=== PATIENT | female | born 1935 | race Caucasian/White ===

== ENCOUNTER → 2016-05-22 | Outpatient (CLI) | payer OTHER ==
[2016-05-22 10:29] LABS: BASO % 0.5 %; BASO ABS # 0.03 K/uL (0-0.2); COMPLETE YES; EOS % 3.1 %; HEMATOCRIT 44.3 % (37-47); IG% 0.2 %; LYMPH % 35.4 %; LYMPH ABS # 2.25 K/uL (1.2-3.4); MEAN CELL VOLUME 87.2 fL (80-100); MEAN CORPUSCULAR HEMOGLOBIN 29.1 pg (25-34); MEAN CORPUSCULAR HGB CONC 33.4 g/dl (32-36); MONO % 6.6 %; NEUT % 54.2 %; PLATELET COUNT 240 K/uL (130-400); RED BLOOD COUNT 5.08 M/uL (4.2-5.4); WHITE BLOOD COUNT 6.36 K/uL (4.8-10.8)
[2016-05-22 10:38] LABS: BLOOD UREA NITROGEN 29 mg/dl (7-18); BUN/CREATININE RATIO 32.5 (10-20); CALCIUM 9.5 mg/dl (8.5-10.1); CARBON DIOXIDE 27 mmol/L (21-32); CHLORIDE 103 mmol/L (98-107); CREATININE 0.89 mg/dl (0.60-1.20); GLUCOSE 141 mg/dl (70-99); POTASSIUM 4.1 mmol/L (3.5-5.1); SODIUM 139 mmol/L (136-145)
[2016-05-22 10:40] LABS: ESTIMATED AVERAGE GLUCOSE 203 mg/dl; HA1C FLAG Normal (Normal)
[2016-05-22 10:48] LABS: THYROID STIMULATING HORMONE 0.307 uIu/ml (0.300-4.500)
== END ==
LOC: C.LABUPNIT 09:59
PROVIDERS: ATTEND Family Medicine
DX: E13.9 Other specified diabetes mellitus without complications (principal); L10.9 Pemphigus, unspecified; I25.10 Atherosclerotic heart disease of native coronary artery without angina pectoris; E03.9 Hypothyroidism, unspecified

== ENCOUNTER → 2016-05-23 | Outpatient (CLI) | payer OTHER ==
[2016-05-23 10:48] LABS: URINE APPEARANCE CLOUDY (CLEAR); URINE BILIRUBIN NEG (NEG); URINE COLOR YELLOW; URINE EPITHELIAL CELL AUTO >30 /lpf (0-5); URINE NITRITE NEG (NEG); URINE SPECIFIC GRAVITY 1.016 (1.000-1.030); UROBILINOGEN NEG (NEG)
[2016-05-23 11:04] LABS: MANUAL MICROSCOPIC REQUIRED? NO; REVIEW REQ? YES
[2016-05-23 11:18] LABS: URINE MUCUS PRESENT (NONE PRSENT)
== END ==
LOC: C.LABUPNIT 09:57
PROVIDERS: ATTEND Family Medicine
DX: R41.82 Altered mental status, unspecified (principal)

== ENCOUNTER → 2016-07-05 | Outpatient (CLI) | payer OTHER ==
[2016-07-05 09:54] LABS: BASO % 0.5 %; BASO ABS # 0.04 K/uL (0-0.2); COMPLETE YES; EOS % 3.2 %; HEMATOCRIT 45.1 % (37-47); IG% 0.3 %; LYMPH % 23.7 %; LYMPH ABS # 1.85 K/uL (1.2-3.4); MEAN CELL VOLUME 87.7 fL (80-100); MEAN CORPUSCULAR HEMOGLOBIN 29.2 pg (25-34); MEAN CORPUSCULAR HGB CONC 33.3 g/dl (32-36); NEUT % 65.3 %; PLATELET COUNT 317 K/uL (130-400); RED BLOOD COUNT 5.14 M/uL (4.2-5.4); WHITE BLOOD COUNT 7.81 K/uL (4.8-10.8)
[2016-07-05 10:43] LABS: BLOOD UREA NITROGEN 26 mg/dl (7-18); BUN/CREATININE RATIO 26.3 (10-20); CALCIUM 10.1 mg/dl (8.5-10.1); CARBON DIOXIDE 31 mmol/L (21-32); CHLORIDE 100 mmol/L (98-107); CREATININE 0.98 mg/dl (0.60-1.20); GLUCOSE 188 mg/dl (70-99); POTASSIUM 3.7 mmol/L (3.5-5.1); SODIUM 139 mmol/L (136-145)
[2016-07-05 10:47] LABS: C-REACTIVE PROTEIN 1.29 mg/dl (0-0.29); RHEUMATOID FACTOR < 10.0 U/mL (0-15)
[2016-07-05 12:47] LABS: LYME DISEASE AB IGG NEG (NEG); LYME DISEASE AB IGM NEG (NEG)
--- NOTE | 2016-07-09 12:51 | CODING QUERY MEDICAL NECESSITY ---
CQSUPPORTING DIAGNOSIS NEEDED A supporting diagnosis is required for the test/procedure performed on this patient in order for us to be reimbursed by the patient's insurance. Please provide a supporting diagnosis for the following test/procedure listed below next to the test name along with your signature. *If there is no additional diagnosis for this patient that would support the following test/procedure please document that below next to the test/procedure. Test(s)/Procedure(s) that require a supporting diagnosis: DOS 07/05/16 VITAMIN D TEST Provider Signature: Date: Thank you Bibiana Villafuerte Health Information Management Once completed, please kindly fax back to [phone] For questions please call [phone]
== END ==
LOC: C.LABUPNIT 09:20
PROVIDERS: ATTEND Family Medicine
DX: L10.9 Pemphigus, unspecified (principal); I95.1 Orthostatic hypotension; N39.0 Urinary tract infection, site not specified; M15.0 Primary generalized (osteo)arthritis

== ENCOUNTER → 2016-08-29 | Outpatient (CLI) | payer OTHER ==
[2016-08-29 08:29] LABS: BASO % 0.5 %; BASO ABS # 0.03 K/uL (0-0.2); COMPLETE YES; EOS % 3.6 %; HEMATOCRIT 43.9 % (37-47); IG% 0.2 %; LYMPH % 34.9 %; MEAN CELL VOLUME 88.5 fL (80-100); MEAN CORPUSCULAR HEMOGLOBIN 28.8 pg (25-34); MEAN CORPUSCULAR HGB CONC 32.6 g/dl (32-36); MEAN PLATELET VOLUME 10.9 fL (7.4-10.4); MONO % 7.1 %; NEUT % 53.7 %; PLATELET COUNT 230 K/uL (130-400); RED BLOOD COUNT 4.96 M/uL (4.2-5.4); WHITE BLOOD COUNT 6.31 K/uL (4.8-10.8)
[2016-08-29 08:42] LABS: ALT/SGPT 19 U/L (12-78); BLOOD UREA NITROGEN 25 mg/dl (7-18); BUN/CREATININE RATIO 24.6 (10-20); CARBON DIOXIDE 34 mmol/L (21-32); CHLORIDE 101 mmol/L (98-107); GLUCOSE 226 mg/dl (70-99); POTASSIUM 4.2 mmol/L (3.5-5.1); SODIUM 140 mmol/L (136-145)
[2016-08-29 08:45] LABS: ALB/GLOB RATIO 0.9 (0.9-2); ALKALINE PHOSPHATASE 98 U/L (45-117); AST/SGOT 11 U/L (15-37)
[2016-08-29 08:48] LABS: CALCIUM 9.7 mg/dl (8.5-10.1)
[2016-08-29 10:57] LABS: ESTIMATED AVERAGE GLUCOSE 232 mg/dl; HA1C FLAG Normal (Normal)
== END | disposition home or self-care (01) ==
LOC: C.LABUPUNI 07:52
PROVIDERS: ATTEND Family Medicine
DX: E13.40 Other specified diabetes mellitus with diabetic neuropathy, unspecified (principal); J44.9 Chronic obstructive pulmonary disease, unspecified; I25.10 Atherosclerotic heart disease of native coronary artery without angina pectoris

== ENCOUNTER → 2016-10-23 | Outpatient (CLI) | payer OTHER ==
[2016-10-23 08:34] LABS: HEMATOCRIT 47.2 % (37-47); MEAN CELL VOLUME 89.4 fL (80-100); MEAN CORPUSCULAR HEMOGLOBIN 27.7 pg (25-34); MEAN CORPUSCULAR HGB CONC 30.9 g/dl (32-36); MEAN PLATELET VOLUME 11.2 fL (7.4-10.4); PLATELET COUNT 266 K/uL (130-400); RED BLOOD COUNT 5.28 M/uL (4.2-5.4); WHITE BLOOD COUNT 5.65 K/uL (4.8-10.8)
[2016-10-23 08:44] LABS: BLOOD UREA NITROGEN 23 mg/dl (7-18); BUN/CREATININE RATIO 22.8 (10-20); CALCIUM 9.5 mg/dl (8.5-10.1); CARBON DIOXIDE 33 mmol/L (21-32); CHLORIDE 104 mmol/L (98-107); GLUCOSE 126 mg/dl (70-99); POTASSIUM 4.5 mmol/L (3.5-5.1); SODIUM 141 mmol/L (136-145)
[2016-10-23 08:55] LABS: THYROID STIMULATING HORMONE 0.193 uIu/ml (0.300-4.500)
== END | disposition home or self-care (01) ==
LOC: C.LABWYN 08:03
PROVIDERS: ATTEND Internal Medicine
DX: I25.10 Atherosclerotic heart disease of native coronary artery without angina pectoris (principal); E11.9 Type 2 diabetes mellitus without complications; E03.9 Hypothyroidism, unspecified

== ENCOUNTER → 2016-11-01 | Outpatient (CLI) | payer OTHER ==
[2016-11-01 17:34] LABS: URINE APPEARANCE CLEAR (CLEAR); URINE BILIRUBIN NEG (NEG); URINE COLOR YELLOW; URINE NITRITE NEG (NEG); URINE PH 5.5 (4.5-7.5); URINE SPECIFIC GRAVITY 1.023 (1.000-1.030); UROBILINOGEN NEG (NEG)
[2016-11-01 17:41] LABS: MANUAL MICROSCOPIC REQUIRED? NO; REVIEW REQ? NO
== END | disposition home or self-care (01) ==
LOC: C.LABWYN 16:27
PROVIDERS: ATTEND Internal Medicine
DX: E11.9 Type 2 diabetes mellitus without complications (principal); E03.9 Hypothyroidism, unspecified; I25.10 Atherosclerotic heart disease of native coronary artery without angina pectoris; N39.0 Urinary tract infection, site not specified

== ENCOUNTER → 2017-02-28 | Outpatient (CLI) | payer OTHER | END | disposition home or self-care (01) | LOC: C.LABWYN 09:06 | PROVIDERS: ATTEND Internal Medicine | DX: E03.9 Hypothyroidism, unspecified (principal) ==

== ENCOUNTER 2017-05-14 09:15 | Inpatient (IN) | payer OTHER, BC ==
[~2017-05-14] VITALS: Ht 152.4 cm; Wt 82.5 kg
[2017-05-14] MEDS ORDERED: SODIUM CHLORIDE 0.9% 1000ML 1,000 ML IV SCH ×2 (09:47→16:15)
[2017-05-14 10:10] LABS: BASO % 0.5 %; BASO ABS # 0.04 K/uL (0-0.2); EOS % 3.7 %; EOS ABS # 0.28 K/uL (0-0.5); HEMATOCRIT 41.8 % (37-47); HEMOGLOBIN 14.1 g/dL (12.0-16.0); IG# 0.02 K/uL (0.00-0.02); LYMPH % 24.3 %; LYMPH ABS # 1.85 K/uL (1.2-3.4); MEAN CELL VOLUME 88.4 fL (80-100); MEAN CORPUSCULAR HEMOGLOBIN 29.8 pg (25-34); MEAN CORPUSCULAR HGB CONC 33.7 g/dl (32-36); MEAN PLATELET VOLUME 10.6 fL (7.4-10.4); MONO % 6.4 %; MONO ABS # 0.49 K/uL (0.11-0.59); NEUT % 64.8 %; NEUT ABS # 4.94 K/uL (1.4-6.5); PLATELET COUNT 233 K/uL (130-400); RED CELL DISTRIBUTION WIDTH CV 13.5 % (11.5-14.5); WHITE BLOOD COUNT 7.62 K/uL (4.8-10.8)
[2017-05-14 10:11] LABS: INR 0.9 (0.9-1.1); PTT PATIENT 26.6 SECONDS (21.0-31.0)
[2017-05-14 10:19] LABS: CALCIUM 9.8 mg/dl (8.5-10.1); CREATININE 1.05 mg/dl (0.60-1.20)
--- NOTE | 2017-05-14 10:30 | DIAGNOSTIC IMAGING REPORT ---
CHEST ONE VIEW PORTABLE CLINICAL HISTORY: Stroke COMPARISON STUDY: No previous studies for comparison. FINDINGS: There are postsurgical changes of midline sternotomy. The heart is borderline enlarged. There is no failure. There is no focal pulmonary consolidation. There are no pleural effusions. Opacities within the left mid and lower lung zone are felt to be atelectatic. There are old bilateral rib deformities. There is a left subclavian dual-chamber central venous pacemaker.[ IMPRESSION: No active disease in the chest. Electronically signed by: Oni Navarrete M.D. 05/14/2017 10:29 AM Dictated Date/Time: 05/14/2017 10:28 AM
--- NOTE | 2017-05-14 10:54 | DIAGNOSTIC IMAGING REPORT ---
HEAD CT NONCONTRAST CT DOSE: 638.56 mGycm HISTORY: Abnormal movement and left arm and left leg. Stroke TECHNIQUE: Multiaxial CT images of the head were performed without the use of intravenous contrast. Automated exposure control was utilized for this study. A dose lowering technique was utilized adhering to the principles of ALARA. Comparison: None. Findings: The paranasal sinuses and mastoid air cells are clear. The calvarium and skull base are intact. There is no mass, hematoma, midline shift, acute territorial infarct. White matter hypodensity is nonspecific but suggestive of microvascular ischemic change. The ventricles and sulci demonstrate mild age-related involutional changes. A 4 mm hypodensity within the left basal ganglia and a 5 mm hypodensity within the posterior limb of the right internal capsule best seen on image 13. These are consistent with age indeterminate lacunar infarcts. Impression: 1. No acute territorial infarct. 2. Subcentimeter hypodense foci within the left basal ganglia and posterior limb of the right internal capsule. 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 Electronically signed by: Juan Carlos Roblero M.D. 05/14/2017 10:53 AM Dictated Date/Time: 05/14/2017 10:47 AM
[2017-05-14] MEDS ORDERED: LORAZEPAM 2 MG/ML 1 ML VIAL IV STA (12:00)
[2017-05-14] MEDS ORDERED: INSDGI SC (12:04)
[2017-05-14] MEDS ORDERED: LEVO88TA PO (12:04)
[2017-05-14] MEDS ORDERED: MULTCAP33 PO (12:04)
[2017-05-14] MEDS ORDERED: INSDGI SQ (12:04)
[2017-05-14] MEDS ORDERED: BIOT1TAB5 PO (12:04)
[2017-05-14] MEDS ORDERED: ASPCH81X PO (12:04)
[2017-05-14] MEDS ORDERED: INSU100I SC (12:04)
[2017-05-14] MEDS ORDERED: LACTCAP3 PO (12:04)
[2017-05-14] MEDS ORDERED: CHOL1CAP57 PO (12:04)
[2017-05-14] MEDS ORDERED: PRMT10 PO (12:04)
[2017-05-14] MEDS ORDERED: INSU100I2 SQ (12:04)
[2017-05-14] MEDS ORDERED: DULO60CA44 PO (12:04)
[2017-05-14] MEDS ORDERED: MAGNESIUM HYDROXIDE SUSP 30 ML UDC PO PRN (14:15)
[2017-05-14] MEDS ORDERED: ONDANSETRON INJ 2 MG/ML 2 ML VIAL IV PRN (14:15)
[2017-05-14] MEDS ORDERED: GLUCAGON FOR INJ 1 MG VIAL SQ PRN (14:30)
[2017-05-14] MEDS ORDERED: GLUCOSE 40% GEL 15 GM TUBE PO PRN (14:30)
[2017-05-14] MEDS ORDERED: DEXTROSE 50% 50 ML SYR IV PRN (14:30)
[2017-05-14] MEDS ORDERED: GLUCOSE 10 TABS/TUBE PO PRN (14:30)
--- NOTE | 2017-05-14 14:31 | Neurology Consultation ---
Neurology Consultation Date of Consultation: May 14, 2017. Attending Physician: Primary Care Physician: Anton Perez Reason for Consultation: seizure like activity History of Present Illness Source: patient, family Gilda is a 81 year old female who started having left sided movement which she is unable to control. She has a PMH DM, CAD with bipass x 4 2002, pacemaker , orthostatic hypotension,dementia who states she started having issues with movement yesterday. she states she has always had movement at night with her feet but the arm was never effected. Her daughter states they gave her ativan in the ED which put her to sleep and the only movement at that time was her left foot. She denies any new medications but does say she has not felt well lately and does get alot of UTI's. She states her gait is off and she feel unsteady. denies CP, SOB, abdominal pain, numbness tingling, vision changes, N, V, bowel or bladder symptoms. Allergies Coded Allergies: Amoxicillin (Verified Allergy, Unknown, unknown, 05/14/17) Clavulanic Acid (Verified Allergy, Unknown, unknown, 05/14/17) Uncoded Allergies: ANTIBIOTIC (Adverse Reaction, Unknown, CAUSED C-DIFF, 05/14/17) Current Inpatient Medications Current Inpatient Medications Medications (Trade) Dose Ordered Sig/Krish Route Start Time Stop Time Status Last Admin Dose Admin Sodium Chloride 1,000 ml @ 50 mls/hr Q20H IV 05/14/17 09:47 06/13/17 09:46 05/14/17 10:51 50 MLS/HR Acetaminophen (Tylenol Tab) 650 mg Q4H PRN PO 05/14/17 14:15 06/13/17 14:14 UNV Magnesium Hydroxide (Milk Of Magnesia Susp) 30 ml Q12H PRN PO 05/14/17 14:15 06/13/17 14:14 UNV Ondansetron HCl (Zofran Inj) 4 mg Q6H PRN IV 05/14/17 14:15 06/13/17 14:14 UNV Nitroglycerin (Nitrostat Tab) 0.4 mg UD PRN SL 05/14/17 14:15 06/13/17 14:14 UNV Heparin Sodium (Porcine) (Heparin Sq 5000 Unit/0.5ml) 5,000 unit Q12 SQ 05/14/17 21:00 06/13/17 20:59 UNV Insulin Glargine (Lantus Solostar Pen) 10 units Q12 SC 05/14/17 21:00 06/13/17 20:59 UNV Insulin Aspart (novoLOG ASPART) SLIDING SCALE If C... ACHS SC 05/14/17 16:00 06/13/17 15:59 UNV Glucose (Glucose 40% Gel) 15-30 GRAMS 15 GRAMS... UD PRN PO 05/14/17 14:30 06/13/17 14:29 UNV Glucose (Glucose Chew Tab) 4-8 Tablets 4 Tabl... UD PRN PO 05/14/17 14:30 06/13/17 14:29 UNV Dextrose (Dextrose 50% 50ML Syringe) 25-50ML OF 50% DW IV FOR... UD PRN IV 05/14/17 14:30 06/13/17 14:29 UNV Glucagon (Glucagon Inj) 1 mg UD PRN SQ 05/14/17 14:30 06/13/17 14:29 UNV Miscellaneous Information (Consult Glycemic Management Pharmacy) 1 ea ONE STAT N/A 05/14/17 14:21 05/14/17 14:22 UNV Aspirin (Aspirin Chew) 81 mg DAILY PO 05/15/17 09:00 06/14/17 08:59 UNV Duloxetine HCl (Cymbalta Cap) 60 mg DAILY PO 05/15/17 09:00 06/14/17 08:59 UNV Levothyroxine Sodium (Synthroid Tab) 88 mcg DAILY PO 05/15/17 09:00 06/14/17 08:59 UNV Midodrine (Proamatine Tab) 10 mg TID PO 05/14/17 21:00 06/13/17 20:59 UNV Non-Formulary Medication (Cholecalciferol (Vitamin D3)) 1,000 units DAILY PO 05/15/17 09:00 06/14/17 08:59 UNV Non-Formulary Medication (Multiple Vitamins W/ Minerals (Preservision Areds)) 1 cap BID PO 05/14/17 21:00 06/13/17 20:59 UNV Physical Exam Vital Signs (Past 24 Hrs): Date Time Temp Pulse Resp B/P (MAP) Pulse Ox O2 Delivery O2 Flow Rate FiO2 05/14/17 14:26 114 18 131/72 96 Room Air 05/14/17 12:36 63 05/14/17 12:10 36.9 82 20 125/71 97 Room Air 05/14/17 10:07 63 18 171/81 96 Room Air 05/14/17 09:41 112 26 167/102 97 Room Air 05/14/17 09:30 95 Room Air 05/14/17 09:30 111 05/14/17 09:18 36.9 137 18 176/100 96 Room Air Physical Exam: Constitutional: appearance nourished, healthy and obese Ears, Nose, Mouth and Throat: mucous membranes moist, no injection and skin normal, eyes normal Cardiovascular: normal S-1 and S-2 and regular rate and rhythm Respiratory: clear to auscultation (CTA) and no rales, rhonchi or wheeze Musculoskeletal: no peripheral edema and decreased distal pulses Skin: LE neurocutaneous disease noted but skin intact LE, UE erythema left arm Eyes: extraocular muscles intact (EOMI) and pupils equal, round and reactive to light (PERRL) NEUROLOGIC EXAMINATION: Mental status: Alert and interactive Oriented [facility], May 14, 2017, daughter name and why she is here Oriented to person Speech slight dysarthria Cranial Nerves smile eye brow raise symmetric Reflexes: Deep tendon reflexes were symmetrical and graded 2/5. Plantar responses were flexor. Sensory: decreased sensation LE Coordination: finger to nose on right no bi pass, dysmetric on left Gait/Stance: Posture normal. Gait able to stand with no assistance, walks with 2 person minimal assistance Motor: Negative for pronator drift of out stretched arms with eyes closed. 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 biceps triceps deltoids 5/5 bilaterally, hip flex plantar flex ext 5/ 5 bilaterally Laboratory Results Past 24 Hours: 05/14/17 09:38 Red Blood Count 4.73, Mean Corpuscular Volume 88.4, Mean Corpuscular Hemoglobin 29.8, Mean Corpuscular Hemoglobin Concent 33.7, Mean Platelet Volume 10.6, Neutrophils (%) (Auto) 64.8, Lymphocytes (%) (Auto) 24.3, Monocytes (%) (Auto) 6.4, Eosinophils (%) (Auto) 3.7, Basophils (%) (Auto) 0.5, Neutrophils # (Auto) 4.94, Lymphocytes # (Auto) 1.85, Monocytes # (Auto) 0.49, Eosinophils # (Auto) 0.28, Basophils # (Auto) 0.04 05/14/17 09:38 Test 05/14/17 09:38 05/14/17 10:00 White Blood Count 7.62 K/uL (4.8-10.8) Red Blood Count 4.73 M/uL (4.2-5.4) Hemoglobin 14.1 g/dL (12.0-16.0) Hematocrit 41.8 % (37-47) Mean Corpuscular Volume 88.4 fL (80-100) Mean Corpuscular Hemoglobin 29.8 pg (25-34) Mean Corpuscular Hemoglobin Concent 33.7 g/dl (32-36) Platelet Count 233 K/uL (130-400) Mean Platelet Volume 10.6 fL (7.4-10.4) Neutrophils (%) (Auto) 64.8 % Lymphocytes (%) (Auto) 24.3 % Monocytes (%) (Auto) 6.4 % Eosinophils (%) (Auto) 3.7 % Basophils (%) (Auto) 0.5 % Neutrophils # (Auto) 4.94 K/uL (1.4-6.5) Lymphocytes # (Auto) 1.85 K/uL (1.2-3.4) Monocytes # (Auto) 0.49 K/uL (0.11-0.59) Eosinophils # (Auto) 0.28 K/uL (0-0.5) Basophils # (Auto) 0.04 K/uL (0-0.2) RDW Standard Deviation 44.0 fL (36.4-46.3) RDW Coefficient of Variation 13.5 % (11.5-14.5) Immature Granulocyte % (Auto) 0.3 % Immature Granulocyte # (Auto) 0.02 K/uL (0.00-0.02) Prothrombin Time 9.7 SECONDS (9.0-12.0) Prothromb Time International Ratio 0.9 (0.9-1.1) Activated Partial Thromboplast Time 26.6 SECONDS (21.0-31.0) Partial Thromboplastin Ratio 1.0 Anion Gap 6.0 mmol/L (3-11) Est Creatinine Clear Calc Drug Dose 39.3 ml/min Estimated GFR () 57.7 Estimated GFR (Non- 49.8 BUN/Creatinine Ratio 28.7 (10-20) Calcium Level 9.8 mg/dl (8.5-10.1) Magnesium Level 2.3 mg/dl (1.8-2.4) Troponin I 0.025 ng/ml (0-0.045) Thyroid Stimulating Hormone (TSH) 0.839 uIu/ml (0.300-4.500) Free Thyroxine 1.08 ng/dl (0.80-1.60) Imaging CT head- Findings: The paranasal sinuses and mastoid air cells are clear. The calvarium and skull base are intact. There is no mass, hematoma, midline shift, acute territorial infarct. White matter hypodensity is nonspecific but suggestive of microvascular ischemic change. The ventricles and sulci demonstrate mild age-related involutional changes. A 4 mm hypodensity within the left basal ganglia and a 5 mm hypodensity within the posterior limb of the right internal capsule best seen on image 13. These are consistent with age indeterminate lacunar infarcts. EEG- This is a normal awake only routine EEG. There was no electrographic seizures or epileptiform discharges. Impression 81 year old female with new onset left sided chorea like movement Plan 1. CT head negative for acute findings would be helpful to evaluate for stroke with MRI but patient had pacemaker 2. labs and check urine -ordered 3. EEG - read as normal 4. pacemaker interrogated no issues 5. admission for further work up 6. chorea type movements can be caused by hyperglycemia, hyperthyroid, stroke, lyme. will need further evaluation further recommendations to follow I have seen and discussed above patient with Dr Tracie Esposito, neurology Pt seen and examined. Pt has choreoathetotic/ballistic movements LUE, LLE with some abnl movement of face. No obvious L hemiparesis. The suddenness of onset suggests and event such as stroke. CT shows bl basal ganglia infarcts. P. Start klonopin in low dose, gabapentin with goal of attempting control with gabapentin. Dopaminegic blockade is used, but prefer to avoid given age, hx of autonomic neuropathy with orthostatis. Rec stroke boles, have added Plavix, repeat CT head in 2d, see if infarct more apparent. GERI Esposito,
[2017-05-14] MEDS ORDERED: PHARMACY GLYCEMIC MGMT CONSULT PRN (15:00)
--- NOTE | 2017-05-14 15:20 | Pharmacy Progress Note ---
Glycemic Control Intl Consult Date of Service May 14, 2017. Scope Glycemic Pharmacist consulted by Dr Reginaldo PA-C on 05/14/17 for glycemic control and to write orders per [facility] inpatient glycemic control protocol. Objective Weight (Kilograms): 80.000 Accuchecks BSG (last 24hrs): Test 05/14/17 09:38 Random Glucose 121 mg/dl (70-99) Laboratory Data (last 24hrs) Test 05/14/17 09:38 Anion Gap 6.0 mmol/L BUN/Creatinine Ratio 28.7 Blood Urea Nitrogen 30 mg/dl Creatinine 1.05 mg/dl Potassium Level 4.0 mmol/L Sodium Level 137 mmol/L White Blood Count 7.62 K/uL Red Blood Count 4.73 M/uL Hemoglobin 14.1 g/dL Hematocrit 41.8 % Mean Corpuscular Volume 88.4 fL Mean Corpuscular Hemoglobin 29.8 pg Mean Corpuscular Hemoglobin Concent 33.7 g/dl Platelet Count 233 K/uL Mean Platelet Volume 10.6 fL Neutrophils (%) (Auto) 64.8 % Lymphocytes (%) (Auto) 24.3 % Monocytes (%) (Auto) 6.4 % Eosinophils (%) (Auto) 3.7 % Basophils (%) (Auto) 0.5 % Neutrophils # (Auto) 4.94 K/uL Lymphocytes # (Auto) 1.85 K/uL Monocytes # (Auto) 0.49 K/uL Eosinophils # (Auto) 0.28 K/uL Basophils # (Auto) 0.04 K/uL Recent Pertinent Medications Outpatient Anti-diabetic Regimen: * Lantus 27 units SQ qAM, 11 units SQ qPM * Humalog 5 units TID plus sliding scale * A1c = pending with am labs (9.7% on 08/29/16) Assessment & Plan ASSESSMENT: * Ms Garnett is an 80yo diabetic female admitted for evaluation of seizure-like activity. * A1c is pending with am labs to evaluate glycemic control history. * Will initiate basal/bolus regimen based on home regimen and weight/stress 2. PLAN FOR INPATIENT GLYCEMIC CONTROL: * Basal insulin with LANTUS 15 units SQ BID * Correctional Insulin with NOVOLOG per scale ACHS or Q6hrs while NPO * Goal Range: Low 140 mg/dL - High 180 mg/dL * Correction Factor: 25 mg/dL/unit * Nutritional / Prandial insulin per carb ratio of 1 unit per 8 grams CHO consumed * Please note that the plan above was derived based on current level of insulin resistance and hospital stress. These recommendations are appropriate for inpatient admission only. Plan of care upon discharge will need to be reassessed to avoid potential outpatient hypo/hyperglycemia. Thank you.
[2017-05-14 15:29] VITALS: O2SAT 96; BMI 34.4
[2017-05-14] MEDS ORDERED: METOPROLOL TARTRATE 25 MG TAB PO ONE (16:45)
--- NOTE | 2017-05-14 16:54 | EEG Procedure Note ---
EEG Procedure Note Date of Service May 14, 2017. Start / End Times Start Time: 3:38 PM End Time: 3:56 PM Referring Physician Keke History This is a 81-year-old female who presents with abnormal movements. EEG for further evaluation of possible seizure etiology. Ativan given at about noon for abnormal movements. Home Medication List Scheduled Aspirin (Aspirin Chewable), 81 MG PO DAILY Biotin (Biotin), 1,000 MCG PO DAILY Cholecalciferol (Vitamin D3), 1,000 UNITS PO DAILY Duloxetine Hcl (Cymbalta), 60 MG PO DAILY Insulin Glargine (Lantus), 27 UNITS SQ QAM Insulin Glargine (Lantus), 11 UNITS SC QPM Insulin Lispro (Human) (Humalog), 5 UNITS SC TID Insulin Lispro (Human) (Humalog Kwikpen), UNITS SQ QID Lactobacillus (Acidophilus), 1 CAP PO DAILY Levothyroxine Sodium (Synthroid), 88 MCG PO DAILY Midodrine (Midodrine HCl), 10 MG PO TID Multiple Vitamins W/ Minerals (Preservision Areds), 1 CAP PO BID Inpatient Medication List Current Inpatient Medications Medications (Trade) Dose Ordered Sig/Krish Route Start Time Stop Time Status Last Admin Dose Admin Acetaminophen (Tylenol Tab) 650 mg Q4H PRN PO 05/14/17 14:15 06/13/17 14:14 Magnesium Hydroxide (Milk Of Magnesia Susp) 30 ml Q12H PRN PO 05/14/17 14:15 06/13/17 14:14 Ondansetron HCl (Zofran Inj) 4 mg Q6H PRN IV 05/14/17 14:15 06/13/17 14:14 Nitroglycerin (Nitrostat Tab) 0.4 mg UD PRN SL 05/14/17 14:15 06/13/17 14:14 Heparin Sodium (Porcine) (Heparin Sq 5000 Unit/0.5ml) 5,000 unit Q12 SQ 05/14/17 21:00 06/13/17 20:59 Insulin Glargine (Lantus Solostar Pen) 15 units BID SC 05/14/17 21:00 06/13/17 20:59 Insulin Aspart (novoLOG ASPART) SLIDING SCALE If C... ACHS SC 05/14/17 16:30 06/13/17 16:29 Glucose (Glucose 40% Gel) 15-30 GRAMS 15 GRAMS... UD PRN PO 05/14/17 14:30 06/13/17 14:29 Glucose (Glucose Chew Tab) 4-8 Tablets 4 Tabl... UD PRN PO 05/14/17 14:30 06/13/17 14:29 Dextrose (Dextrose 50% 50ML Syringe) 25-50ML OF 50% DW IV FOR... UD PRN IV 05/14/17 14:30 06/13/17 14:29 Glucagon (Glucagon Inj) 1 mg UD PRN SQ 05/14/17 14:30 06/13/17 14:29 Miscellaneous Information (Consult Glycemic Management Pharmacy) 1 ea UD PRN N/A 05/14/17 15:00 06/13/17 14:59 Aspirin (Aspirin Chew) 81 mg DAILY PO 05/15/17 09:00 06/14/17 08:59 Duloxetine HCl (Cymbalta Cap) 60 mg DAILY PO 05/15/17 09:00 06/14/17 08:59 Levothyroxine Sodium (Synthroid Tab) 88 mcg DAILYBB PO 05/15/17 06:30 06/14/17 06:29 Midodrine (Proamatine Tab) 10 mg TID@0600,1200,1800 PO 05/14/17 18:00 06/13/17 17:59 Cholecalciferol (Vitamin D Tab) 1,000 inter.unit DAILY PO 05/15/17 09:00 06/14/17 08:59 Multivitamins/ Minerals (Multivitamin W/ Minerals Tab) 1 tab BID PO 05/14/17 21:00 06/13/17 20:59 Metoprolol Tartrate (Lopressor Tab) 25 mg NOW ONCE PO 05/14/17 16:45 05/14/17 16:46 Sodium Chloride 1,000 ml @ 80 mls/hr [id number] IV 05/14/17 16:15 05/15/17 04:44 Metoprolol Tartrate (Lopressor Tab) 25 mg BID PO 05/15/17 07:00 06/14/17 06:59 Description This is a 21 electrode EEG with a single channel dedicated to limited EKG. The electrodes were placed in accordance with the International 10-20 system. Frequent intermittent muscle and movement artifact noted At the start of the recording the patient was in an awake state. Background was well organized and composed of symmetric mixed alpha and beta frequencies. There was a symmetric well-formed moderate amplitude 8-9 Hz posterior dominant rhythm that was reactive to eye opening and closure. Hyperventilation was not done. Intermittent photic stimulation was not done. There was no state changes or sleep transients. On video the patient was noted to have frequent head, neck, and upper body writhing and nonrhythmic movements (appeared like dyskinesias). Interpretation This is a normal awake only routine EEG. There was no electrographic seizures or epileptiform discharges. Clinical Correlation A normal EEG does not rule out epilepsy if there is a strong clinical suspicion. There was no EEG correlation to movement seen on video.
--- NOTE | 2017-05-14 17:06 | EMERGENCY ROOM VISIT NOTE ---
History Report prepared by [place]: Krystle Licea Under the Supervision of: Dr. Abhay Davies M.D. First contact with patient: 09:33 Chief Complaint: OTHER COMPLAINT Stated Complaint: JERKY MOTIONS - THINKS MAY BE BECAUSE OF MED History of Present Illness The patient is a 81 year old female who presents to the Emergency Room with complaints of intermittent jerking movements since yesterday. The patient states that she was making her bed yesterday and she became short of breath and had to sit down. Around that time she developed jerking movements of the left side of her body. She states that this has persisted today and seems to be more pronounced today. The patient is unable to make these jerking movements stop. She is normally able to ambulate with a walker. She has been able to walk today but states that she has felt "very wobbly." Per daughter, the patient is not having slurred speech but she is "not speaking as succinctly as normal." Daughter notes that the patient's blood sugar was low yesterday at 87. The patient denies headache, numbness, weakness, chest pain, abdominal pain, vomiting, and diarrhea. She denies any family history of Parkinson's disease. She denies any recent changes to her medications. She has a pacemaker. The only psychiatric meds she is on is Cymbalta. Source of History: patient, family Onset: yesterday Position: other (left side of body) Quality: other (jerking) Timing: intermittent, worsening Associated Symptoms: No headache, No chest pain, No vomiting, No abdominal pain, No diarrhea, No weakness, No numbness Review of Systems See HPI for pertinent positives & negatives. A total of 10 systems reviewed and were otherwise negative. Past Medical & Surgical Medical Problems: (1) Movement disorder (2) Type 2 diabetes mellitus without complications Family History Non-pertinent due to advanced age. Social History Smoking Status: Never Smoker Housing Status: shelter Current/Historical Medications Scheduled Aspirin (Aspirin Chewable), 81 MG PO DAILY Biotin (Biotin), 1,000 MCG PO DAILY Cholecalciferol (Vitamin D3), 1,000 UNITS PO DAILY Duloxetine Hcl (Cymbalta), 60 MG PO DAILY Insulin Glargine (Lantus), 27 UNITS SQ QAM Insulin Glargine (Lantus), 11 UNITS SC QPM Insulin Lispro (Human) (Humalog), 5 UNITS SC TID Insulin Lispro (Human) (Humalog Kwikpen), UNITS SQ QID Lactobacillus (Acidophilus), 1 CAP PO DAILY Levothyroxine Sodium (Synthroid), 88 MCG PO DAILY Midodrine (Midodrine HCl), 10 MG PO TID Multiple Vitamins W/ Minerals (Preservision Areds), 1 CAP PO BID Allergies Coded Allergies: Amoxicillin (Verified Allergy, Unknown, unknown, 05/14/17) Clavulanic Acid (Verified Allergy, Unknown, unknown, 05/14/17) Uncoded Allergies: ANTIBIOTIC (Adverse Reaction, Unknown, CAUSED C-DIFF, 05/14/17) Physical Exam Vital Signs Date Time Temp Pulse Resp B/P (MAP) Pulse Ox O2 Delivery O2 Flow Rate FiO2 05/14/17 12:36 63 05/14/17 12:10 36.9 82 20 125/71 97 Room Air 05/14/17 10:07 63 18 171/81 96 Room Air 05/14/17 09:41 112 26 167/102 97 Room Air 05/14/17 09:30 95 Room Air 05/14/17 09:30 111 05/14/17 09:18 36.9 137 18 176/100 96 Room Air Physical Exam Constitutional: Vital signs reviewed. Eyes: Pupils are equal round reactive to light. Conjunctiva are noninjected. ENT: Pharynx is clear without erythema or exudate. Mucous membranes are moist. Neck supple without meningeal signs. Respiratory: Clear to auscultation bilaterally. Breath sounds are equal bilaterally. Cardiovascular: Regular rate and rhythm. No rubs or gallops. GI: Soft, nondistended and nontender. Bowel sounds are present. Musculoskeletal: No peripheral edema. No lower extremity tenderness. Integumentary: No cyanosis. Neurological: The patient is awake and alert. Cranial nerves II-XII are intact. Motor is 5 out of 5 all extremities. Sensation is intact to light touch all extremities. Normal speech. She has involuntary movements to the left side of her body. She has some tongue guarding and involuntary movement of her lips as well as some gross involuntary movements of the left leg and arm. She is able to control his movement with concentration and purposeful movement for the most part. Psychiatric: Normal affect. Medical Decision & Procedures ER Provider Diagnostic Interpretation: Radiology results as stated below per my review and the radiologist's interpretation: HEAD CT NONCONTRAST CT DOSE: 638.56 mGycm HISTORY: Abnormal movement and left arm and left leg. Stroke TECHNIQUE: Multiaxial CT images of the head were performed without the use of intravenous contrast. Automated exposure control was utilized for this study. A dose lowering technique was utilized adhering to the principles of ALARA. Comparison: None. Findings: The paranasal sinuses and mastoid air cells are clear. The calvarium and skull base are intact. There is no mass, hematoma, midline shift, acute territorial infarct. White matter hypodensity is nonspecific but suggestive of microvascular ischemic change. The ventricles and sulci demonstrate mild age-related involutional changes. A 4 mm hypodensity within the left basal ganglia and a 5 mm hypodensity within the posterior limb of the right internal capsule best seen on image 13. These are consistent with age indeterminate lacunar infarcts. Impression: 1. No acute territorial infarct. 2. Subcentimeter hypodense foci within the left basal ganglia and posterior limb of the right internal capsule. 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 Electronically signed by: Juan Carlos Roblero M.D. 05/14/2017 10:53 AM Dictated Date/Time: 05/14/2017 10:47 AM CHEST ONE VIEW PORTABLE CLINICAL HISTORY: Stroke COMPARISON STUDY: No previous studies for comparison. FINDINGS: There are postsurgical changes of midline sternotomy. The heart is borderline enlarged. There is no failure. There is no focal pulmonary consolidation. There are no pleural effusions. Opacities within the left mid and lower lung zone are felt to be atelectatic. There are old bilateral rib deformities. There is a left subclavian dual-chamber central venous pacemaker.[ IMPRESSION: No active disease in the chest. Electronically signed by: Oni Navarrete M.D. 05/14/2017 10:29 AM Dictated Date/Time: 05/14/2017 10:28 AM Laboratory Results 05/14/17 09:38 Red Blood Count 4.73, Mean Corpuscular Volume 88.4, Mean Corpuscular Hemoglobin 29.8, Mean Corpuscular Hemoglobin Concent 33.7, Mean Platelet Volume 10.6, Neutrophils (%) (Auto) 64.8, Lymphocytes (%) (Auto) 24.3, Monocytes (%) (Auto) 6.4, Eosinophils (%) (Auto) 3.7, Basophils (%) (Auto) 0.5, Neutrophils # (Auto) 4.94, Lymphocytes # (Auto) 1.85, Monocytes # (Auto) 0.49, Eosinophils # (Auto) 0.28, Basophils # (Auto) 0.04 05/14/17 09:38 Test 05/14/17 09:38 05/14/17 10:00 White Blood Count 7.62 K/uL (4.8-10.8) Red Blood Count 4.73 M/uL (4.2-5.4) Hemoglobin 14.1 g/dL (12.0-16.0) Hematocrit 41.8 % (37-47) Mean Corpuscular Volume 88.4 fL (80-100) Mean Corpuscular Hemoglobin 29.8 pg (25-34) Mean Corpuscular Hemoglobin Concent 33.7 g/dl (32-36) Platelet Count 233 K/uL (130-400) Mean Platelet Volume 10.6 fL (7.4-10.4) Neutrophils (%) (Auto) 64.8 % Lymphocytes (%) (Auto) 24.3 % Monocytes (%) (Auto) 6.4 % Eosinophils (%) (Auto) 3.7 % Basophils (%) (Auto) 0.5 % Neutrophils # (Auto) 4.94 K/uL (1.4-6.5) Lymphocytes # (Auto) 1.85 K/uL (1.2-3.4) Monocytes # (Auto) 0.49 K/uL (0.11-0.59) Eosinophils # (Auto) 0.28 K/uL (0-0.5) Basophils # (Auto) 0.04 K/uL (0-0.2) RDW Standard Deviation 44.0 fL (36.4-46.3) RDW Coefficient of Variation 13.5 % (11.5-14.5) Immature Granulocyte % (Auto) 0.3 % Immature Granulocyte # (Auto) 0.02 K/uL (0.00-0.02) Prothrombin Time 9.7 SECONDS (9.0-12.0) Prothromb Time International Ratio 0.9 (0.9-1.1) Activated Partial Thromboplast Time 26.6 SECONDS (21.0-31.0) Partial Thromboplastin Ratio 1.0 Anion Gap 6.0 mmol/L (3-11) Est Creatinine Clear Calc Drug Dose 39.3 ml/min Estimated GFR () 57.7 Estimated GFR (Non- 49.8 BUN/Creatinine Ratio 28.7 (10-20) Calcium Level 9.8 mg/dl (8.5-10.1) Magnesium Level 2.3 mg/dl (1.8-2.4) Troponin I 0.025 ng/ml (0-0.045) Thyroid Stimulating Hormone (TSH) 0.839 uIu/ml (0.300-4.500) Free Thyroxine 1.08 ng/dl (0.80-1.60) Urine Color YELLOW Urine Appearance CLEAR (CLEAR) Urine pH 6.5 (4.5-7.5) Urine Specific [place] 1.005 (1.000-1.030) Urine Protein NEG (NEG) Urine Glucose (UA) NEG (NEG) Urine Ketones NEG (NEG) Urine Occult Blood NEG (NEG) Urine Nitrite NEG (NEG) Urine Bilirubin NEG (NEG) Urine Urobilinogen NEG (NEG) Urine Leukocyte Esterase TRACE (NEG) Urine WBC (Auto) /hpf (0-5) Urine RBC (Auto) /hpf (0-4) Urine Hyaline Casts (Auto) /lpf (0-5) Urine Epithelial Cells (Auto) /lpf (0-5) Urine Bacteria (Auto) (NEG) Urine RBC 0-4 /hpf (0-4) Urine WBC 1-5 /hpf (0-5) Urine Epithelial Cells 0-5 /lpf (0-5) Urine Bacteria NEG (NEG) Laboratory results as reviewed by me. Medications Administered Medications (Trade) Dose Ordered Sig/Krihs Route Start Time Stop Time Status Last Admin Dose Admin Sodium Chloride 1,000 ml @ 50 mls/hr Q20H IV 05/14/17 09:47 05/14/17 15:41 DC 05/14/17 10:51 50 MLS/HR Lorazepam (Ativan Inj) 0.5 mg NOW STAT IV 05/14/17 12:00 05/14/17 12:01 DC 05/14/17 12:08 0.5 MG ECG Per My Interpretation Indication: tachycardia Rate (beats per minute): 93 Rhythm: other (paced) Findings: T-wave inversion (Lateral), other (no concordant ST elevations) ED Course 0933: The patient was evaluated in room A11B. A complete history and physical exam was performed. 0947: NSS 1000 ml @ 50 mls/hr IV 1117: Upon reevaluation the patient is still having movements. I am going to page neurology. 1134: I spoke with Dr. Esposito of neurology. We discussed the patient's case. She recommended STAT EEG. 1139: I updated the patient and she is in agreement with the treatment plan. 1158: I spoke with Dr. Esposito again. We cannot get an EEG until later, so she recommended a benzodiazepine. 1200: Ativan 0.5 mg IV 1229: I updated the patient. She is drowsy but still moving her arm, leg, and face on the left side. 1251: The patient is sleeping now and having no involuntary movements. 1301: I spoke with Dr. Esposito again at this time. She states that it sounds like a movement disorder and recommended admission to the hospital and an EEG later tonight. 1304: I reassessed the patient at this time. She is resting comfortably and trying to eat. I discussed the results and treatment plan with the patient. I answered all pertaining questions that she had. She expressed understanding and verbalized agreement. 1312: I spoke with Vandana Christy PA-C. We discussed the patient's case. The patient will be evaluated by the [facility] for further management. Medical Decision This is an 81-year-old female presents with involuntary movements. Differential diagnosis includes simple partial seizure, intracranial mass, intracranial hemorrhage, metabolic derangement, tardive dyskinesia, somatoform disorder. I did perform a limited focused review of portions of the patient's old chart on the electronic medical record. The patient has had no recent pertinent visits to this hospital. I did evaluate the patient as noted above. IV access was established. The patient was placed on a continuous lunchroom monitor. I did order and personally review the patient's 12-lead EKG and chest x-ray as described above. I did order and review the patient's blood work as noted in the electronic medical record. Labs are unremarkable. I did order a CT of the head. I did review the images myself as well as the radiology report as described above. There is no evidence of intracranial hemorrhage or acute abnormality. I did discuss the test results with the patient. I did discuss case with Dr. Coleman of neurology. She recommended an EEG. Unfortunately we are unable to get an EEG. I called her back and she recommended giving her some Ativan in case this was seizure activity. I did give her Ativan 0.5 mg IV. The patient fell asleep and seemed to have no involuntary movements while asleep. As soon as she woke up she started having involuntary movements. She was trying to eat a hamburger and her left arm was making it difficult for her. I called Dr. Coleman back who recommended having the patient admitted to the hospital and she will arrange for an EEG later. I did discuss plan with the patient. I did discuss the case with the hospitalist and rn field case manager. The patient also had tachycardia. I did have her pacemaker interrogated. There was no acute abnormality. Of note, because of her pacemaker we were unable to get an MRI of the brain. Medication Reconcilliation Current Medication List: was personally reviewed by me Blood Pressure Screening Patient's blood pressure: Elevated blood pressure Consults Time Called: 1131 Consulting Physician: Dr. Esposito Returned Call: [address] Esposito of neurology. We discussed the patient's case. She recommended STAT EEG. Additional Consults: Time Called: 1157 Consulted Physician: Dr. Esposito Returned Call: 1158 Additional Comments: I spoke with Dr. Esposito again. We cannot get an EEG until later, so she recommended a benzodiazepine. Time Called: 1300 Consulted Physician: Dr. Esposito Returned Call: [phone] Additional Comments: I spoke with Dr. Esposito again at this time. She states that it sounds like a movement disorder and recommended admission to the hospital and an EEG later tonight. Impression Primary Impression: Involuntary movements Additional Impression: Tachycardia Scribe Attestation The scribe's documentation has been prepared under my direct and personally reviewed by me in its entirety. I confirm that the note above accurately reflects all work, treatment, procedures, and medical decision making performed by me. Departure Information Dispostion Being Evaluated By Hospitalist Referrals [facility] (PCP) Patient Instructions My [facility] Problem Qualifiers
--- NOTE | 2017-05-14 18:11 | History and Physical ---
History & Physical Date & Time of Service: May 14, 2017 at 14:28 Chief Complaint: Jerky Motions - Thinks May Be Because Of Med Primary Care Physician: Anton Perez History of Present Illness Source: patient, family, clinic records, hospital records Pt is 81 y/o F with PMH CAD s/p CABG, pacemaker for sick sinus syndrome, DM with neuropathy, orthostatic hypotension, hyperlipidemia, hypothyroidism, communication deficit, depression, presented to ER with c/o L arm and leg involuntary movement since yesterday. 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 Daughter reports that when she visited pt yesterday she noticed that that L arm and leg movements were not this severe. In ER pt given ativan and daughter reports that pt fell asleep and that there was slight movement of toes but overall movements of L arm and leg stopped. Feels is more off balance than usual. Typically uses walker to ambulate. Daughter feels like pt is as articulate with her speech today. Reports hx incidentally found stroke on previous head imaging in past. Pt was unaware of any stroke symptoms. Denies hx seizure disorder. Reports hx syncopal episode in 1969's that she had neuro workup for at that time which pt reports as negative and denies recurrent syncope. She states is "restless sleeper" and moves around at night. She is unsure of her movements at night but states will wake up with socks off and bed sheets messed up. Pt reports been told in past has dementia, however then later told that was a mis-diagnosis. Reports FH seizure disorder. Denies fever/chills , diaphoresis, N/V/D/C, KOHLI, dizziness, syncope, vision changes, neck pain, CP, SOB, orthopnea, palpitations, cough, sore throat, choking, otalgia, rhinorrhea, abdominal pain, paresthesias, extremity edema, rashes, urinary symptoms. Past Medical/Surgical History Medical Problems: (1) CAD (coronary artery disease) Permanent Comment: s/p CABG x 4 in 2001 Status: Chronic (2) Diabetes mellitus with neuropathy Status: Chronic (3) GERD (gastroesophageal reflux disease) Status: Chronic (4) Hyperlipidemia Status: Chronic (5) Hypothyroidism Status: Chronic (6) Orthostatic hypotension Status: Chronic (7) Sick sinus syndrome Permanent Comment: s/p pacer Status: Chronic (8) Type 2 diabetes mellitus without complications Status: Chronic Surgical Problems: (1) Hx of CABG Permanent Comment: CABG x 4 - 2001 Status: Resolved (2) Hx of cardiac pacemaker Status: Resolved Family History Blood clots Hypertension Seizures Social History Smoking Status: Never Smoker Smokeless Tobacco Use: No Alcohol Use: none Drug Use: none Housing status: other ([facility]) Allergies Coded Allergies: Amoxicillin (Verified Allergy, Unknown, unknown, 05/14/17) Clavulanic Acid (Verified Allergy, Unknown, unknown, 05/14/17) Uncoded Allergies: ANTIBIOTIC (Adverse Reaction, Unknown, CAUSED C-DIFF, 05/14/17) Home Medications Scheduled Aspirin (Aspirin Chewable), 81 MG PO DAILY Biotin (Biotin), 1,000 MCG PO DAILY Cholecalciferol (Vitamin D3), 1,000 UNITS PO DAILY Duloxetine Hcl (Cymbalta), 60 MG PO DAILY Insulin Glargine (Lantus), 27 UNITS SQ QAM Insulin Glargine (Lantus), 11 UNITS SC QPM Insulin Lispro (Human) (Humalog), 5 UNITS SC TID Insulin Lispro (Human) (Humalog Kwikpen), UNITS SQ QID Lactobacillus (Acidophilus), 1 CAP PO DAILY Levothyroxine Sodium (Synthroid), 88 MCG PO DAILY Midodrine (Midodrine HCl), 10 MG PO TID Multiple Vitamins W/ Minerals (Preservision Areds), 1 CAP PO BID Review of Systems Constitutional: No fever, No chills, No sweats, No weight loss, No weakness, No fatigue Eyes: No eye pain, No redness, No discharge, No diplopia ENT: No unusual epistaxis, No nasal symptoms, No sore throat, No tinnitus Respiratory: No cough, No sputum, No wheezing, No shortness of breath, No hemoptysis Cardiovascular: No chest pain, No orthopnea, No PND, No edema, No palpitations Abdomen: No pain, No nausea, No vomiting, No diarrhea, No constipation, No GI bleeding Musculoskeletal: + problem reported (+involentary movements - see HPI), No joint pain, No muscle pain, No swelling Genitourinary - Female: No dysuria, No urinary frequency, No urinary urgency, No urinary incontinence, No urinary retention, No hematuria Neurologic: No paralysis, No numbness/tingling Psychiatric: No depression symptoms, No anxiety Integumentary: No rash, No itch Physical Exam Vital Signs Date Time Temp Pulse Resp B/P (MAP) Pulse Ox O2 Delivery O2 Flow Rate FiO2 05/14/17 14:26 114 18 131/72 96 Room Air 05/14/17 12:36 63 05/14/17 12:10 36.9 82 20 125/71 97 Room Air 05/14/17 10:07 63 18 171/81 96 Room Air 05/14/17 09:41 112 26 167/102 97 Room Air 05/14/17 09:30 95 Room Air 05/14/17 09:30 111 05/14/17 09:18 36.9 137 18 176/100 96 Room Air General Appearance: WD/WN, + pertinent finding (+movements noted of L arm and L leg) Head: normocephalic, atraumatic Eyes: normal inspection, PERRL, EOMI, sclerae normal ENT: hearing grossly normal, pharynx normal, + pertinent finding (mucous membranes moist) Neck: supple, trachea midline Respiratory/Chest: lungs clear, normal breath sounds, no respiratory distress, no accessory muscle use Cardiovascular: regular rate, rhythm, normal peripheral pulses Abdomen/GI: normal bowel sounds, non tender, soft Back: no CVA tenderness Extremities/Musculoskelatal: no calf tenderness, normal capillary refill, no pedal edema, non-tender Neurologic/Psych: alert, normal mood/affect, oriented x 3, + pertinent finding (+movement to L arm and to L leg. Movement of L arm decreases and practically stops when pt gripping with L hand. strong and equal head teacher strength bilaterally. Equal and good strength to bilateral arms and legs. unsteady gait, no facial drooping or grimacing. tongue midline) Skin: normal color, warm/dry Diagnostics Laboratory Results Results Past 24 Hours Test 05/14/17 09:38 05/14/17 10:00 Range/Units White Blood Count 7.62 4.8-10.8 K/uL Red Blood Count 4.73 4.2-5.4 M/uL Hemoglobin 14.1 12.0-16.0 g/dL Hematocrit 41.8 37-47 % Mean Corpuscular Volume 88.4 80-100 fL Mean Corpuscular Hemoglobin 29.8 25-34 pg Mean Corpuscular Hemoglobin Concent 33.7 32-36 g/dl Platelet Count 233 130-400 K/uL Mean Platelet Volume 10.6 7.4-10.4 fL Neutrophils (%) (Auto) 64.8 % Lymphocytes (%) (Auto) 24.3 % Monocytes (%) (Auto) 6.4 % Eosinophils (%) (Auto) 3.7 % Basophils (%) (Auto) 0.5 % Neutrophils # (Auto) 4.94 1.4-6.5 K/uL Lymphocytes # (Auto) 1.85 1.2-3.4 K/uL Monocytes # (Auto) 0.49 0.11-0.59 K/uL Eosinophils # (Auto) 0.28 0-0.5 K/uL Basophils # (Auto) 0.04 0-0.2 K/uL RDW Standard Deviation 44.0 36.4-46.3 fL RDW Coefficient of Variation 13.5 11.5-14.5 % Immature Granulocyte % (Auto) 0.3 % Immature Granulocyte # (Auto) 0.02 0.00-0.02 K/uL Prothrombin Time 9.7 9.0-12.0 SECONDS Prothromb Time International Ratio 0.9 0.9-1.1 Activated Partial Thromboplast Time 26.6 21.0-31.0 SECONDS Partial Thromboplastin Ratio 1.0 Sodium Level 137 136-145 mmol/L Potassium Level 4.0 3.5-5.1 mmol/L Chloride Level 103 98-107 mmol/L Carbon Dioxide Level 28 21-32 mmol/L Anion Gap 6.0 3-11 mmol/L Blood Urea Nitrogen 30 7-18 mg/dl Creatinine 1.05 0.60-1.20 mg/dl Est Creatinine Clear Calc Drug Dose 39.3 ml/min Estimated GFR () 57.7 Estimated GFR (Non- 49.8 BUN/Creatinine Ratio 28.7 10-20 Random Glucose 121 70-99 mg/dl Calcium Level 9.8 8.5-10.1 mg/dl Magnesium Level 2.3 1.8-2.4 mg/dl Troponin I 0.025 0-0.045 ng/ml Thyroid Stimulating Hormone (TSH) 0.839 0.300-4.500 uIu/ml Free Thyroxine 1.08 0.80-1.60 ng/dl Diagnostic Radiology CXR: IMPRESSION: No active disease in the chest CT HEAD: Impression: 1. No acute territorial infarct. 2. Subcentimeter hypodense foci within the left basal ganglia and posterior limb of the right internal capsule. 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 EKG EKG: AV dual paced rhythm Impression Assessment and Plan INVOLUNTARY MOVEMENTS Pt with onset of involuntary movements to L arm and L leg started yesterday. Pt afebrile, TSH: 0.8. No leukocytosis. negative UA. negative CXR. CT head: No acute territorial infarct. Subcentimeter hypodense foci within the left basal ganglia and posterior limb of the right internal capsule. 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 Does not appear to be seizure like activity. DDX: chorea, athetosis, psychiatric component. -EEG ordered -neuro consult -neuro checks -if neuro workup negative may need to consider psych consult SICK SINUS SYNDROME S/P PACER EKG in ER paced rhythm. Pt initially tachy 137 in ER, then down to 60's. No CP or SOB or palpitations. Pacer interrogation ordered in ER. Pt was on metoprolol 25mg BID in past. She is unsure when/why that was discontinued. On floor pt had rate 130, EKG ordered but pt no longer tachy -will resume metoprolol 25mg BID and continue to monitor -continue ASA DIABETES MELLITUS Pt's daughter reports pt's BS "all over the place" -HA1c in am -novolog sliding scale, lantus, glycemic consult ORTHOSTATIC HYPOTENSION No recent symptoms -continue midodrine HYPOTHYROIDISM TSH: 0.8 -continue levothyroxine HX DEPRESSION -continue Cymbalta DVT Prophylaxis -heparin SQ Disposition admit tele DNR/DNI as per discussion with pt Follows with Dr Moreira at [facility] for routine care Pt was seen with Dr See. See addendum ATTENDING ADDENDUM : pt seen and examined care co -ordinated with Vandana Christy PA-C 81 yo f with complex past medical hx as outlined above presents with sudden involuntary movement of left arm -started this AM CT head shows : Subcentimeter hypodense foci within the left basal ganglia and posterior limb of the right internal capsule. MRI of brain could not be done due to presence of pacemaker P/E: gen elderly female , no apparent distress HEENT : sclera non icteric , PERRLA/EOMI HT: regular tachycardic Lungs: no wheeze or rales noted abdomen : soft non tender neuro: Awake and alert , able to have conversation properly Involuntary rapid upward movement of left arm followed by Chorea type movement able to head teacher hand , strength 4/5 .pt seems to be oblivious of her left arm movement denies of any discomfort or lack of sensation A/P : LEFT INVOLUNTARY ARM MOVEMENT : possible due to Stroke ? CT head shows possible lacunar infarct of basal ganglia and post limb of rt int capsule EEG shows no evidence of Sz appreciate input form Neurology ordered for Carotid Doppler /ECHO pt will be started on Aspirin and Plavix fasting lipid panel in AM may need initiation of Stain if LDL > 70 TACHYARRHYTHMIA pt developed intermittent sinus tachycardia 130-140 with out any symptom has pacemaker for hx of SSS Lopressor resumed Cardiology eval requested Please refer to documentation of Vandana Wheeler for further discussion of other issues Anastasiya See MD : Level of Care Telemetry Resuscitation Status DO NOT RESUSCITATE VTE Prophylaxis VTE Risk Assessment Done? Y/N: Yes Risk Level: Moderate Given or contraindicated: Unfractionated heparin SQ Additional Copies To Ronni Moreira D.O.
[2017-05-14] MEDS: INSULIN ASPART 100 UNITS/ML 3 ML PEN SC SCH ×2 (18:22→20:20)
[2017-05-14] MEDS: MIDODRINE 10 MG TAB PO SCH (18:24)
[2017-05-14 18:27] VITALS: BP 116/47; PULSE 78
[2017-05-14] MEDS ORDERED: METOPROLOL TARTRATE 1 MG/ML VIAL IV PRN (18:45)
[2017-05-14 19:22] VITALS: BP 126/58; PULSE 66; TEMP 36.9; O2SAT 93
[2017-05-14] MEDS: CLOPIDOGREL BISULFATE 75 MG TAB PO SCH (19:58)
[2017-05-14] MEDS: GABAPENTIN 100 MG CAP PO SCH (19:58)
[2017-05-14] MEDS: CEROVITE ADV FORMULA TAB PO SCH (19:59)
[2017-05-14] MEDS: CLONAZEPAM 0.5 MG TAB PO SCH (19:59)
[2017-05-14] MEDS: HEPARIN SOD 5000 UNIT/0.5 ML CARP SQ SCH (20:25)
[2017-05-14] MEDS ORDERED: INSULIN GLARGINE SOLOSTAR 100 UNITS/ML 3 ML PEN SC SCH (21:00)
[2017-05-15] VITALS (7 sets, daily range): BP systolic 112–169; BP diastolic 58–92; PULSE 66–111; TEMP 36.3–36.8; O2SAT 90–98; Ht 152.4 cm; Wt 82.5 kg
[2017-05-15] MEDS: LEVOTHYROXINE 88 MCG TAB PO SCH (05:18)
[2017-05-15] MEDS: MIDODRINE 10 MG TAB PO SCH ×3 (05:18→17:20)
[2017-05-15 06:04] LABS: HEMATOCRIT 43.6 % (37-47); HEMOGLOBIN 14.6 g/dL (12.0-16.0); MEAN CELL VOLUME 89.5 fL (80-100); MEAN CORPUSCULAR HGB CONC 33.5 g/dl (32-36); MEAN PLATELET VOLUME 10.7 fL (7.4-10.4); PLATELET COUNT 233 K/uL (130-400); RED CELL DISTRIBUTION WIDTH CV 13.7 % (11.5-14.5); WHITE BLOOD COUNT 6.89 K/uL (4.8-10.8)
[2017-05-15 06:35] LABS: CALCIUM 9.5 mg/dl (8.5-10.1); CREATININE 1.08 mg/dl (0.60-1.20); POTASSIUM 4.4 mmol/L (3.5-5.1)
[2017-05-15 06:50] LABS: HEMOGLOBIN A1C 7.9 % (4.5-5.6)
[2017-05-15] MEDS: CHOLECALCIFEROL 1000 INTER.UNIT TAB PO SCH (07:32)
[2017-05-15] MEDS: ASPIRIN 81 MG CHEW PO SCH (07:32)
[2017-05-15] MEDS: CLOPIDOGREL BISULFATE 75 MG TAB PO SCH (07:33)
[2017-05-15] MEDS: GABAPENTIN 100 MG CAP PO SCH ×3 (07:33→20:40)
[2017-05-15] MEDS: CEROVITE ADV FORMULA TAB PO SCH ×2 (07:33→20:41)
[2017-05-15] MEDS: DULOXETINE HCL 60 MG CAP PO SCH (07:33)
[2017-05-15] MEDS: CLONAZEPAM 0.5 MG TAB PO SCH ×3 (07:37→20:38)
[2017-05-15] MEDS: HEPARIN SOD 5000 UNIT/0.5 ML CARP SQ SCH ×2 (07:41→20:42)
[2017-05-15] MEDS: INSULIN GLARGINE SOLOSTAR 100 UNITS/ML 3 ML PEN SC SCH ×2 (07:42→20:39)
--- NOTE | 2017-05-15 09:34 | DIAGNOSTIC IMAGING REPORT ---
ULTRASOUND OF THE CAROTID ARTERIES CLINICAL HISTORY: right basal ganglia infarct COMPARISON STUDY: None. TECHNIQUE: Real-time, grayscale, and color Doppler sonography of the carotid arteries was performed. Imaging reviewed in the transverse and longitudinal planes. NASCET criteria was utilized for stenosis calcification. FINDINGS: There is mild atherosclerotic plaque present . The peak systolic velocity within the right internal carotid artery is 107 cm/sec. The systolic velocity ratio of right internal to common carotid artery is 2.1. The peak systolic velocity within the left internal carotid artery is 88 cm/sec. The systolic velocity ratio left internal to common carotid artery is 1.2. Antegrade flow is seen in the vertebral arteries. The external carotid arteries are patent. Blood pressure in the right arm measured 155 mm/Hg. Blood pressure in the left arm measured 171 mm/Hg. IMPRESSION: No evidence of hemodynamically significant carotid stenosis. Electronically signed by: Oni Navarrete M.D. 05/15/2017 9:32 AM Dictated Date/Time: 05/15/2017 9:31 AM
[2017-05-15] MEDS ORDERED: PERFLUTREN LIPID MICROSPHERE (DEFINITY) IV ONE (09:55)
--- NOTE | 2017-05-15 10:11 | ECHOCARDIOGRAM REPORT ---
*NOTICE TO RECEIVING CONSTITUTION PARTY AGENCY This information is strictly Confidential and protected under [place] law. [place] law prohibits you from making any further disclosure of this information unless further disclosure is expressly permitted by the written consent of the person to whom it pertains or is authorized by law. A general authorization for the release of medical or other information is not sufficient for this purpose. Hospital accepts no responsibility if the information is made available to any other person, INCLUDING THE PATIENT. Interpretation Summary * Name: DORIAN TAYLOR Study Date: 05/15/2017 06:51 AM BP: 114/92 mmHg * Patient Location: [facility]\S\[id number]\S\2 HR: 95 * : 1935 (M/d/yyyy) Gender: Female Height: 60 in * Age: 81 yrs Ethnicity: [place] Weight: 176 lb * Ordering Physician: Anastasiya See * Referring Physician: ALEXIA LOWRY * * BSA: 1.8 m2 * Patient has movement disorder, arms constantly moving * -- Conclusions -- * Technically difficult study due to patient body movements. * Small, underfilled LV chamber size with mild concentric LVH. * Hyperdynamic LV systolic function, EF >70%. * No segmental left ventricular wall motion abnormalities are noted. * Grade I diastolic dysfunction. * No significant valvular pathology. Procedure Details * A saline contrast injection was performed to assess for cardiac shunting. * The injection was performed through an intravenous line in the right arm. * The attending nurse who injected the saline contrast was BRIGITTE BANSAL RN. * A total of 20 cc of agitated saline was given. * A contrast injection of Definity was performed to improve assessment of LV function. * Contrast was injected into an intravenous site in the right arm. * One vial of Definity ultrasound contrast was diluted in normal saline to a total volume of 10 ml. A total of '1' ml of solution was administered during imaging. * Lot # [id number] of Definity utilized for procedure. * Expiration date APR 12. * The attending nurse who injected the contrast agent was BRIGITTE BANSAL RN. Left Ventricle * The left ventricular cavity is small. * There is moderate concentric left ventricular hypertrophy. * The left ventricle is hyperdynamic. * No segmental left ventricular wall motion abnormalities are noted. * Ejection Fraction = >70 %. * The left ventricular wall motion is normal. Right Ventricle * The right ventricle is not well visualized. Atria * The left atrium is mildly dilated. * Right atrial size is normal. Mitral Valve * The mitral valve is normal in structure and function. Tricuspid Valve * The tricuspid valve is normal in structure and function. Aortic Valve * The aortic valve is not well visualized. * No hemodynamically significant valvular aortic stenosis. * There is no significant aortic regurgitation. Pulmonic Valve * The pulmonary valve is not well seen, but the Doppler examination is normal without significant regurgitation or stenosis. Great Vessels * The aortic root is normal size. Pericardium/Pleural * There is no pericardial effusion. Left Ventricular Diastolic Function * Grade I diastolic dysfunction, (abnormal relaxation pattern). MMode 2D Measurements and Calculations IVSd 1.4 cm IVSs 1.9 cm LVIDd 3.0 cm LVIDs 1.9 cm LVPWd 1.7 cm LVPWs 1.8 cm IVS/LVPW 0.81 FS 35.4 % EDV(Teich) 35.0 ml ESV(Teich) 11.8 ml EF(Teich) 66.4 % EDV(cubed) 27.0 ml ESV(cubed) 7.3 ml EF(cubed) 73.0 % % IVS thick 39.0 % % LVPW thick 5.8 % LV mass(C)d 164.3 grams LV mass(C)dI 92.9 grams/m\S\2 LV mass(C)s 144.2 grams LV mass(C)sI 81.5 grams/m\S\2 SV(Teich) 23.3 ml SI(Teich) 13.2 ml/m\S\2 SV(cubed) 19.7 ml SI(cubed) 11.2 ml/m\S\2 Ao root diam 2.8 cm Ao root area 6.0 cm\S\2 LA dimension 4.2 cm LA/Ao 1.5 LVAd ap4 17.5 cm\S\2 LVLd ap4 7.1 cm EDV(MOD-sp4) 34.3 ml EDV(sp4-el) 36.8 ml LVAs ap4 9.1 cm\S\2 LVLs ap4 5.9 cm ESV(MOD-sp4) 11.9 ml ESV(sp4-el) 12.1 ml EF(MOD-sp4) 65.3 % EF(sp4-el) 67.1 % LVAd ap2 16.9 cm\S\2 LVLd ap2 7.5 cm EDV(MOD-sp2) 30.7 ml EDV(sp2-el) 32.2 ml LVAs ap2 8.9 cm\S\2 LVLs ap2 6.1 cm ESV(MOD-sp2) 10.8 ml ESV(sp2-el) 10.9 ml EF(MOD-sp2) 64.9 % EF(sp2-el) 66.1 % LVLd %diff 5.7 % EDV(MOD-bp) 32.9 ml LVLs %diff 3.7 % ESV(MOD-bp) 11.6 ml EF(MOD-bp) 64.5 % SV(MOD-sp4) 22.4 ml SI(MOD-sp4) 12.7 ml/m\S\2 SV(MOD-sp2) 20.0 ml SI(MOD-sp2) 11.3 ml/m\S\2 SV(MOD-bp) 21.2 ml SI(MOD-bp) 12.0 ml/m\S\2 SV(sp4-el) 24.7 ml SI(sp4-el) 14.0 ml/m\S\2 SV(sp2-el) 21.3 ml SI(sp2-el) 12.1 ml/m\S\2 Doppler Measurements and Calculations MV E max jaren 125.5 cm/sec MV dec time 0.09 sec Ao V2 max 135.9 cm/sec Ao max PG 7.4 mmHg Ao max PG (full) 5.5 mmHg LV V1 max PG 1.8 mmHg LV V1 max 68.0 cm/sec
[2017-05-15] MEDS: METOPROLOL TARTRATE 25 MG TAB PO SCH ×2 (10:20→20:41)
[2017-05-15] MEDS: INSULIN ASPART 100 UNITS/ML 3 ML PEN SC SCH ×4 (10:23→20:42)
--- NOTE | 2017-05-15 10:39 | CARDIOLOGY CONSULTATION ---
DATE OF CONSULTATION: 05/15/2017 CONSULTATION REQUESTED BY: Veronica Khanna PA-C. REASON FOR CONSULTATION: Tachycardia. HISTORY OF PRESENT ILLNESS: Mrs. Garnett is a very pleasant 81-year-old woman who normally follows with myself as an outpatient for history of sick sinus syndrome and coronary artery disease. She presented to [facility] on 05/14/2017 with a report from the long term the patient and her daughter of uncontrollable left-sided movements. The patient states that her left arm and left leg just keep moving. She is unable to control it and it has been very distressing to her obviously. In the Emergency Department, she was found to be tachycardic on the monitor with her heart rates going up into the 130s. She was admitted to telemetry and again she had episodes of rates going from 60 beats per minute up to the 130s. Cardiac langley though the patient is without complaint. She denies any chest pain, shortness of breath, palpitations, lightheadedness, dizziness, or syncope. She states that she is just tired and run down because she has not been able to get any rest with this constant motion. PAST SURGICAL HISTORY: 1. Guidant dual chamber permanent pacemaker placement. 2. Coronary artery bypass grafting surgery x4 in 2001 with a BUTTERFIELD to the LAD, sequential vein graft to the PDA and distal RCA and vein graft to the obtuse marginal. MEDICAL ILLNESSES: 1. Coronary artery disease status post CABG. 2. Sick sinus syndrome, status post dual chamber permanent pacemaker placement. 3. Diabetes. 4. Dementia. 5. Orthostatic hypotension. 6. Diabetes. 7. Hypothyroidism. FAMILY HISTORY: Noncontributory. SOCIAL HISTORY: Denies any alcohol, tobacco or recreational drug use. She is . She currently resides at [facility]. REVIEW OF SYSTEMS: As per HPI, all other review of systems reviewed and negative at this time. ALLERGIES: AUGMENTIN. MEDICATIONS AN OUTPATIENT: 1. Aspirin 81 mg daily. 2. Midodrine 10 mg 3 times a day. 3. Cymbalta daily. 4. Biotin daily. 5. Insulin as directed. 6. Synthroid daily. PHYSICAL EXAMINATION: VITAL SIGNS: Temperature 36.5, pulse 111, respiratory rate 12, blood pressure 169/79. GENERAL: Awake, alert, oriented x3 unsettled with uncontrollable motion of her left arm and leg. HEENT: Normocephalic, atraumatic. Pupils equal, round, and reactive to light and accommodation. Extraocular muscles intact. Anicteric sclerae. Moist mucous membranes. NECK: No JVD, no bruit. CARDIOVASCULAR: Regular. Positive S4. Normal S1 and S2. No S3. No murmurs or rubs. PULMONARY: Clear to auscultation bilaterally. No rales, rhonchi, or wheezing. ABDOMEN: Bowel sounds x4, soft. No rebound, guarding, tenderness. No organomegaly. EXTREMITIES: No clubbing, cyanosis or edema. +2 pedal pulses bilaterally. SKIN: Warm and dry. TEST RESULTS: Review of telemetry monitoring shows AV sequential pacing with rates up into the 140s. Again, this is AV pacing into the 140s, very short salvos of atrial fibrillation with ventricular pacing. Device interrogation shows an appropriately functioning dual chamber permanent pacemaker, 2 years to LAURA. Both minute ventilation sensor and rate response sensors are in place. IMPRESSION: Rate responsive tachycardia secondary to uncontrollable left arm movements. RECOMMENDATIONS: It was my pleasure to see Mrs. Garnett in consultation today. Given the clinical context and the device interrogation, it appears that her device is being confused by her movements and actually firing under its rate responsive program. I have discussed this with [employer] weed science research technician and the minute ventilation sensor will be turned off given that this is what stripping the device otherwise this is not a significant cardiac issue and no further testing is necessary at this time. The patient was on metoprolol 25 mg b.i.d. in the past and has been discontinued since my last visit in June, unclear why but we will restart at this time. Otherwise, it is okay to discontinue telemetry from a cardiac standpoint and my office will arrange outpatient pacemaker followup.
--- NOTE | 2017-05-15 12:25 | DIAGNOSTIC IMAGING REPORT ---
CT HEAD WITHOUT CONTRAST (CT) CLINICAL HISTORY: follow up CT head for stroke COMPARISON STUDY: 05/14/2017 TECHNIQUE: Axial CT of the brain is performed from the vertex to the skull base. IV contrast was not administered for this examination. A dose lowering technique was utilized adhering to the principles of ALARA. CT DOSE: 887.21 mGycm FINDINGS: No intra or extra-axial mass lesions are visualized. There is no CT evidence of acute cortical infarction. There is no evidence of midline shift. There is no acute hemorrhage. No calvarial fractures are visualized. There are patchy white matter hypodensities likely on a small vessel basis. There is a suspected lacunar infarct near the junction of the pelvis and right internal capsule. This was present on the prior study. The previously identified left basal ganglia lacunar infarct is more difficult to visualize There is no evidence of pathologic ventricular dilatation. There is no evidence of acute sinusitis IMPRESSION: No acute intracranial findings Electronically signed by: Oni Navarrete M.D. 05/15/2017 12:23 PM Dictated Date/Time: 05/15/2017 12:21 PM
--- NOTE | 2017-05-15 15:28 | Neurology Progress Notes ---
Neurology Progress Note Date of Service May 15, 2017. Rosaline Vo is a 81 year old female who started having left sided movement which she is unable to control. She has a PMH DM, CAD with bipass x 4 2001, pacemaker , orthostatic hypotension,dementia who states she started having issues with movement yesterday. she states she has always had movement at night with her feet but the arm was never effected. Her daughter states they gave her ativan in the ED which put her to sleep and the only movement at that time was her left foot. She denies any new medications but does say she has not felt well lately and does get alot of UTI's. She states her gait is off and she feel unsteady. denies CP, SOB, abdominal pain, numbness tingling, vision changes, N, V, bowel or bladder symptoms. Today she is sleeping when entering the room. She states the movement is starting to bother her more. denies CP, SOB, abdominal pain, one sided weakness , numbness tingling, slurred speech. Objective Date Time Temp Pulse Resp B/P (MAP) Pulse Ox O2 Delivery O2 Flow Rate FiO2 05/15/17 13:14 36.8 77 16 151/63 (92) 97 Room Air 76 124/60 (81) 05/15/17 12:45 Room Air 05/15/17 08:05 Room Air 05/15/17 07:55 36.5 111 20 169/79 (109) 90 Room Air 05/15/17 05:16 36.6 92 16 114/92 (99) 92 Room Air 05/15/17 04:00 Room Air 05/15/17 00:00 36.8 84 18 112/58 (76) 91 Room Air 05/15/17 00:00 Room Air 05/14/17 20:00 Room Air 05/14/17 19:59 130 05/14/17 19:22 36.9 66 18 126/58 (80) 93 Room Air 05/14/17 18:27 78 116/47 (70) 05/14/17 15:29 96 Room Air Last 24 Hours Test 05/14/17 16:18 05/14/17 20:17 05/15/17 05:37 05/15/17 07:32 Bedside Glucose 174 mg/dl 173 mg/dl 169 mg/dl White Blood Count 6.89 K/uL Red Blood Count 4.87 M/uL Hemoglobin 14.6 g/dL Hematocrit 43.6 % Mean Corpuscular Volume 89.5 fL Mean Corpuscular Hemoglobin 30.0 pg Mean Corpuscular Hemoglobin Concent 33.5 g/dl RDW Standard Deviation 45.0 fL RDW Coefficient of Variation 13.7 % Platelet Count 233 K/uL Mean Platelet Volume 10.7 fL Sodium Level 140 mmol/L Potassium Level 4.4 mmol/L Chloride Level 107 mmol/L Carbon Dioxide Level 26 mmol/L Anion Gap 7.0 mmol/L Blood Urea Nitrogen 31 mg/dl Creatinine 1.08 mg/dl Est Creatinine Clear Calc Drug Dose 38.1 ml/min Estimated GFR () 55.8 Estimated GFR (Non- 48.1 BUN/Creatinine Ratio 28.9 Random Glucose 169 mg/dl Estimated Average Glucose 180 mg/dl Hemoglobin A1c 7.9 % Calcium Level 9.5 mg/dl Test 05/15/17 11:36 Bedside Glucose 96 mg/dl Imaging: CT head- No intra or extra-axial mass lesions are visualized. There is no CT evidence of acute cortical infarction. There is no evidence of midline shift. There is no acute hemorrhage. No calvarial fractures are visualized. There are patchy white matter hypodensities likely on a small vessel basis. There is a suspected lacunar infarct near the junction of the pelvis and right internal capsule. This was present on the prior study. The previously identified left basal ganglia lacunar infarct is more difficult to visualize There is no evidence of pathologic ventricular dilatation. There is no evidence of acute sinusitis carotid doppler- : No evidence of hemodynamically significant carotid stenosis. TTE- Patient has movement disorder, arms constantly moving * -- Conclusions -- * Technically difficult study due to patient body movements. * Small, underfilled LV chamber size with mild concentric LVH. * Hyperdynamic LV systolic function, EF >70%. * No segmental left ventricular wall motion abnormalities are noted. * Grade I diastolic dysfunction. * No significant valvular pathology. no ASD Exam: Physical Exam: Constitutional: appearance nourished, healthy and obese Ears, Nose, Mouth and Throat: mucous membranes moist, no injection and skin normal, eyes normal Cardiovascular: normal S-1 and S-2 and regular rate and rhythm Respiratory: course breath sounds Musculoskeletal: no peripheral edema and good distal pulses Skin: no stigmata of neurocutaneous disease noted and normal and intact Eyes: extraocular muscles intact (EOMI) and pupils equal, round and reactive to light (PERRL) NEUROLOGIC EXAMINATION: Mental status: Alert and interactive Oriented [facility], 2018 Oriented to person Speech fluent with no evidence of aphasia Cranial Nerves smile eye brow raise symmetric Reflexes: Deep tendon reflexes were symmetrical and graded 2/5. Plantar responses were flexor. 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 5/5 Current Inpatient Medications Medications (Trade) Dose Ordered Sig/Krish Route Start Time Stop Time Status Last Admin Dose Admin Acetaminophen (Tylenol Tab) 650 mg Q4H PRN PO 05/14/17 14:15 06/13/17 14:14 Magnesium Hydroxide (Milk Of Magnesia Susp) 30 ml Q12H PRN PO 05/14/17 14:15 06/13/17 14:14 Ondansetron HCl (Zofran Inj) 4 mg Q6H PRN IV 05/14/17 14:15 06/13/17 14:14 Nitroglycerin (Nitrostat Tab) 0.4 mg UD PRN SL 05/14/17 14:15 06/13/17 14:14 Heparin Sodium (Porcine) (Heparin Sq 5000 Unit/0.5ml) 5,000 unit Q12 SQ 05/14/17 21:00 06/13/17 20:59 05/15/17 07:41 5,000 UNIT Insulin Glargine (Lantus Solostar Pen) 15 units BID SC 05/14/17 21:00 06/13/17 20:59 Future hold 05/15/17 07:42 15 UNITS Insulin Aspart (novoLOG ASPART) SLIDING SCALE If C... ACHS SC 05/14/17 16:30 06/13/17 16:29 05/15/17 12:42 2 UNITS Glucose (Glucose 40% Gel) 15-30 GRAMS 15 GRAMS... UD PRN PO 05/14/17 14:30 06/13/17 14:29 Glucose (Glucose Chew Tab) 4-8 Tablets 4 Tabl... UD PRN PO 05/14/17 14:30 06/13/17 14:29 Dextrose (Dextrose 50% 50ML Syringe) 25-50ML OF 50% DW IV FOR... UD PRN IV 05/14/17 14:30 06/13/17 14:29 Glucagon (Glucagon Inj) 1 mg UD PRN SQ 05/14/17 14:30 06/13/17 14:29 Miscellaneous Information (Consult Glycemic Management Pharmacy) 1 ea UD PRN N/A 05/14/17 15:00 06/13/17 14:59 Aspirin (Aspirin Chew) 81 mg DAILY PO 05/15/17 09:00 06/14/17 08:59 05/15/17 07:32 81 MG Duloxetine HCl (Cymbalta Cap) 60 mg DAILY PO 05/15/17 09:00 06/14/17 08:59 05/15/17 07:33 60 MG Levothyroxine Sodium (Synthroid Tab) 88 mcg DAILYBB PO 05/15/17 06:30 06/14/17 06:29 05/15/17 05:18 88 MCG Midodrine (Proamatine Tab) 10 mg TID@0600,1200,1800 PO 05/14/17 18:00 06/13/17 17:59 05/15/17 12:39 10 MG Cholecalciferol (Vitamin D Tab) 1,000 inter.unit DAILY PO 05/15/17 09:00 06/14/17 08:59 05/15/17 07:32 1,000 INTER.UNIT Multivitamins/ Minerals (Multivitamin W/ Minerals Tab) 1 tab BID PO 05/14/17 21:00 06/13/17 20:59 05/15/17 07:33 1 TAB Metoprolol Tartrate (Lopressor Tab) 25 mg BID PO 05/15/17 07:00 06/14/17 06:59 05/15/17 10:20 25 MG Metoprolol Tartrate (Lopressor Iv) 5 mg Q6 PRN IV 05/14/17 18:45 06/13/17 18:44 05/14/17 19:59 5 MG Clonazepam (Klonopin Tab) 0.25 mg TID PO 05/14/17 18:45 06/13/17 18:44 05/15/17 14:12 0.25 MG Gabapentin (Neurontin Cap) 100 mg TID PO 05/14/17 21:00 06/13/17 20:59 05/15/17 14:12 100 MG Clopidogrel Bisulfate (plAVix TAB) 75 mg QAM PO 05/14/17 18:45 06/13/17 18:44 05/15/17 07:33 75 MG Impression 81 year old female with new onset left sided chorea like movement Plan 1. CT head negative for acute findings would be helpful to evaluate for stroke with MRI but patient had pacemaker 2. labs and check urine -WNL 3. EEG - read as normal 4. pacemaker interrogated no issues 5. admission for further work up 6. chorea type movements can be caused by hyperglycemia, hyperthyroid, stroke, lyme. will need further evaluation this is likely stroke. 7. started klonopin .25mg TID and gabapentin 100 mg TID [address] CT head in 2 days -may be better defined area of stroke 9. carotid doppler no significant stenosis 10. TTE- ASD not assessed 11. cardiology was consulted and her pacemaker is by her movements and actually firing under its rate responsive program. They are turning it off for now and restarting her metoprolol for rate control. 12. will continue to follow I have seen and discussed above patient with Dr Tracie Esposito, neurology Pt appears the same, no obvious weakness ipsilateral to chorea/ballistic movement. Will cautiously increase clonazepam, monitoring for sedation, unsteadiness. I have avoided atypical phenothiazines bc pt age, and orthostatic hypotension and in part chosen gabapentin bc of restless legs. She has had concerns about using seroquel type drugs in the past when offered to her for "sundowning". May need to consider tetrabenazine. PT should see pt. I suspect she will need inpt PT. Will follow with you. GERI Esposito MD
--- NOTE | 2017-05-15 18:52 | Progress Note ---
Progress Note Date of Service May 15, 2017. Progress Note Subjective: patient seen and examined at bedside. No distress but with uncontrolled left arm movements Exam General Appearance: no distress, verbal, uncontrolled left arm movements Head: normocephalic, atraumatic Eyes: normal inspection, EOMI, sclerae normal ENT: hearing grossly normal Neck: supple, trachea midline Respiratory/Chest: lungs clear, normal breath sounds, no respiratory distress, no accessory muscle use Cardiovascular: regular rate, rhythm, normal peripheral pulses Abdomen/GI: normal bowel sounds, non tender, soft Back: no CVA tenderness Extremities/Musculoskelatal: no calf tenderness, normal capillary refill, no pedal edema, non-tender Neurologic/Psych: alert, normal mood/affect, oriented x 3, uncontrolled left arm movements Skin: normal color, warm/dry Initially thought that movements can be related to stroke but CT head negative for acute findings As per neurology: chorea type movements can be caused by hyperglycemia, hyperthyroid, stroke, lyme Neurology started klonopin .25mg TID and gabapentin 100 mg TID Neurology recommends further CT head imaging in near future There was no electrographic seizures or epileptiform discharges on EEG carotid doppler no significant stenosis SICK SINUS SYNDROME S/P PACER Tachyarrhythmia vs pacemaker artifacts/error Cardiology note 05/15/17: pacemaker s/p device interrogation, device is being confused by her movements and actually firing under its rate responsive program. metoprolol which patient was not taking at home recent was restarted Diabetes: insulin Hypothyroidism: continue levothyroxine History of Orthostatic hypotension: continue midodrine History of Depression: continue Cymbalta DVT Prophylaxis -heparin SQ Disposition: It is unclear at this time what is the underlying causes of the involuntary left arm movements, but patient will benefit from further hospitalization stay for monitoring and physical therapy
[2017-05-16] VITALS (7 sets, daily range): BP systolic 113–155; BP diastolic 54–79; PULSE 61–113; TEMP 36.5–37; O2SAT 90–98
[2017-05-16] MEDS: MIDODRINE 10 MG TAB PO SCH ×3 (06:01→18:22)
[2017-05-16] MEDS: LEVOTHYROXINE 88 MCG TAB PO SCH (06:01)
[2017-05-16 06:11] LABS: BASO % 0.6 %; BASO ABS # 0.05 K/uL (0-0.2); EOS % 5.6 %; EOS ABS # 0.44 K/uL (0-0.5); HEMATOCRIT 41.3 % (37-47); HEMOGLOBIN 14.2 g/dL (12.0-16.0); IG# 0.02 K/uL (0.00-0.02); LYMPH % 24.4 %; LYMPH ABS # 1.91 K/uL (1.2-3.4); MEAN CORPUSCULAR HEMOGLOBIN 30.9 pg (25-34); MEAN CORPUSCULAR HGB CONC 34.4 g/dl (32-36); MEAN PLATELET VOLUME 10.8 fL (7.4-10.4); MONO % 8.4 %; MONO ABS # 0.66 K/uL (0.11-0.59); NEUT % 60.7 %; NEUT ABS # 4.75 K/uL (1.4-6.5); PLATELET COUNT 213 K/uL (130-400); RED CELL DISTRIBUTION WIDTH CV 13.5 % (11.5-14.5); RED CELL DISTRIBUTION WIDTH SD 44.6 fL (36.4-46.3); WHITE BLOOD COUNT 7.83 K/uL (4.8-10.8)
[2017-05-16 06:48] LABS: ALBUMIN 3.3 gm/dl (3.4-5.0); CALCIUM 9.9 mg/dl (8.5-10.1); POTASSIUM 4.1 mmol/L (3.5-5.1)
[2017-05-16] MEDS: CLOPIDOGREL BISULFATE 75 MG TAB PO SCH (07:29)
[2017-05-16] MEDS: ASPIRIN 81 MG CHEW PO SCH (07:29)
[2017-05-16] MEDS: CHOLECALCIFEROL 1000 INTER.UNIT TAB PO SCH (07:29)
[2017-05-16] MEDS: DULOXETINE HCL 60 MG CAP PO SCH (07:29)
[2017-05-16] MEDS: GABAPENTIN 100 MG CAP PO SCH ×2 (07:29→13:57)
[2017-05-16] MEDS: METOPROLOL TARTRATE 25 MG TAB PO SCH ×2 (07:30→21:20)
[2017-05-16] MEDS: CEROVITE ADV FORMULA TAB PO SCH ×2 (07:30→21:20)
[2017-05-16] MEDS: CLONAZEPAM 0.5 MG TAB PO SCH ×2 (07:35→13:56)
[2017-05-16] MEDS: HEPARIN SOD 5000 UNIT/0.5 ML CARP SQ SCH ×2 (07:36→21:00)
[2017-05-16] MEDS: INSULIN GLARGINE SOLOSTAR 100 UNITS/ML 3 ML PEN SC SCH (07:36)
[2017-05-16] MEDS: INSULIN ASPART 100 UNITS/ML 3 ML PEN SC SCH ×4 (08:01→21:00)
--- NOTE | 2017-05-16 09:41 | Cardiology Follow-Up ---
Subjective Subjective Date of Service: May 16, 2017. Pt evaluation today including: conversation w/ patient, physical exam, chart review, lab review, review of studies, review of inpatient medication list Additional Details: Pt seen and examined, states that she's very tired today. Still with uncontrollable left sided movements. Denies cp, sob, palpitations, lightheadedness or dizziness. Tele reviewed: AV sequential pacing Problem List Medical Problems: (1) Involuntary movements Status: Acute (2) Tachycardia Status: Acute Review of Systems Respiratory: No see HPI, No cough, No sputum, No wheezing, No shortness of breath, No dyspnea on exertion, No dyspnea at rest, No hemoptysis, No problem reported Cardiac: No see HPI, No chest pain, No orthopnea, No PND, No edema, No claudication, No palpitations, No problem reported Objective Vital Signs Last Vital Signs Documentation Date Time Temp Pulse Resp B/P (MAP) Pulse Ox O2 Delivery O2 Flow Rate FiO2 05/16/17 08:00 Room Air 05/16/17 07:41 36.9 73 20 141/61 (87) 96 Physical Exam: General Appearance: WD/WN, + obese, + pertinent finding (chorea movements of left side) Eyes: bilateral eyes normal inspection, bilateral eyes PERRL, bilateral eyes EOMI ENT: normal ENT inspection, hearing grossly normal, pharynx normal Neck: supple, no adenopathy, thyroid normal, no JVD, no carotid bruits, trachea midline Respiratory/Chest: chest non-tender, lungs clear, normal breath sounds, no respiratory distress, no accessory muscle use Cardiovascular: regular rate, rhythm Abdomen: normal bowel sounds, non tender, soft, no organomegaly, no pulsatile mass Extremities: no pedal edema, no calf tenderness Neurologic/Psychiatric: alert, normal mood/affect, oriented x 3 Skin: normal color, warm/dry, no rash Lymphatic: no adenopathy Assessment and Plan 1. rate responsive pacemaker mediated tachycardia chorea type movements confusing pacemaker into rate responsive mode appropriate pacemaker adjustments made no further events cont metoprolol ok to d/c tele from cardiac standpoint.
--- NOTE | 2017-05-16 11:20 | DIAGNOSTIC IMAGING REPORT ---
CT HEAD WITHOUT CONTRAST (CT) CLINICAL HISTORY: Head pain status post head trauma COMPARISON STUDY: May 15, 2017 TECHNIQUE: Axial CT of the brain is performed from the vertex to the skull base. IV contrast was not administered for this examination. A dose lowering technique was utilized adhering to the principles of ALARA. CT DOSE: 614.27 mGy.cm FINDINGS: No intra or extra-axial mass lesions are visualized. There is no CT evidence of acute cortical infarction. There is no evidence of midline shift. There is no acute hemorrhage. No calvarial fractures are visualized. There are patchy white matter hypodensities likely on a small vessel basis. Again evident is a suspected old lacunar infarct in the junction of the thalamus and right internal capsule There is no evidence of pathologic ventricular dilatation. There is no evidence of acute sinusitis IMPRESSION: No acute intracranial findings Electronically signed by: Oni Navarrete M.D. 05/16/2017 11:18 AM Dictated Date/Time: 05/16/2017 11:17 AM
--- NOTE | 2017-05-16 12:35 | Pharmacy Progress Note ---
Pharmacy Glycemic Short Note 2 Date of Service May 16, 2017. Outpatient Anti-diabetic Regimen: * Lantus 27 units SQ qAM, 11 units SQ qPM * Humalog 5 units TID plus sliding scale * A1c = 7.9% 05/15/17 (9.7% on 08/29/16) ASSESSMENT: * Ms Garnett is an 80yo diabetic female admitted for evaluation of seizure-like activity. * Initiated basal/bolus regimen based on home regimen and weight/stress 2. * BSGs have been well-controlled thus far. Fasting BSG was 73 this morning, so will reduce Lantus dose slightly beginning with evening dose. PLAN FOR INPATIENT GLYCEMIC CONTROL: * Basal insulin with LANTUS 12 units SQ BID * Correctional Insulin with NOVOLOG per scale ACHS or Q6hrs while NPO * Goal Range: Low 140 mg/dL - High 180 mg/dL * Correction Factor: 30 mg/dL/unit * Nutritional / Prandial insulin per carb ratio of 1 unit per 10 grams CHO consumed PLAN FOR DISCHARGE: * Current A1c (7.9%) reflects acceptable glycemic control as an outpatient (in an 81yo patient). * Expect that patient may resume home regimen on discharge. * Please note that the plan above was derived based on current level of insulin resistance and hospital stress. These recommendations are appropriate for inpatient admission only. Plan of care upon discharge will need to be reassessed to avoid potential outpatient hypo/hyperglycemia. Thank you.
--- NOTE | 2017-05-16 15:27 | Neurology Progress Notes ---
Neurology Progress Note Date of Service May 16, 2017. Rosaline Vo is a 81 year old female who started having left sided movement which she is unable to control. She has a PMH DM, CAD with bipass x 4 2001, pacemaker , orthostatic hypotension,dementia who states she started having issues with movement yesterday. she states she has always had movement at night with her feet but the arm was never effected. Her daughter states they gave her ativan in the ED which put her to sleep and the only movement at that time was her left foot. She denies any new medications but does say she has not felt well lately and does get alot of UTI's. She states her gait is off and she feel unsteady. denies CP, SOB, abdominal pain, numbness tingling, vision changes, N, V, bowel or bladder symptoms. She is lying in bed currently and she states the movement is so bad she can't stand it. She wants to get to bedside chair because she states she does better when she is sitting up. discussed with nursing she was in a bedside chair this am and fell. denies CP, SOB, abdominal pain, one sided weakness, numbness tingling, slurred speech. Objective Date Time Temp Pulse Resp B/P (MAP) Pulse Ox O2 Delivery O2 Flow Rate FiO2 05/16/17 14:54 37.0 77 20 118/62 (80) 98 05/16/17 11:52 36.5 61 20 155/64 (94) 94 05/16/17 08:00 Room Air 05/16/17 07:41 36.9 73 20 141/61 (87) 96 05/16/17 04:27 36.8 70 18 113/55 (74) 98 Room Air 05/16/17 04:00 Room Air 05/16/17 00:06 36.6 76 20 118/54 (75) 97 Room Air 05/16/17 00:00 Room Air 05/15/17 20:00 98 Room Air 05/15/17 19:20 36.6 71 20 154/63 (93) 98 Room Air 05/15/17 16:00 36.3 66 20 150/63 (92) 91 Room Air 05/15/17 16:00 91 Room Air Last 24 Hours Test 05/15/17 16:10 05/15/17 20:22 05/16/17 05:43 2/22/18 07:40 Bedside Glucose 89 mg/dl 118 mg/dl 93 mg/dl White Blood Count 7.83 K/uL Red Blood Count 4.59 M/uL Hemoglobin 14.2 g/dL Hematocrit 41.3 % Mean Corpuscular Volume 90.0 fL Mean Corpuscular Hemoglobin 30.9 pg Mean Corpuscular Hemoglobin Concent 34.4 g/dl Platelet Count 213 K/uL Mean Platelet Volume 10.8 fL Neutrophils (%) (Auto) 60.7 % Lymphocytes (%) (Auto) 24.4 % Monocytes (%) (Auto) 8.4 % Eosinophils (%) (Auto) 5.6 % Basophils (%) (Auto) 0.6 % Neutrophils # (Auto) 4.75 K/uL Lymphocytes # (Auto) 1.91 K/uL Monocytes # (Auto) 0.66 K/uL Eosinophils # (Auto) 0.44 K/uL Basophils # (Auto) 0.05 K/uL RDW Standard Deviation 44.6 fL RDW Coefficient of Variation 13.5 % Immature Granulocyte % (Auto) 0.3 % Immature Granulocyte # (Auto) 0.02 K/uL Sodium Level 140 mmol/L Potassium Level 4.1 mmol/L Chloride Level 105 mmol/L Carbon Dioxide Level 26 mmol/L Anion Gap 9.0 mmol/L Blood Urea Nitrogen 35 mg/dl Creatinine 1.00 mg/dl Est Creatinine Clear Calc Drug Dose 41.2 ml/min Estimated GFR () 61.2 Estimated GFR (Non- 52.8 BUN/Creatinine Ratio 34.7 Random Glucose 73 mg/dl Calcium Level 9.9 mg/dl Total Bilirubin 0.8 mg/dl Aspartate Amino Transf (AST/SGOT) 43 U/L Alanine Aminotransferase (ALT/SGPT) 25 U/L Alkaline Phosphatase 105 U/L Total Protein 7.0 gm/dl Albumin 3.3 gm/dl Globulin 3.7 gm/dl Albumin/Globulin Ratio 0.9 Lyme Disease IgG Antibody NEG Lyme Disease IgM Antibody NEG Test 05/16/17 11:58 Bedside Glucose 122 mg/dl Imaging: CT head- No intra or extra-axial mass lesions are visualized. There is no CT evidence of acute cortical infarction. There is no evidence of midline shift. There is no acute hemorrhage. No calvarial fractures are visualized. There are patchy white matter hypodensities likely on a small vessel basis. Again evident is a suspected old lacunar infarct in the junction of the thalamus and right internal capsule There is no evidence of pathologic ventricular dilatation. There is no evidence of acute sinusitis Exam: Gen: alert lungs CTA CV RRR movement of left side rhythmic repeating chorea movements stops with grasping for a few minutes. Current Inpatient Medications Medications (Trade) Dose Ordered Sig/Krish Route Start Time Stop Time Status Last Admin Dose Admin Acetaminophen (Tylenol Tab) 650 mg Q4H PRN PO 05/14/17 14:15 06/13/17 14:14 Magnesium Hydroxide (Milk Of Magnesia Susp) 30 ml Q12H PRN PO 05/14/17 14:15 06/13/17 14:14 Ondansetron HCl (Zofran Inj) 4 mg Q6H PRN IV 05/14/17 14:15 06/13/17 14:14 Nitroglycerin (Nitrostat Tab) 0.4 mg UD PRN SL 05/14/17 14:15 06/13/17 14:14 Heparin Sodium (Porcine) (Heparin Sq 5000 Unit/0.5ml) 5,000 unit Q12 SQ 05/14/17 21:00 06/13/17 20:59 05/16/17 07:36 5,000 UNIT Insulin Aspart (novoLOG ASPART) SLIDING SCALE If C... ACHS SC 05/14/17 16:30 06/13/17 16:29 05/16/17 12:15 2 UNITS Glucose (Glucose 40% Gel) 15-30 GRAMS 15 GRAMS... UD PRN PO 05/14/17 14:30 06/13/17 14:29 Glucose (Glucose Chew Tab) 4-8 Tablets 4 Tabl... UD PRN PO 05/14/17 14:30 06/13/17 14:29 Dextrose (Dextrose 50% 50ML Syringe) 25-50ML OF 50% DW IV FOR... UD PRN IV 05/14/17 14:30 06/13/17 14:29 Glucagon (Glucagon Inj) 1 mg UD PRN SQ 05/14/17 14:30 06/13/17 14:29 Miscellaneous Information (Consult Glycemic Management Pharmacy) 1 ea UD PRN N/A 05/14/17 15:00 06/13/17 14:59 Aspirin (Aspirin Chew) 81 mg DAILY PO 05/15/17 09:00 06/14/17 08:59 05/16/17 07:29 81 MG Duloxetine HCl (Cymbalta Cap) 60 mg DAILY PO 05/15/17 09:00 06/14/17 08:59 05/16/17 07:29 60 MG Levothyroxine Sodium (Synthroid Tab) 88 mcg DAILYBB PO 05/15/17 06:30 06/14/17 06:29 05/16/17 06:01 88 MCG Midodrine (Proamatine Tab) 10 mg TID@0600,1200,1800 PO 05/14/17 18:00 06/13/17 17:59 05/16/17 07:29 10 MG Cholecalciferol (Vitamin D Tab) 1,000 inter.unit DAILY PO 05/15/17 09:00 06/14/17 08:59 05/16/17 07:29 1,000 INTER.UNIT Multivitamins/ Minerals (Multivitamin W/ Minerals Tab) 1 tab BID PO 05/14/17 21:00 06/13/17 20:59 05/16/17 07:30 1 TAB Metoprolol Tartrate (Lopressor Tab) 25 mg BID PO 05/15/17 07:00 06/14/17 06:59 05/16/17 07:30 25 MG Metoprolol Tartrate (Lopressor Iv) 5 mg Q6 PRN IV 05/14/17 18:45 06/13/17 18:44 05/14/17 19:59 5 MG Clonazepam (Klonopin Tab) 0.25 mg TID PO 05/14/17 18:45 06/13/17 18:44 05/16/17 13:56 0.25 MG Clopidogrel Bisulfate (plAVix TAB) 75 mg QAM PO 05/14/17 18:45 06/13/17 18:44 05/16/17 07:29 75 MG Gabapentin (Neurontin Cap) 200 mg TID PO 05/15/17 21:00 06/13/17 20:59 05/16/17 13:57 200 MG Insulin Glargine (Lantus Solostar Pen) 12 units BID SC 05/16/17 21:00 06/15/17 20:59 Impression 81 year old female with new onset left sided chorea like movement Plan 1. CT head negative for acute findings would be helpful to evaluate for stroke with MRI but patient had pacemaker 2. labs and check urine -WNL 3. EEG - read as normal 4. pacemaker interrogated no issues 5. admission for further work up 6. chorea type movements can be caused by hyperglycemia, hyperthyroid, stroke, lyme. will need further evaluation this is likely stroke. 7. stop klonopin .25mg after tomorrows 1 dose in am and stop gabapentin 100 mg TID done 8. repeat CT head in 2 days -may be better defined area of stroke-done 9. carotid doppler no significant stenosis 10. TTE- ASD not assessed 11. cardiology was consulted and her pacemaker was readjusted for movements. They are turning it off for now and restarting her metoprolol for rate control. 12. start haldol .25mg TID tomorrow am I have seen and discussed above patient with Dr Tracie Esposito, neurology Pt sleeping, did not awaken as she is free from ballistic/choreiform mvt in sleep. Clonazepam and gabapentin have not been helpful. Will stop gabapentin and taper clonazepam over 1 day and cautiously try haldol Etiology of movement likely post-stroke, consider repeat CT head in a few days.
[2017-05-16] MEDS: HALOPERIDOL 0.5 MG TAB PO SCH ×2 (18:22→21:19)
--- NOTE | 2017-05-16 18:59 | Progress Note ---
Progress Note Date of Service May 16, 2017. Progress Note Subjective: patient seen and examined at bedside. No distress but still with uncontrolled left arm movements. Today this AM she banged her elbow while in bathroom. Then subsequently she had episode where she may have fallen and as per nurse was found wedged to side of toilet. Patient reports baning her shoulder but was unsure whether or not she banged her head. CT head without evidence of intracranial bleed Exam General Appearance: no distress, verbal, uncontrolled left arm movements Head: normocephalic, atraumatic Eyes: normal inspection, EOMI, sclerae normal ENT: hearing grossly normal Neck: supple, trachea midline Respiratory/Chest: lungs clear, normal breath sounds, no respiratory distress, no accessory muscle use Cardiovascular: regular rate, rhythm, normal peripheral pulses Abdomen/GI: normal bowel sounds, non tender, soft Back: no CVA tenderness Extremities/Musculoskelatal: no calf tenderness, normal capillary refill, no pedal edema, non-tender Neurologic/Psych: alert, normal mood/affect, oriented x 3, left chorea like movements of the arm Skin: normal color, warm/dry Plan: As per neurology: chorea type movements can be caused by hyperglycemia, hyperthyroid, stroke, lyme However patient on labs has no evidence for hyperthyroidism. Also glucose within normal limits. Lyme negative RPR pending There was no electrographic seizures or epileptiform discharges on EEG Initially thought that movements can be related to stroke but CT head negative for acute findings Patient already has 3 CT head scans with 1 performed today to rule out head trauma after falling in bathroom and it does not appear to have obvious identifiable areas for stroke Patient cannot get MRI due to pacemaker Neurology have been adjusting and starting klonapin or gabapentin or haldol to see if these medications can relieve symptoms of the left arm chorea like movements SICK SINUS SYNDROME S/P PACER Tachyarrhythmia vs pacemaker artifacts/error Cardiology note 05/15/17: pacemaker s/p device interrogation, device is being confused by her movements and actually firing under its rate responsive program. metoprolol which patient was not taking at home recent was restarted Patient has telemetry discontinued carotid doppler no significant stenosis Diabetes: insulin Hypothyroidism history: continue levothyroxine History of Orthostatic hypotension: continue midodrine History of Depression: continue Cymbalta DVT Prophylaxis -heparin SQ Disposition: It is unclear at this time what is the underlying causes of the involuntary left arm movements, but patient will benefit from further hospitalization stay for monitoring and physical therapy
[2017-05-16] MEDS ORDERED: INSULIN GLARGINE SOLOSTAR 100 UNITS/ML 3 ML PEN SC SCH (21:00)
[2017-05-17] VITALS (9 sets, daily range): BP systolic 106–162; BP diastolic 51–81; PULSE 66–106; TEMP 36.5–37.6; O2SAT 91–95
[2017-05-17] MEDS ORDERED: INSULIN ASPART 100 UNITS/ML 3 ML PEN SC SCH (02:00)
[2017-05-17] MEDS: MIDODRINE 10 MG TAB PO SCH ×3 (05:32→18:06)
[2017-05-17] MEDS: LEVOTHYROXINE 88 MCG TAB PO SCH (05:33)
[2017-05-17 07:40] LABS: ALBUMIN 3.7 gm/dl (3.4-5.0); CALCIUM 10.3 mg/dl (8.5-10.1); CREATININE 1.21 mg/dl (0.60-1.20); POTASSIUM 4.3 mmol/L (3.5-5.1)
[2017-05-17 07:43] LABS: TOTAL PROTEIN 7.9 gm/dl (6.4-8.2)
[2017-05-17] MEDS: ASPIRIN 81 MG CHEW PO SCH (08:54)
[2017-05-17] MEDS: METOPROLOL TARTRATE 25 MG TAB PO SCH ×2 (08:54→20:40)
[2017-05-17] MEDS: DULOXETINE HCL 60 MG CAP PO SCH (08:55)
[2017-05-17] MEDS: CLOPIDOGREL BISULFATE 75 MG TAB PO SCH (08:55)
[2017-05-17] MEDS: HALOPERIDOL 0.5 MG TAB PO SCH ×3 (08:56→20:38)
[2017-05-17] MEDS ORDERED: INSULIN GLARGINE SOLOSTAR 100 UNITS/ML 3 ML PEN SC SCH (09:00)
[2017-05-17] MEDS ORDERED: CLONAZEPAM 0.5 MG TAB PO ONE (09:00)
[2017-05-17] MEDS: INSULIN ASPART 100 UNITS/ML 3 ML PEN SC SCH ×4 (09:04→20:35)
[2017-05-17] MEDS: INSULIN GLARGINE SOLOSTAR 100 UNITS/ML 3 ML PEN SC SCH ×2 (09:05→20:35)
[2017-05-17] MEDS: HEPARIN SOD 5000 UNIT/0.5 ML CARP SQ SCH ×2 (09:06→20:36)
[2017-05-17] MEDS: CHOLECALCIFEROL 1000 INTER.UNIT TAB PO SCH (09:40)
[2017-05-17] MEDS: CEROVITE ADV FORMULA TAB PO SCH ×2 (09:40→20:38)
--- NOTE | 2017-05-17 12:27 | Pharmacy Progress Note ---
Pharmacy Glycemic Short Note 2 Date of Service May 17, 2017. Outpatient Anti-diabetic Regimen: * Lantus 27 units SQ qAM, 11 units SQ qPM * Humalog 5 units TID plus sliding scale * A1c = 7.9% 05/15/17 (9.7% on 08/29/16) ASSESSMENT: * Ms Garnett is an 80yo F with a PMH of CAD s/p CABG and pacer for SSS, diabetic neuropathy, depression, and reasonably well controlled type 2 diabetes ( currently HbA1C is 7.9% with a goal range of 7.6-8.0 % per the Elements of Diabetes Care Scoring Scale) who presents with seizure-like activity.She continues to be hospitalized for chorea-type movements. * Yesterday, the patient received 33 units of insulin (27 units of basal but patient did have excellent oral intake). Blood sugars yesterday ranged from 72- 122 mg/dL. This morning the patient had an episode of hypoglycemia at 61 mg/dL - OJ was given. The patient's blood sugar increased to 131 mg/dL at lunch. * For Lantus, Lantus 8 units given this morning... will utilize scale for this evening either 8 units of 12 units. If blood sugar is less than 140 mg/dL, patient will receive 8 units (representing a 40% decrease in basal which is reasonable for continuing low blood sugars). If blood sugar is 140 mg/dL or greater, patient will receive 12 units (representing a 25 % decrease in basal)- want to provide a scale to prevent rebound hyperglycemia. * Continue Novolog as post-prandial blood sugars controlled. PLAN FOR INPATIENT GLYCEMIC CONTROL: * Basal insulin with LANTUS 8-12 units SQ BID (Lantus 8 units if blood sugar less than 140 mg/dL) * Correctional Insulin with NOVOLOG per scale ACHS or Q6hrs while NPO * Goal Range: Low 110 mg/dL - High 140 mg/dL * Correction Factor: 30 mg/dL/unit * Nutritional / Prandial insulin per carb ratio of 1 unit per 10 grams CHO consumed PLAN FOR DISCHARGE: * Current A1c (7.9%) reflects acceptable glycemic control as an outpatient (in an 81yo patient). * Expect that patient may resume home regimen on discharge. * Please note that the plan above was derived based on current level of insulin resistance and hospital stress. These recommendations are appropriate for inpatient admission only. Plan of care upon discharge will need to be reassessed to avoid potential outpatient hypo/hyperglycemia. Thank you.
--- NOTE | 2017-05-17 14:20 | Neurology Progress Notes ---
Neurology Progress Note Date of Service May 17, 2017. Rosaline Vo is a 81 year old female who started having left sided movement which she is unable to control. She has a PMH DM, CAD with bipass x 4 2001, pacemaker , orthostatic hypotension,dementia who states she started having issues with movement yesterday. she states she has always had movement at night with her feet but the arm was never effected. Her daughter states they gave her ativan in the ED which put her to sleep and the only movement at that time was her left foot. She denies any new medications but does say she has not felt well lately and does get alot of UTI's. She states her gait is off and she feel unsteady. denies CP, SOB, abdominal pain, numbness tingling, vision changes, N, V, bowel or bladder symptoms. She is lying in bed currently. She is rest and states she did sleep some last night. denies CP, SOB, abdominal pain, one sided weakness, numbness tingling, slurred speech. Objective Date Time Temp Pulse Resp B/P (MAP) Pulse Ox O2 Delivery O2 Flow Rate FiO2 05/17/17 12:08 81 152/75 (100) 05/17/17 08:53 66 114/51 (72) 05/17/17 08:00 Room Air 05/17/17 07:27 36.5 69 20 134/55 (81) 95 05/17/17 00:00 Room Air 05/17/17 00:00 37.6 76 16 162/81 (108) 91 Room Air 05/16/17 20:56 37.0 113 18 131/79 (96) 90 Room Air 05/16/17 16:00 98 Room Air 05/16/17 14:54 37.0 77 20 118/62 (80) 98 Last 24 Hours Test 05/16/17 16:31 05/16/17 20:40 05/17/17 01:53 05/17/17 02:24 Bedside Glucose 72 mg/dl 92 mg/dl 62 mg/dl 89 mg/dl Test 05/17/17 06:33 05/17/17 07:40 05/17/17 11:47 Sodium Level 138 mmol/L Potassium Level 4.3 mmol/L Chloride Level 101 mmol/L Carbon Dioxide Level 29 mmol/L Anion Gap 9.0 mmol/L Blood Urea Nitrogen 34 mg/dl Creatinine 1.21 mg/dl Est Creatinine Clear Calc Drug Dose 34.0 ml/min Estimated GFR () 48.6 Estimated GFR (Non- 41.9 BUN/Creatinine Ratio 27.8 Random Glucose 90 mg/dl Calcium Level 10.3 mg/dl Magnesium Level 2.4 mg/dl Total Bilirubin 0.7 mg/dl Aspartate Amino Transf (AST/SGOT) 83 U/L Alanine Aminotransferase (ALT/SGPT) 36 U/L Alkaline Phosphatase 112 U/L Total Protein 7.9 gm/dl Albumin 3.7 gm/dl Globulin 4.2 gm/dl Albumin/Globulin Ratio 0.9 Bedside Glucose 97 mg/dl 131 mg/dl Imaging: no new imaging Exam: Gen: alert NAD lungs Course breath sound CV RRR left sided chorea type movement, somewhat slowed from yesterday Current Inpatient Medications Medications (Trade) Dose Ordered Sig/Krish Route Start Time Stop Time Status Last Admin Dose Admin Acetaminophen (Tylenol Tab) 650 mg Q4H PRN PO 05/14/17 14:15 06/13/17 14:14 Magnesium Hydroxide (Milk Of Magnesia Susp) 30 ml Q12H PRN PO 05/14/17 14:15 06/13/17 14:14 Ondansetron HCl (Zofran Inj) 4 mg Q6H PRN IV 05/14/17 14:15 06/13/17 14:14 Nitroglycerin (Nitrostat Tab) 0.4 mg UD PRN SL 05/14/17 14:15 06/13/17 14:14 Heparin Sodium (Porcine) (Heparin Sq 5000 Unit/0.5ml) 5,000 unit Q12 SQ 05/14/17 21:00 06/13/17 20:59 05/17/17 09:06 5,000 UNIT Insulin Aspart (novoLOG ASPART) SLIDING SCALE If C... ACHS SC 05/14/17 16:30 06/13/17 16:29 05/17/17 13:23 5 UNITS Glucose (Glucose 40% Gel) 15-30 GRAMS 15 GRAMS... UD PRN PO 05/14/17 14:30 06/13/17 14:29 Glucose (Glucose Chew Tab) 4-8 Tablets 4 Tabl... UD PRN PO 2/20/18 14:30 06/13/17 14:29 Dextrose (Dextrose 50% 50ML Syringe) 25-50ML OF 50% DW IV FOR... UD PRN IV 05/14/17 14:30 06/13/17 14:29 Glucagon (Glucagon Inj) 1 mg UD PRN SQ 05/14/17 14:30 06/13/17 14:29 Miscellaneous Information (Consult Glycemic Management Pharmacy) 1 ea UD PRN N/A 05/14/17 15:00 06/13/17 14:59 Aspirin (Aspirin Chew) 81 mg DAILY PO 05/15/17 09:00 06/14/17 08:59 05/17/17 08:54 81 MG Duloxetine HCl (Cymbalta Cap) 60 mg DAILY PO 05/15/17 09:00 06/14/17 08:59 05/17/17 08:55 60 MG Levothyroxine Sodium (Synthroid Tab) 88 mcg DAILYBB PO 05/15/17 06:30 06/14/17 06:29 05/17/17 05:33 88 MCG Midodrine (Proamatine Tab) 10 mg TID@0600,1200,1800 PO 05/14/17 18:00 06/13/17 17:59 05/17/17 05:32 10 MG Cholecalciferol (Vitamin D Tab) 1,000 inter.unit DAILY PO 05/15/17 09:00 06/14/17 08:59 05/17/17 09:40 1,000 INTER.UNIT Multivitamins/ Minerals (Multivitamin W/ Minerals Tab) 1 tab BID PO 05/14/17 21:00 06/13/17 20:59 05/17/17 09:40 1 TAB Metoprolol Tartrate (Lopressor Tab) 25 mg BID PO 05/15/17 07:00 06/14/17 06:59 05/17/17 08:54 25 MG Metoprolol Tartrate (Lopressor Iv) 5 mg Q6 PRN IV 05/14/17 18:45 06/13/17 18:44 05/14/17 19:59 5 MG Clopidogrel Bisulfate (plAVix TAB) 75 mg QAM PO 05/14/17 18:45 06/13/17 18:44 05/17/17 08:55 75 MG Haloperidol (Haldol Tab) 0.25 mg TID PO 05/16/17 16:45 06/15/17 16:44 05/17/17 13:21 0.25 MG Insulin Glargine (Lantus Solostar Pen) SEE PROTOCOL TEXT BID SC 05/17/17 09:00 06/16/17 08:59 05/17/17 09:05 8 UNITS Impression 81 year old female with new onset left sided chorea like movement Plan 1. CT head negative for acute findings would be helpful to evaluate for stroke with MRI but patient had pacemaker 2. labs and check urine -WNL 3. EEG - read as normal 4. pacemaker interrogated no issues 5. admission for further work up 6. chorea type movements can be caused by hyperglycemia, hyperthyroid, stroke, lyme. will need further evaluation this is likely stroke. 7. stop klonopin .25mg after tomorrows 1 dose in am and stop gabapentin 100 mg TID done 8. repeat CT head as needed 9. carotid doppler no significant stenosis 10. TTE- ASD not assessed 11. cardiology was consulted and her pacemaker was readjusted for movements and restarted metoprolol 12. start haldol .25mg TID tomorrow am, this is a low dose will need to observe if is slowing the chorea form movements- increased to .50 TID and will see if there is wearing off if so will increase to QID dosing. 13. PT/OT for discharge needs and will likely need some rehab prior to returning to her personal care situation 14. continue aspirin 81 mg and plavix 75 mg added, continue for 3 months and then plavix for a lifetime will need follow up in 2-3 weeks after discharge from rehab with Dr Tracie Esposito or Tracie Parks PAC, neurology I have seen and discussed above patient with Dr Jose Miguel De Los Santos, neurology Patient seen and case discussed with Tracie Quezada left hemiballisms are bit better but still impressive we will raise the haldol to 0.5 tid and I will follow up tomorrow Xenazine not on formulary so we will rely on dopamine receptor blockzade rater the dopamine depletion therapy here and consider a trial of topamax which has some anecdotal benefit Difficult balance here in an elderly patient in attempt to prevent excessive sedation and limit the developpment of parkinsonism which is an inevitable result of dopamine blockade Would suggest clos follow of ck and renal function as these movements can be associated with rhabdomyolysis and renal failure so would attempt to maintain adequate hydration Hopefully we can get this under control soon Jose Miguel De Los Santos MD
[2017-05-17 16:34] LABS: BLOOD UREA NITROGEN 33 mg/dl (7-18); CALCIUM 9.7 mg/dl (8.5-10.1); CARBON DIOXIDE 30 mmol/L (21-32); CREATININE 1.05 mg/dl (0.60-1.20); GLUCOSE 54 mg/dl (70-99); SODIUM 137 mmol/L (136-145)
[2017-05-17 16:38] LABS: CKMB 16.6 ng/ml (0.5-3.6)
--- NOTE | 2017-05-17 19:11 | Progress Note ---
Progress Note Date of Service May 17, 2017. Progress Note Subjective: patient seen and examined at bedside. No distress but still with uncontrolled left arm and leg movements. Exam General Appearance: no distress, verbal, uncontrolled left arm movements Head: normocephalic, atraumatic Eyes: normal inspection, EOMI, sclerae normal ENT: hearing grossly normal Neck: supple, trachea midline Respiratory/Chest: lungs clear, normal breath sounds, no respiratory distress, no accessory muscle use Cardiovascular: regular rate, rhythm, normal peripheral pulses Abdomen/GI: normal bowel sounds, non tender, soft Back: no CVA tenderness Extremities/Musculoskelatal: left arm with redness/bruises secondary to trauma Neurologic/Psych: alert, normal mood/affect, oriented x 3, left chorea like movements of the arm and left legs Skin: normal color, warm/dry Plan: As per neurology: chorea type movements (or hemiballisms) can be caused by hyperglycemia, hyperthyroid, stroke, lyme However patient on labs has no evidence for hyperthyroidism. Also has happened when glucose within normal limits. Lyme negative RPR pending There was no electrographic seizures or epileptiform discharges on EEG Initially thought that movements can be related to stroke but CT head negative for acute findings Patient already has 3 CT head scans with 1 performed today to rule out head trauma after falling in bathroom and it does not appear to have obvious identifiable areas for stroke Patient cannot get MRI due to pacemaker Neurology service have attempted klonapin and gabapentin but not successful in slowing down these movements and now using scheduled Haldol doses SICK SINUS SYNDROME S/P PACER Tachyarrhythmia vs pacemaker artifacts/error Cardiology note 05/15/17: pacemaker s/p device interrogation, device is being confused by her movements and actually firing under its rate responsive program. metoprolol which patient was not taking at home recent was restarted Patient has telemetry discontinued carotid doppler no significant stenosis Diabetes: Lantus doses reduced as patient has been having hypoglycemic episodes likely due to reduced oral intake Hypothyroidism history: continue levothyroxine History of Orthostatic hypotension: hold midodrine for now History of Depression: continue Cymbalta DVT Prophylaxis -heparin SQ Disposition: will continue to have patient monitored in hospital as medical team is attempting to relieve symptoms with haldol as per neurology service. appreciate further neurology service follow up and recommendations
[2017-05-17] MEDS: ACETAMINOPHEN 325 MG TAB PO PRN (22:53)
[2017-05-18] VITALS (9 sets, daily range): BP systolic 109–177; BP diastolic 61–83; PULSE 67–89; TEMP 36.5–37.2; O2SAT 93–96
[2017-05-18 01:07] LABS: RAPID PLASMA REAGIN NONREACTIVE (NONREACT)
[2017-05-18] MEDS: MIDODRINE 10 MG TAB PO SCH ×3 (06:11→17:23)
[2017-05-18] MEDS: LEVOTHYROXINE 88 MCG TAB PO SCH (06:11)
[2017-05-18] MEDS: HALOPERIDOL 0.5 MG TAB PO SCH ×4 (07:34→20:59)
[2017-05-18] MEDS: CEROVITE ADV FORMULA TAB PO SCH ×2 (07:36→20:55)
[2017-05-18] MEDS: METOPROLOL TARTRATE 25 MG TAB PO SCH ×2 (07:36→21:01)
[2017-05-18] MEDS: CHOLECALCIFEROL 1000 INTER.UNIT TAB PO SCH (07:37)
[2017-05-18] MEDS: CLOPIDOGREL BISULFATE 75 MG TAB PO SCH (07:37)
[2017-05-18] MEDS: DULOXETINE HCL 60 MG CAP PO SCH (07:38)
[2017-05-18] MEDS: ASPIRIN 81 MG CHEW PO SCH (07:39)
[2017-05-18] MEDS: INSULIN ASPART 100 UNITS/ML 3 ML PEN SC SCH ×4 (08:32→20:59)
[2017-05-18] MEDS: INSULIN GLARGINE SOLOSTAR 100 UNITS/ML 3 ML PEN SC SCH ×2 (08:33→20:58)
[2017-05-18] MEDS: HEPARIN SOD 5000 UNIT/0.5 ML CARP SQ SCH ×2 (08:33→20:57)
--- NOTE | 2017-05-18 13:04 | PROGRESS NOTE ---
DATE: 05/18/2017 SUBJECTIVE: Gilda remains fairly afflicted by her left hemiballismus today when sleeping of course the movements disappear, but as soon as she awakens just a little bit the arm against flailing along with the leg along with the head with almost torticollis movements to the left at times and some facial grimacing. The right side is unaffected. It is hard to tell if haldol is having any effect as she is refusing to take the dose. I am not sure why she has an idea that this is the cause of her movements and I tried to convince her to take it today and she tentatively agreed to do so, but I am not sure this will be sustained. We are not going to find the cause of this on imaging studies as in general this is a vascular causation due to a 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 and even MRI scans may fail to detect this. Serial CAT scan is certainly not recommended in this setting as the hopes of finding a small lesion on CT in the deep perithalamic area is about 0. Unfortunately, she cannot have an MRI and the issue is academic all other reasonable causations of this type of presentation had been eliminated and vascular disease remains statistically the most frequent causation in this rare syndrome. Renal functions a little marginal, we did not get the right CPK analysis yesterday, so I am going to rewrite these orders and in light of the fact we cannot get her to consistently take the Haldol. I am going to try putting on some Topamax 25 mg twice a day for a day and then move up to 50 twice a day in hopes that this might help as there is some anecdotal evidence that it has been effective in selected cases. Another option of course is Xenazine or tetrabenazine which unfortunately is not available in the hospital and probably not going to be approved by her insurance company. This has the advantage of being a dopamine depleter and may be as effective as a dopamine-blocking agent without as many as potential parkinsonian side effects, but again the issue is academic as the drugs are not available and we can only get it on an outpatient basis and likely only on an emergent request from her insurance company as iat would be an off label use I will start the Topamax, I am going to repeat a CPK and renal function today. If she begins to go into more renal failure and has evidence for rhabdomyolysis, she is going to need vigorous hydration. I will let this up to the interns of course and I will check with her tomorrow. GIO
[2017-05-18 15:59] LABS: CALCIUM 9.7 mg/dl (8.5-10.1); CREATININE 1.17 mg/dl (0.60-1.20); POTASSIUM 4.4 mmol/L (3.5-5.1)
--- NOTE | 2017-05-18 16:02 | Progress Note ---
Internal Med Progress Note Date of Service: May 18, 2017. Provider Documentation: Subjective: patient seen and examined at bedside. Earlier in AM, patient had declined the dose of haldol which was ordered as a scheduled medication by neurology service to slow down the left arm and leg movements. These movements appeared to be very active when awake but when patient is sleeping, her body is still. Exam General Appearance: no acute pain Head: normocephalic, atraumatic Eyes: normal inspection, EOMI, sclerae normal ENT: hearing grossly normal Neck: supple, trachea midline Respiratory/Chest: lungs clear, normal breath sounds, no respiratory distress, no accessory muscle use Cardiovascular: regular rate, rhythm, normal peripheral pulses Abdomen/GI: normal bowel sounds, non tender, soft Back: no CVA tenderness Extremities/Musculoskelatal: left arm with redness/bruises secondary to trauma Neurologic/Psych: alert, normal mood/affect, oriented x 3, left hemiballismus movements of the left arm and left legs (the arm against flailing along with the leg along with the head with almost torticollis movements to the left at times and some facial grimacing) ASSESSMENT & PLAN: Plan: Left hemiballismus -Patient has had [address] scans on this hospital admission that has not identified particular are of the brain which accounts for the left sided hand and leg flailing movements with some left facial grimacing -as per neurology service 05/18/17 these symptoms may be from vascular causation due to a 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 which may not be detectable with head imaging even with MRI scans -Patient cannot have MRI due to cardiac pacemaker -other workup to date: There was no electrographic seizures or epileptiform discharges on EEG, Lyme negative, RPR negative, thyroid function normal, carotid doppler no significant stenosis -Neurology service have attempted Klonopin and gabapentin but not successful in slowing down these movements but unsuccessful -Neurology service then stopped Klonopin and gabapentin treatment and switched to scheduled haldol but patient have been declining this medication -Neurology service now also adding Topamax 25 mg BID to scheduled regimen with the haldol, will attempt these treatment and monitor -alternatively, Neurology service mentioned in their notes alternative option of Xenazine or tetrabenazine which is not available in the hospital Renal function Monitor for rhabdomyolysis while on Topamax , SICK SINUS SYNDROME S/P PACER Tachyarrhythmia vs pacemaker artifacts/error Cardiology note 05/15/17: pacemaker s/p device interrogation, device is being confused by her movements and actually firing under its rate responsive program. metoprolol which patient was not taking at home recent was restarted Patient has telemetry discontinued Diabetes: is on insulin, monitor for hypoglycemia Hypothyroidism history: continue levothyroxine History of Orthostatic hypotension: hold midodrine for now History of Depression: continue Cymbalta DVT Prophylaxis: heparin SQ PT/OT, physical rehabilitation placement Vital Signs: Date Time Temp Pulse Resp B/P (MAP) Pulse Ox O2 Delivery O2 Flow Rate FiO2 05/18/17 16:00 94 Room Air 05/18/17 15:02 36.5 75 20 133/75 (94) 96 Room Air 05/18/17 11:12 120/73 (89) 05/18/17 08:00 94 Room Air 05/18/17 07:24 80 109/66 (80) 05/18/17 00:00 94 Room Air 05/17/17 23:52 36.9 77 20 141/72 (95) 93 Room Air 05/17/17 20:41 74 106/62 (77) 05/17/17 19:30 94 Room Air Lab Results: Results Past 24 Hours Test 05/17/17 16:29 05/17/17 16:54 05/17/17 20:13 05/17/17 23:57 Range/Units Bedside Glucose 60 73 191 78 70-90 mg/dl Test 05/18/17 01:14 05/18/17 07:11 05/18/17 11:29 05/18/17 15:20 Range/Units Bedside Glucose 111 126 238 70-90 mg/dl Sodium Level 134 136-145 mmol/L Potassium Level 4.4 3.5-5.1 mmol/L Chloride Level 98 98-107 mmol/L Carbon Dioxide Level 28 21-32 mmol/L Anion Gap 8.0 3-11 mmol/L Blood Urea Nitrogen 40 7-18 mg/dl Creatinine 1.17 0.60-1.20 mg/dl Est Creatinine Clear Calc Drug Dose 35.2 ml/min Estimated GFR () 50.6 Estimated GFR (Non- 43.7 BUN/Creatinine Ratio 33.9 10-20 Random Glucose 124 70-99 mg/dl Calcium Level 9.7 8.5-10.1 mg/dl Total Creatine Kinase 2099 26-192 U/L
[2017-05-18] MEDS: TOPIRAMATE 25 MG TAB PO SCH (20:55)
[2017-05-19] VITALS (8 sets, daily range): BP systolic 128–171; BP diastolic 57–83; PULSE 52–91; TEMP 35.1–37.2; O2SAT 90–92
[2017-05-19] MEDS: MIDODRINE 10 MG TAB PO SCH ×2 (06:00→12:42)
[2017-05-19] MEDS: SODIUM CHLORIDE 0.9% 1000ML 1,000 ML IV SCH ×2 (07:33→17:23)
[2017-05-19] MEDS: HEPARIN SOD 5000 UNIT/0.5 ML CARP SQ SCH ×2 (07:49→21:21)
[2017-05-19] MEDS: INSULIN GLARGINE SOLOSTAR 100 UNITS/ML 3 ML PEN SC SCH ×2 (07:50→21:22)
[2017-05-19] MEDS: INSULIN ASPART 100 UNITS/ML 3 ML PEN SC SCH ×4 (07:51→21:00)
[2017-05-19] MEDS: TOPIRAMATE 25 MG TAB PO SCH (07:57)
[2017-05-19] MEDS: HALOPERIDOL 0.5 MG TAB PO SCH (07:57)
[2017-05-19] MEDS: DULOXETINE HCL 60 MG CAP PO SCH (07:57)
[2017-05-19] MEDS: CHOLECALCIFEROL 1000 INTER.UNIT TAB PO SCH (07:57)
[2017-05-19] MEDS: CLOPIDOGREL BISULFATE 75 MG TAB PO SCH (07:58)
[2017-05-19] MEDS: CEROVITE ADV FORMULA TAB PO SCH ×2 (07:58→20:48)
[2017-05-19] MEDS: LEVOTHYROXINE 88 MCG TAB PO SCH (07:58)
[2017-05-19] MEDS: METOPROLOL TARTRATE 25 MG TAB PO SCH ×2 (07:58→20:48)
[2017-05-19] MEDS: ASPIRIN 81 MG CHEW PO SCH (08:16)
[2017-05-19 10:24] LABS: BASO % 0.3 %; BASO ABS # 0.04 K/uL (0-0.2); EOS % 0.6 %; EOS ABS # 0.07 K/uL (0-0.5); HEMATOCRIT 39.1 % (37-47); HEMOGLOBIN 13.4 g/dL (12.0-16.0); IG# 0.03 K/uL (0.00-0.02); LYMPH % 11.2 %; LYMPH ABS # 1.32 K/uL (1.2-3.4); MEAN CELL VOLUME 88.3 fL (80-100); MEAN CORPUSCULAR HEMOGLOBIN 30.2 pg (25-34); MEAN CORPUSCULAR HGB CONC 34.3 g/dl (32-36); MONO % 8.2 %; MONO ABS # 0.97 K/uL (0.11-0.59); NEUT % 79.4 %; NEUT ABS # 9.36 K/uL (1.4-6.5); PLATELET COUNT 217 K/uL (130-400); RED CELL DISTRIBUTION WIDTH CV 13.8 % (11.5-14.5); RED CELL DISTRIBUTION WIDTH SD 44.8 fL (36.4-46.3); WHITE BLOOD COUNT 11.79 K/uL (4.8-10.8)
[2017-05-19 10:56] LABS: ALBUMIN 3.2 gm/dl (3.4-5.0); BLOOD UREA NITROGEN 39 mg/dl (7-18); CALCIUM 9.6 mg/dl (8.5-10.1); CARBON DIOXIDE 28 mmol/L (21-32); CREATININE 1.01 mg/dl (0.60-1.20); GLUCOSE 118 mg/dl (70-99); POTASSIUM 4.3 mmol/L (3.5-5.1); SODIUM 136 mmol/L (136-145)
[2017-05-19 11:00] LABS: ALKALINE PHOSPHATASE 102 U/L (45-117); ALT/SGPT 66 U/L (12-78); AST/SGOT 124 U/L (15-37); CKMB 27.9 ng/ml (0.5-3.6); TOTAL PROTEIN 7.1 gm/dl (6.4-8.2)
--- NOTE | 2017-05-19 11:44 | PROGRESS NOTE ---
DATE: 05/19/2017 SUBJECTIVE: Gilda looks a little better today, but according to the nursing staff, she was up most of the night with her flailing movements. I think the leg movements are less violent, but she still has the stereotypic choreiform hemiballistic movements with the left arm and head. Her renal function is declining. She now has an IV on board. Her CPK is around 3000 and we are going to do serial analyses. The rest of the exam is unremarkable. She remains alert, oriented and is willing to take her medicines. Right now, she has been on Haldol 0.5 three times a day around the clock for at least 1 day and Topamax 25 twice a day. I am going to raise the Haldol to 1 mg 3 times a day and the Topamax to 50 twice a day. Other options exist including a trial of IV Keppra, which occasionally has worked in doses up to 250 to 500 twice a day or even IV Depakote, but these are anticonvulsants. They work with slightly different mechanism and the majority of cases of hemiballistic movements are dopamine receptor driven. We will check back with her tomorrow. Hopefully, with the raise doses, she will get a little more rest and the movements will begin to calm down. MTDD
[2017-05-19] MEDS: HALOPERIDOL 1 MG TAB PO SCH ×2 (12:42→17:23)
--- NOTE | 2017-05-19 14:38 | Pharmacy Progress Note ---
Pharmacy Glycemic Short Note 2 Date of Service May 19, 2017. Outpatient Anti-diabetic Regimen: * Lantus 27 units SQ qAM, 11 units SQ qPM * Humalog 5 units TID plus sliding scale * A1c = 7.9% 05/15/17 (9.7% on 08/29/16) ASSESSMENT: * Yesterday, Ms Garnett's blood sugars were [phone] mg/dL and her fasting today was 132 mg/dL. The patient received a total of 28 units of insulin with 16 units of basal. * Today's fasting indicates that the patient may require slightly higher than only 16 units of basal. Care though must be taken as the patient did have a low blood sugar when 27 units of basal insulin was utilized. Therefore, continue scale of Lantus but lower the threshold for the dose of Lantus 12 units to be used to greater than 100 mg/dL. * Fasting blood sugars appear well controlled except for lunch... today's lunch blood sugar was 138 mg/dL. Continue scale. * Ms Garnett is an 80yo F with a PMH of CAD s/p CABG and pacer for SSS, diabetic neuropathy, depression, and reasonably well controlled type 2 diabetes ( currently HbA1C is 7.9% with a goal range of 7.6-8.0 % per the Elements of Diabetes Care Scoring Scale) who presents with seizure-like activity.She continues to be hospitalized for chorea-type movements. * Yesterday, the patient received 33 units of insulin (27 units of basal but patient did have excellent oral intake). Blood sugars yesterday ranged from 72- 122 mg/dL. This morning the patient had an episode of hypoglycemia at 61 mg/dL - OJ was given. The patient's blood sugar increased to 131 mg/dL at lunch. * For Lantus, Lantus 8 units given this morning... will utilize scale for this evening either 8 units of 12 units. If blood sugar is less than 140 mg/dL, patient will receive 8 units (representing a 40% decrease in basal which is reasonable for continuing low blood sugars). If blood sugar is 140 mg/dL or greater, patient will receive 12 units (representing a 25 % decrease in basal)- want to provide a scale to prevent rebound hyperglycemia. * Continue Novolog as post-prandial blood sugars controlled. PLAN FOR INPATIENT GLYCEMIC CONTROL: * Basal insulin with LANTUS 8-12 units SQ BID (Lantus 8 units if blood sugar less than 100 mg/dL) * Correctional Insulin with NOVOLOG per scale ACHS or Q6hrs while NPO * Goal Range: Low 110 mg/dL - High 140 mg/dL * Correction Factor: 30 mg/dL/unit * Nutritional / Prandial insulin per carb ratio of 1 unit per 10 grams CHO consumed PLAN FOR DISCHARGE: * Current A1c (7.9%) reflects acceptable glycemic control as an outpatient (in an 81yo patient). * Expect that patient may resume home regimen on discharge. * Please note that the plan above was derived based on current level of insulin resistance and hospital stress. These recommendations are appropriate for inpatient admission only. Plan of care upon discharge will need to be reassessed to avoid potential outpatient hypo/hyperglycemia. Thank you.
--- NOTE | 2017-05-19 15:14 | Progress Note ---
Internal Med Progress Note Date of Service: May 19, 2017. Provider Documentation: Subjective: patient seen and examined at bedside. Patient found to have abnormally high creatinine kinase and has been on IV fluids since this AM. Patient requiring assistance from staff to bring commode to her as she is not steady on her feet due to involuntary left sided movements and connected to IV heplock with fluids Exam General Appearance: no acute pain Head: normocephalic, atraumatic Eyes: normal inspection, EOMI, sclerae normal ENT: hearing grossly normal Neck: supple, trachea midline Respiratory/Chest: lungs clear, normal breath sounds, no respiratory distress, no accessory muscle use Cardiovascular: regular rate, rhythm, normal peripheral pulses Abdomen/GI: normal bowel sounds, non tender, soft Back: no CVA tenderness Extremities/Musculoskelatal: left arm with redness/bruises secondary to trauma Neurologic/Psych: alert, normal mood/affect, oriented x 3, left hemiballismus movements of the left arm and left legs (the arm against flailing along with the leg along with the head with almost torticollis movements to the left at times and some facial grimacing) ASSESSMENT & PLAN: Plan: Left hemiballismus -Patient has had [address] scans on this hospital admission that has not identified particular are of the brain which accounts for the left sided hand and leg flailing movements with some left facial grimacing -as per neurology service 05/18/17 these symptoms may be from vascular causation due to a 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 which may not be detectable with head imaging even with MRI scans -Patient cannot have MRI due to cardiac pacemaker -other workup to date: There was no electrographic seizures or epileptiform discharges on EEG, Lyme negative, RPR negative, thyroid function normal, carotid doppler no significant stenosis -Neurology service have attempted Klonopin and gabapentin but not successful in slowing down these movements but unsuccessful -Neurology service then stopped Klonopin and gabapentin treatment and switched to scheduled Haldol -Neurology service then supplemented Haldol regimen with Topamax 25 mg BID -Neurology service on 05/19/17 increasing Haldol to 1 mg TID and the Topamax to 50 BID -alternatively, Neurology service mentioned in their notes alternative option of Xenazine or tetrabenazine which is not available in the hospital, or available alternatives such as a trial of IV Keppra or IV Depakote Renal function Monitor for rhabdomyolysis while on Topamax Elevated creatinine kinase and elevated leukocytosis may be from stress from the hemiballismus movements vs trauma patient afebrile and less likely that leukocytosis is from infection will give IV fluids to treat both lab abnormalities, observe for fever SICK SINUS SYNDROME S/P PACER Tachyarrhythmia vs pacemaker artifacts/error Cardiology note 05/15/17: pacemaker s/p device interrogation, device is being confused by her movements and actually firing under its rate responsive program. metoprolol which patient was not taking at home recent was restarted Patient has telemetry discontinued Diabetes: is on insulin, monitor for hypoglycemia Hypothyroidism history: continue levothyroxine History of Orthostatic hypotension: hold midodrine for now History of Depression: continue Cymbalta DVT Prophylaxis: heparin SQ PT/OT, physical rehabilitation placement Vital Signs: Date Time Temp Pulse Resp B/P (MAP) Pulse Ox O2 Delivery O2 Flow Rate FiO2 05/19/17 12:15 52 16 128/62 (84) 92 Room Air 05/19/17 08:00 91 Room Air 05/19/17 07:39 37.1 91 18 171/83 (112) 91 Room Air 05/19/17 00:24 Room Air 05/18/17 23:20 37.2 89 20 163/61 (95) 93 Room Air 05/18/17 21:01 67 146/75 (98) 05/18/17 19:55 Room Air 05/18/17 17:22 177/83 (114) 05/18/17 16:00 94 Room Air Lab Results: Results Past 24 Hours Test 05/18/17 15:20 05/18/17 16:15 05/18/17 20:20 05/19/17 07:23 Range/Units Sodium Level 134 136-145 mmol/L Potassium Level 4.4 3.5-5.1 mmol/L Chloride Level 98 98-107 mmol/L Carbon Dioxide Level 28 21-32 mmol/L Anion Gap 8.0 3-11 mmol/L Blood Urea Nitrogen 40 7-18 mg/dl Creatinine 1.17 0.60-1.20 mg/dl Est Creatinine Clear Calc Drug Dose 35.2 ml/min Estimated GFR () 50.6 Estimated GFR (Non- 43.7 BUN/Creatinine Ratio 33.9 10-20 Random Glucose 124 70-99 mg/dl Calcium Level 9.7 8.5-10.1 mg/dl Total Creatine Kinase 2099 26-192 U/L Bedside Glucose 116 120 132 70-90 mg/dl Test 05/19/17 10:00 05/19/17 10:14 05/19/17 11:25 05/19/17 12:32 Range/Units Creatine Kinase MB Ratio 0-3.0 White Blood Count 11.79 4.8-10.8 K/uL Red Blood Count 4.43 4.2-5.4 M/uL Hemoglobin 13.4 12.0-16.0 g/dL Hematocrit 39.1 37-47 % Mean Corpuscular Volume 88.3 80-100 fL Mean Corpuscular Hemoglobin 30.2 25-34 pg Mean Corpuscular Hemoglobin Concent 34.3 32-36 g/dl Platelet Count 217 130-400 K/uL Mean Platelet Volume 11.0 7.4-10.4 fL Neutrophils (%) (Auto) 79.4 % Lymphocytes (%) (Auto) 11.2 % Monocytes (%) (Auto) 8.2 % Eosinophils (%) (Auto) 0.6 % Basophils (%) (Auto) 0.3 % Neutrophils # (Auto) 9.36 1.4-6.5 K/uL Lymphocytes # (Auto) 1.32 1.2-3.4 K/uL Monocytes # (Auto) 0.97 0.11-0.59 K/uL Eosinophils # (Auto) 0.07 0-0.5 K/uL Basophils # (Auto) 0.04 0-0.2 K/uL RDW Standard Deviation 44.8 36.4-46.3 fL RDW Coefficient of Variation 13.8 11.5-14.5 % Immature Granulocyte % (Auto) 0.3 % Immature Granulocyte # (Auto) 0.03 0.00-0.02 K/uL Sodium Level 136 136-145 mmol/L Potassium Level 4.3 3.5-5.1 mmol/L Chloride Level 100 98-107 mmol/L Carbon Dioxide Level 28 21-32 mmol/L Anion Gap 8.0 3-11 mmol/L Blood Urea Nitrogen 39 7-18 mg/dl Creatinine 1.01 0.60-1.20 mg/dl Est Creatinine Clear Calc Drug Dose 40.8 ml/min Estimated GFR () 60.5 Estimated GFR (Non- 52.2 BUN/Creatinine Ratio 38.1 10-20 Random Glucose 118 70-99 mg/dl Calcium Level 9.6 8.5-10.1 mg/dl Total Bilirubin 0.8 0.2-1 mg/dl Aspartate Amino Transf (AST/SGOT) 124 15-37 U/L Alanine Aminotransferase (ALT/SGPT) 66 12-78 U/L Alkaline Phosphatase 102 45-117 U/L Creatine Kinase MB 27.9 0.5-3.6 ng/ml Total Protein 7.1 6.4-8.2 gm/dl Albumin 3.2 3.4-5.0 gm/dl Globulin 3.9 2.5-4.0 gm/dl Albumin/Globulin Ratio 0.8 0.9-2 Bedside Glucose 138 70-90 mg/dl Total Creatine Kinase 2264 26-192 U/L
[2017-05-19] MEDS: TOPIRAMATE 50 MG TAB PO SCH (20:49)
[2017-05-20] MEDS: ACETAMINOPHEN 325 MG TAB PO PRN ×2 (02:44→13:10)
[2017-05-20] MEDS: SODIUM CHLORIDE 0.9% 1000ML 1,000 ML IV SCH ×2 (02:47→12:38)
[2017-05-20] MEDS: LEVOTHYROXINE 88 MCG TAB PO SCH (06:30)
[2017-05-20] MEDS: INSULIN ASPART 100 UNITS/ML 3 ML PEN SC SCH ×4 (06:30→21:00)
[2017-05-20 06:56] LABS: BASO % 0.3 %; BASO ABS # 0.03 K/uL (0-0.2); EOS % 1.3 %; EOS ABS # 0.15 K/uL (0-0.5); HEMOGLOBIN 12.8 g/dL (12.0-16.0); IG# 0.04 K/uL (0.00-0.02); LYMPH % 11.7 %; LYMPH ABS # 1.35 K/uL (1.2-3.4); MEAN CELL VOLUME 89.8 fL (80-100); MEAN CORPUSCULAR HEMOGLOBIN 30.3 pg (25-34); MEAN CORPUSCULAR HGB CONC 33.7 g/dl (32-36); MEAN PLATELET VOLUME 11.1 fL (7.4-10.4); MONO % 9.5 %; NEUT % 76.9 %; NEUT ABS # 8.85 K/uL (1.4-6.5); PLATELET COUNT 231 K/uL (130-400); RED CELL DISTRIBUTION WIDTH CV 14.1 % (11.5-14.5); RED CELL DISTRIBUTION WIDTH SD 45.7 fL (36.4-46.3); WHITE BLOOD COUNT 11.52 K/uL (4.8-10.8)
[2017-05-20 07:15] VITALS: BP 172/66; PULSE 72; TEMP 37.3; O2SAT 92
[2017-05-20 07:36] LABS: CREATININE 0.99 mg/dl (0.60-1.20); POTASSIUM 4.2 mmol/L (3.5-5.1)
[2017-05-20 07:49] LABS: TOTAL PROTEIN 6.9 gm/dl (6.4-8.2)
[2017-05-20] MEDS: TOPIRAMATE 50 MG TAB PO SCH ×2 (07:49→21:09)
[2017-05-20] MEDS: HALOPERIDOL 1 MG TAB PO SCH ×3 (07:49→16:52)
[2017-05-20] MEDS: CEROVITE ADV FORMULA TAB PO SCH ×2 (07:49→21:09)
[2017-05-20] MEDS: DULOXETINE HCL 60 MG CAP PO SCH (07:49)
[2017-05-20] MEDS: ASPIRIN 81 MG CHEW PO SCH (07:49)
[2017-05-20] MEDS: METOPROLOL TARTRATE 25 MG TAB PO SCH ×2 (07:49→21:08)
[2017-05-20] MEDS: CHOLECALCIFEROL 1000 INTER.UNIT TAB PO SCH (07:49)
[2017-05-20 08:56] VITALS: O2SAT 92
[2017-05-20] MEDS ORDERED: INSULIN GLARGINE SOLOSTAR 100 UNITS/ML 3 ML PEN SC SCH ×2 (09:00→21:30)
[2017-05-20] MEDS: CLOPIDOGREL BISULFATE 75 MG TAB PO SCH (09:08)
[2017-05-20] MEDS: HEPARIN SOD 5000 UNIT/0.5 ML CARP SQ SCH (09:14)
--- NOTE | 2017-05-20 10:39 | Pharmacy Progress Note ---
Pharmacy Glycemic Short Note 2 Date of Service May 20, 2017. Outpatient Anti-diabetic Regimen: * Lantus 27 units SQ qAM, 11 units SQ qPM * Humalog 5 units TID plus sliding scale * A1c = 7.9% 05/15/17 (9.7% on 08/29/16) ASSESSMENT: * Yesterday, Ms Garnett's blood sugars were [phone] mg/dL and her fasting today was 98 mg/dL. The patient received a total of 27 units of insulin with 20 units of basal. * Today's fasting indicates that the patient may require slightly LESS than 20 units of basal but more than 16 units. Schedule 9 units twice daily (total daily dose of 18 units). * For Novolog, the patient's blood sugars appeared well controlled except there was a decrease from lunch to dinner. The patient received only 7 units of Novolog yesterday...since lunch's blood sugar increased significantly (most likely patient had some breakfast but was not covered), did not alter scale. * Ms Garnett is an 80yo F with a PMH of CAD s/p CABG and pacer for SSS, diabetic neuropathy, depression, and reasonably well controlled type 2 diabetes ( currently HbA1C is 7.9% with a goal range of 7.6-8.0 % per the Elements of Diabetes Care Scoring Scale) who presents with seizure-like activity.She continues to be hospitalized for chorea-type movements. * Yesterday, Ms Garnett's blood sugars were [phone] mg/dL and her fasting today was 132 mg/dL. The patient received a total of 28 units of insulin with 16 units of basal. * Today's fasting indicates that the patient may require slightly higher than only 16 units of basal. Care though must be taken as the patient did have a low blood sugar when 27 units of basal insulin was utilized. Therefore, continue scale of Lantus but lower the threshold for the dose of Lantus 12 units to be used to greater than 100 mg/dL. * Fasting blood sugars appear well controlled except for lunch... today's lunch blood sugar was 138 mg/dL. Continue scale. PLAN FOR INPATIENT GLYCEMIC CONTROL: * Basal insulin with LANTUS 9 units SQ BID * Correctional Insulin with NOVOLOG per scale ACHS or Q6hrs while NPO * Goal Range: Low 110 mg/dL - High 140 mg/dL * Correction Factor: 30 mg/dL/unit * Nutritional / Prandial insulin per carb ratio of 1 unit per 10 grams CHO consumed PLAN FOR DISCHARGE: * Current A1c (7.9%) reflects acceptable glycemic control as an outpatient (in an 81yo patient). * Expect that patient may resume home regimen on discharge. Thank you.
[2017-05-20] MEDS ORDERED: CEFTRIAXONE SOD INJ 1 GM in DEXTROSE 5% ADD-VANTAGE 50ML 50 ML IV ONE (13:30)
--- NOTE | 2017-05-20 15:00 | Neurology Progress Notes ---
Neurology Progress Note Date of Service May 20, 2017. Rosaline Vo is a 81 year old female who started having left sided movement which she is unable to control. She has a PMH DM, CAD with bipass x 4 2001, pacemaker , orthostatic hypotension,dementia who states she started having issues with movement yesterday. she states she has always had movement at night with her feet but the arm was never effected. Her daughter states they gave her ativan in the ED which put her to sleep and the only movement at that time was her left foot. She denies any new medications but does say she has not felt well lately and does get alot of UTI's. She states her gait is off and she feel unsteady. denies CP, SOB, abdominal pain, numbness tingling, vision changes, N, V, bowel or bladder symptoms. She is lying in bed sleeping, daughter bedside and states she thought there was some help the initial day but now she does not feel the Haldol is helping. she is still when she sleeping but as soon as she wakes she is having issues. She finds her very confused and not clear of thinking. denies CP, SOB, abdominal pain, one sided weakness, numbness tingling, slurred speech. Objective Date Time Temp Pulse Resp B/P (MAP) Pulse Ox O2 Delivery O2 Flow Rate FiO2 05/20/17 08:56 92 Room Air 05/20/17 07:15 37.3 72 20 172/66 (101) 92 05/19/17 23:58 Room Air 05/19/17 23:39 37.0 73 18 132/57 (82) 90 Room Air 05/19/17 20:47 72 166/77 (106) 05/19/17 20:06 Room Air 05/19/17 16:00 91 Room Air Last 24 Hours Test 05/19/17 16:40 05/19/17 20:58 05/20/17 06:36 05/20/17 07:31 Bedside Glucose 85 mg/dl 117 mg/dl 98 mg/dl White Blood Count 11.52 K/uL Red Blood Count 4.23 M/uL Hemoglobin 12.8 g/dL Hematocrit 38.0 % Mean Corpuscular Volume 89.8 fL Mean Corpuscular Hemoglobin 30.3 pg Mean Corpuscular Hemoglobin Concent 33.7 g/dl Platelet Count 231 K/uL Mean Platelet Volume 11.1 fL Neutrophils (%) (Auto) 76.9 % Lymphocytes (%) (Auto) 11.7 % Monocytes (%) (Auto) 9.5 % Eosinophils (%) (Auto) 1.3 % Basophils (%) (Auto) 0.3 % Neutrophils # (Auto) 8.85 K/uL Lymphocytes # (Auto) 1.35 K/uL Monocytes # (Auto) 1.10 K/uL Eosinophils # (Auto) 0.15 K/uL Basophils # (Auto) 0.03 K/uL RDW Standard Deviation 45.7 fL RDW Coefficient of Variation 14.1 % Immature Granulocyte % (Auto) 0.3 % Immature Granulocyte # (Auto) 0.04 K/uL Sodium Level 137 mmol/L Potassium Level 4.2 mmol/L Chloride Level 103 mmol/L Carbon Dioxide Level 21 mmol/L Anion Gap 13.0 mmol/L Blood Urea Nitrogen 37 mg/dl Creatinine 0.99 mg/dl Est Creatinine Clear Calc Drug Dose 41.6 ml/min Estimated GFR () 61.9 Estimated GFR (Non- 53.4 BUN/Creatinine Ratio 37.4 Random Glucose 96 mg/dl Calcium Level 9.0 mg/dl Total Bilirubin 0.8 mg/dl Aspartate Amino Transf (AST/SGOT) 113 U/L Alanine Aminotransferase (ALT/SGPT) 70 U/L Alkaline Phosphatase 99 U/L Total Creatine Kinase 1691 U/L Total Protein 6.9 gm/dl Albumin 3.0 gm/dl Globulin 3.9 gm/dl Albumin/Globulin Ratio 0.8 Test 05/20/17 11:39 Bedside Glucose 200 mg/dl Imaging: no new imaging Exam: Gen: lying calmly at sleep lungs CTA, CV RRR chorea movement of left side arm leg Current Inpatient Medications Medications (Trade) Dose Ordered Sig/Krish Route Start Time Stop Time Status Last Admin Dose Admin Acetaminophen (Tylenol Tab) 650 mg Q4H PRN PO 05/14/17 14:15 06/13/17 14:14 05/20/17 13:10 650 MG Magnesium Hydroxide (Milk Of Magnesia Susp) 30 ml Q12H PRN PO 05/14/17 14:15 06/13/17 14:14 Ondansetron HCl (Zofran Inj) 4 mg Q6H PRN IV 05/14/17 14:15 06/13/17 14:14 Nitroglycerin (Nitrostat Tab) 0.4 mg UD PRN SL 05/14/17 14:15 06/13/17 14:14 Heparin Sodium (Porcine) (Heparin Sq 5000 Unit/0.5ml) 5,000 unit Q12 SQ 05/14/17 21:00 06/13/17 20:59 05/20/17 09:14 5,000 UNIT Insulin Aspart (novoLOG ASPART) SLIDING SCALE If C... ACHS SC 05/14/17 16:30 06/13/17 16:29 05/20/17 12:38 3 UNITS Glucose (Glucose 40% Gel) 15-30 GRAMS 15 GRAMS... UD PRN PO 05/14/17 14:30 06/13/17 14:29 05/17/17 16:39 15 GM Glucose (Glucose Chew Tab) 4-8 Tablets 4 Tabl... UD PRN PO 05/14/17 14:30 06/13/17 14:29 Dextrose (Dextrose 50% 50ML Syringe) 25-50ML OF 50% DW IV FOR... UD PRN IV 05/14/17 14:30 06/13/17 14:29 Glucagon (Glucagon Inj) 1 mg UD PRN SQ 05/14/17 14:30 06/13/17 14:29 Miscellaneous Information (Consult Glycemic Management Pharmacy) 1 ea UD PRN N/A 05/14/17 15:00 06/13/17 14:59 Aspirin (Aspirin Chew) 81 mg DAILY PO 05/15/17 09:00 06/14/17 08:59 05/20/17 07:49 81 MG Duloxetine HCl (Cymbalta Cap) 60 mg DAILY PO 05/15/17 09:00 06/14/17 08:59 05/20/17 07:49 60 MG Levothyroxine Sodium (Synthroid Tab) 88 mcg DAILYBB PO 05/15/17 06:30 06/14/17 06:29 05/20/17 06:30 88 MCG Midodrine (Proamatine Tab) 10 mg TID@0600,1200,1800 PO 05/14/17 18:00 06/13/17 17:59 Future Hold 05/19/17 12:42 10 MG Cholecalciferol (Vitamin D Tab) 1,000 inter.unit DAILY PO 05/15/17 09:00 06/14/17 08:59 05/20/17 07:49 1,000 INTER.UNIT Multivitamins/ Minerals (Multivitamin W/ Minerals Tab) 1 tab BID PO 05/14/17 21:00 06/13/17 20:59 05/20/17 07:49 1 TAB Metoprolol Tartrate (Lopressor Tab) 25 mg BID PO 05/15/17 07:00 06/14/17 06:59 05/20/17 07:49 25 MG Metoprolol Tartrate (Lopressor Iv) 5 mg Q6 PRN IV 05/14/17 18:45 06/13/17 18:44 05/14/17 19:59 5 MG Clopidogrel Bisulfate (plAVix TAB) 75 mg QAM PO 05/14/17 18:45 06/13/17 18:44 05/20/17 09:08 75 MG Sodium Chloride 1,000 ml @ 100 mls/hr Q10H IV 05/19/17 07:15 06/18/17 07:14 05/20/17 12:38 100 MLS/HR Haloperidol (Haldol Tab) 1 mg PC PO 05/19/17 13:00 06/18/17 12:59 05/20/17 07:49 1 MG Topiramate (Topamax Tab) 50 mg BID PO 05/19/17 21:00 06/18/17 20:59 05/20/17 07:49 50 MG Insulin Glargine (Lantus Solostar Pen) 9 units BID SC 05/20/17 09:00 06/19/17 08:59 05/20/17 09:14 9 UNITS Ceftriaxone Sodium 1 gm/ Dextrose 50 ml @ 100 mls/hr Q24H IV 05/21/17 14:00 05/30/17 13:59 Impression 81 year old female with new onset left sided chorea like movement Plan 1. CT head negative for acute findings would be helpful to evaluate for stroke with MRI but patient had pacemaker 2. she appear dry she does have 100 ml NS IV currently 3. EEG - read as normal 4. pacemaker interrogated no issues 5. admission for further work up 6. chorea type movements can be caused by hyperglycemia, hyperthyroid, stroke, lyme. will need further evaluation this is likely stroke. 7. stop klonopin .25mg after tomorrows 1 dose in am and stop gabapentin 100 mg TID done 8. repeat CT head as needed 9. carotid doppler no significant stenosis 10. TTE- ASD not assessed 11. cardiology was consulted and her pacemaker was readjusted for movements and restarted metoprolol 12. start haldol .25mg TID tomorrow am,- currently dosing is TID with meals, will increase as needed. she has been refusing some doses so it is difficult to determine if she is being helped by the medication 13. PT/OT for discharge needs and will likely need some rehab prior to returning to her personal care situation 14. continue aspirin 81 mg and plavix 75 mg added, continue for 3 months and then plavix for a lifetime will need follow up in 2-3 weeks after discharge from rehab with Dr Tracie Esposito or Tracie Parks PAC, neurology I have seen and discussed above patient with Dr Jose Miguel De Los Santos, neurology Again the response or lack thereof the haldol is unclear due to patient refusal of doses will try again to get the 1mg haldol tid with meals bakc on board with the topamax and if she continues to refuse may go to iv dosing as it is imperative that we establish whether the dopamine blockad approach will be effective and if not then will have to revert to the anticonvujlsant ionic channel blockade approach and push topamax, consider keppra and consider depakote disposition is a major issue now as she cannot return to extended or personal care and remains acutely ill with low grade rhabdo and renal failure as sidebar issues caused by the hemiballisms Will follpw up tomorrow Jose Miguel De Los Santos MD
[2017-05-20 15:04] VITALS: BP 130/52; PULSE 66; TEMP 36.7; O2SAT 91
[2017-05-20 16:00] VITALS: O2SAT 91
--- NOTE | 2017-05-20 18:45 | Progress Note ---
Internal Med Progress Note Date of Service: May 20, 2017. Provider Documentation: Subjective: patient seen and examined at bedside with her daughter. Major issues discussed is the medication adjustments to try to control the left hemiballismus movements. Patient's daughter is concerned that the haldol may be causing more confusion in the patient. Patient also on IV fluids due to side effects of hemiballismus such as elevated creatinase and leukocytosis. Also treating leukocytosis with antibiotic starting today due to recent skin injuries from trauma and abrasion from arm and legs hitting objects Exam General Appearance: no acute pain Head: normocephalic, atraumatic Eyes: normal inspection, EOMI, sclerae normal ENT: hearing grossly normal Neck: supple, trachea midline Respiratory/Chest: lungs clear, normal breath sounds, no respiratory distress, no accessory muscle use Cardiovascular: regular rate, rhythm, normal peripheral pulses Abdomen/GI: normal bowel sounds, non tender, soft Back: no CVA tenderness Extremities/Musculoskelatal: left arm with redness/bruises secondary to trauma Neurologic/Psych: alert, normal mood/affect, oriented x 3, left hemiballismus movements of the left arm and left legs (the arm against flailing along with the leg along with the head with almost torticollis movements to the left at times and some facial grimacing) ASSESSMENT & PLAN: Plan: Left hemiballismus -Patient has had [address] scans on this hospital admission that has not identified particular are of the brain which accounts for the left sided hand and leg flailing movements with some left facial grimacing -as per neurology service 05/18/17 these symptoms may be from vascular causation due to a 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 which may not be detectable with head imaging even with MRI scans -Patient cannot have MRI due to cardiac pacemaker -other workup to date: There was no electrographic seizures or epileptiform discharges on EEG, Lyme negative, RPR negative, thyroid function normal, carotid doppler no significant stenosis -Neurology service have attempted Klonopin and gabapentin but not successful in slowing down these movements but unsuccessful -Neurology service then stopped Klonopin and gabapentin treatment and switched to scheduled oral Haldol -Neurology service then supplemented oral Haldol regimen with Topamax 25 mg BID -Neurology service on 05/19/17 increasing oral Haldol to 1 mg TID and the Topamax to 50 BID -Neurology service to continue oral Haldol with Topomax; monitor for confusion as this is patient's daughter's concern with the haldol therapy -alternatively, Neurology service mentioned in their notes alternative option of Xenazine or tetrabenazine which is not available in the hospital, or available alternatives such as a trial of IV Keppra or IV Depakote Renal function Monitor for rhabdomyolysis while on Topamax Elevated creatinine kinase and elevated leukocytosis may be from stress from the hemiballismus movements vs trauma patient afebrile and less likely that leukocytosis is from infection but patient has skin abrasions from hitting her arms and legs on hospital surroundings on IV fluids to treat both lab abnormalities, blood cultures drawn on 05/20/17, ceftriaxone 1 gram IV to empirically treat for cellulitis started on 05/20/17 as daily order, wound care consult SICK SINUS SYNDROME S/P PACER Tachyarrhythmia vs pacemaker artifacts/error Cardiology note 05/15/17: pacemaker s/p device interrogation, device is being confused by her movements and actually firing under its rate responsive program. metoprolol which patient was not taking at home recent was restarted Patient has telemetry discontinued Diabetes: is on insulin, monitor for hypoglycemia Hypothyroidism history: continue levothyroxine History of Orthostatic hypotension: hold midodrine for now History of Depression: continue Cymbalta DVT Prophylaxis: lovenox 40 mg daily PT/OT, physical rehabilitation placement Patient's daughter [phone] is concerned about haldol therapy for the hemiballismus movements causing confusion Vital Signs: Date Time Temp Pulse Resp B/P (MAP) Pulse Ox O2 Delivery O2 Flow Rate FiO2 05/20/17 15:04 36.7 66 16 130/52 (78) 91 Room Air 05/20/17 08:56 92 Room Air 05/20/17 07:15 37.3 72 20 172/66 (101) 92 05/19/17 23:58 Room Air 05/19/17 23:39 37.0 73 18 132/57 (82) 90 Room Air 05/19/17 20:47 72 166/77 (106) 05/19/17 20:06 Room Air Lab Results: Results Past 24 Hours Test 05/19/17 20:58 05/20/17 06:36 05/20/17 07:31 05/20/17 11:39 Range/Units Bedside Glucose 117 98 200 70-90 mg/dl White Blood Count 11.52 4.8-10.8 K/uL Red Blood Count 4.23 4.2-5.4 M/uL Hemoglobin 12.8 12.0-16.0 g/dL Hematocrit 38.0 37-47 % Mean Corpuscular Volume 89.8 80-100 fL Mean Corpuscular Hemoglobin 30.3 25-34 pg Mean Corpuscular Hemoglobin Concent 33.7 32-36 g/dl Platelet Count 231 130-400 K/uL Mean Platelet Volume 11.1 7.4-10.4 fL Neutrophils (%) (Auto) 76.9 % Lymphocytes (%) (Auto) 11.7 % Monocytes (%) (Auto) 9.5 % Eosinophils (%) (Auto) 1.3 % Basophils (%) (Auto) 0.3 % Neutrophils # (Auto) 8.85 1.4-6.5 K/uL Lymphocytes # (Auto) 1.35 1.2-3.4 K/uL Monocytes # (Auto) 1.10 0.11-0.59 K/uL Eosinophils # (Auto) 0.15 0-0.5 K/uL Basophils # (Auto) 0.03 0-0.2 K/uL RDW Standard Deviation 45.7 36.4-46.3 fL RDW Coefficient of Variation 14.1 11.5-14.5 % Immature Granulocyte % (Auto) 0.3 % Immature Granulocyte # (Auto) 0.04 0.00-0.02 K/uL Sodium Level 137 136-145 mmol/L Potassium Level 4.2 3.5-5.1 mmol/L Chloride Level 103 98-107 mmol/L Carbon Dioxide Level 21 21-32 mmol/L Anion Gap 13.0 3-11 mmol/L Blood Urea Nitrogen 37 7-18 mg/dl Creatinine 0.99 0.60-1.20 mg/dl Est Creatinine Clear Calc Drug Dose 41.6 ml/min Estimated GFR () 61.9 Estimated GFR (Non- 53.4 BUN/Creatinine Ratio 37.4 10-20 Random Glucose 96 70-99 mg/dl Calcium Level 9.0 8.5-10.1 mg/dl Total Bilirubin 0.8 0.2-1 mg/dl Aspartate Amino Transf (AST/SGOT) 113 15-37 U/L Alanine Aminotransferase (ALT/SGPT) 70 12-78 U/L Alkaline Phosphatase 99 45-117 U/L Total Creatine Kinase 1691 26-192 U/L Total Protein 6.9 6.4-8.2 gm/dl Albumin 3.0 3.4-5.0 gm/dl Globulin 3.9 2.5-4.0 gm/dl Albumin/Globulin Ratio 0.8 0.9-2 Test 05/20/17 15:22 05/20/17 16:08 Range/Units Bedside Glucose 71 68 70-90 mg/dl Microbiology Results 05/20/17 Blood Culture, Received Pending 05/20/17 Blood Culture, Received Pending
[2017-05-20] MEDS ORDERED: HALOPERIDOL 0.5 MG TAB PO SCH (21:00)
[2017-05-20 21:12] VITALS: BP 129/65; PULSE 91
[2017-05-20] MEDS ORDERED: INSULIN GLARGINE SOLOSTAR 100 UNITS/ML 3 ML PEN SC ONE (22:30)
[2017-05-20 23:33] VITALS: BP 133/54; PULSE 90; TEMP 37.3; O2SAT 97
[2017-05-21] VITALS (8 sets, daily range): BP systolic 121–148; BP diastolic 54–79; PULSE 68–90; TEMP 36.7–36.9; O2SAT 91–96
[2017-05-21] MEDS: SODIUM CHLORIDE 0.9% 1000ML 1,000 ML IV SCH ×4 (01:48→23:45)
[2017-05-21] MEDS: HALOPERIDOL 1 MG TAB PO SCH ×2 (06:01→13:40)
[2017-05-21] MEDS: LEVOTHYROXINE 88 MCG TAB PO SCH (06:01)
[2017-05-21] MEDS ORDERED: ALUMINUM/MAGNESIUM/SIMETH (MAALOX MAX) 30 ML UDC PO STA (07:46)
[2017-05-21] MEDS: NITROGLYCERIN 0.4 MG SL PER TAB CHARGE SL PRN (07:53)
[2017-05-21] MEDS ORDERED: MoRPHine SULFATE 2 MG/ML CARP IV PRN (08:00)
[2017-05-21] MEDS ORDERED: ALUMINUM/MAGNESIUM/SIMETH (MAALOX MAX) 30 ML UDC PO PRN ×2 (08:00→08:15)
[2017-05-21] MEDS: TOPIRAMATE 50 MG TAB PO SCH ×2 (09:14→20:23)
[2017-05-21] MEDS: METOPROLOL TARTRATE 25 MG TAB PO SCH ×2 (09:14→20:23)
[2017-05-21] MEDS: CHOLECALCIFEROL 1000 INTER.UNIT TAB PO SCH (09:14)
[2017-05-21] MEDS: CLOPIDOGREL BISULFATE 75 MG TAB PO SCH (09:14)
[2017-05-21] MEDS: ASPIRIN 81 MG CHEW PO SCH (09:14)
[2017-05-21] MEDS: CEROVITE ADV FORMULA TAB PO SCH ×2 (09:15→20:23)
[2017-05-21] MEDS: DULOXETINE HCL 60 MG CAP PO SCH (09:15)
[2017-05-21] MEDS: ENOXAPARIN 40 MG/0.4 ML SYR SQ SCH (09:16)
[2017-05-21] MEDS: INSULIN ASPART 100 UNITS/ML 3 ML PEN SC SCH ×4 (09:17→20:58)
[2017-05-21] MEDS: INSULIN GLARGINE SOLOSTAR 100 UNITS/ML 3 ML PEN SC SCH ×2 (09:19→21:02)
[2017-05-21 12:41] LABS: CALCIUM 8.7 mg/dl (8.5-10.1); CREATININE 1.05 mg/dl (0.60-1.20)
[2017-05-21 12:45] LABS: BASO % 0.3 %; BASO ABS # 0.03 K/uL (0-0.2); EOS % 0.5 %; EOS ABS # 0.06 K/uL (0-0.5); HEMATOCRIT 35.7 % (37-47); HEMOGLOBIN 11.8 g/dL (12.0-16.0); IG# 0.03 K/uL (0.00-0.02); LYMPH % 8.6 %; MEAN CELL VOLUME 91.1 fL (80-100); MEAN CORPUSCULAR HEMOGLOBIN 30.1 pg (25-34); MEAN CORPUSCULAR HGB CONC 33.1 g/dl (32-36); MEAN PLATELET VOLUME 11.5 fL (7.4-10.4); MONO % 9.6 %; MONO ABS # 1.12 K/uL (0.11-0.59); NEUT % 80.7 %; NEUT ABS # 9.41 K/uL (1.4-6.5); PLATELET COUNT 245 K/uL (130-400); RED CELL DISTRIBUTION WIDTH CV 14.5 % (11.5-14.5); RED CELL DISTRIBUTION WIDTH SD 47.2 fL (36.4-46.3); WHITE BLOOD COUNT 11.65 K/uL (4.8-10.8)
[2017-05-21 13:03] LABS: CKMB 29.5 ng/ml (0.5-3.6)
[2017-05-21] MEDS: CEFTRIAXONE SOD INJ 1 GM in DEXTROSE 5% ADD-VANTAGE 50ML 50 ML IV SCH (13:43)
--- NOTE | 2017-05-21 14:15 | Neurology Progress Notes ---
Neurology Progress Note Date of Service May 21, 2017. Rosaline Vo is a 81 year old female who started having left sided movement which she is unable to control. She has a PMH DM, CAD with bipass x 4 2001, pacemaker , orthostatic hypotension,dementia who states she started having issues with movement yesterday. she states she has always had movement at night with her feet but the arm was never effected. Her daughter states they gave her ativan in the ED which put her to sleep and the only movement at that time was her left foot. She denies any new medications but does say she has not felt well lately and does get alot of UTI's. She states her gait is off and she feel unsteady. denies CP, SOB, abdominal pain, numbness tingling, vision changes, N, V, bowel or bladder symptoms. She is lying in bed sleeping OT and PT have tried working with her and nursing said she was OOB to chair this am but someone had to be there with her because she has a hard time staying in chair. She is more calm with sleeping and she is still refusing the haldol periodically. she is very restless and lethargic. she had CP this am and was given ntg. Her troponin was slightly elevated. She refused to eat her lunch and nursing states she is having some difficulty with swallowing that may be contributory to her alertness Objective Date Time Temp Pulse Resp B/P (MAP) Pulse Ox O2 Delivery O2 Flow Rate FiO2 05/21/17 12:10 36.7 90 20 148/78 (101) 92 Room Air 05/21/17 08:00 84 18 121/69 (86) 05/21/17 08:00 95 Room Air 05/21/17 07:43 86 18 134/79 (97) 95 Room Air 05/21/17 07:30 96 Room Air 05/21/17 07:30 36.7 80 20 128/59 (82) 96 Room Air 05/21/17 00:00 Room Air 05/20/17 23:33 37.3 90 20 133/54 (80) 97 Room Air 05/20/17 21:12 91 129/65 (86) 05/20/17 16:00 91 Room Air 05/20/17 15:04 36.7 66 16 130/52 (78) 91 Room Air Last 24 Hours Test 05/20/17 15:22 2/26/18 16:08 05/20/17 20:10 05/21/17 08:13 Bedside Glucose 71 mg/dl 68 mg/dl 118 mg/dl Troponin I 0.554 ng/ml Test 05/21/17 08:14 05/21/17 11:10 05/21/17 11:57 Bedside Glucose 139 mg/dl 170 mg/dl White Blood Count 11.65 K/uL Red Blood Count 3.92 M/uL Hemoglobin 11.8 g/dL Hematocrit 35.7 % Mean Corpuscular Volume 91.1 fL Mean Corpuscular Hemoglobin 30.1 pg Mean Corpuscular Hemoglobin Concent 33.1 g/dl Platelet Count 245 K/uL Mean Platelet Volume 11.5 fL Neutrophils (%) (Auto) 80.7 % Lymphocytes (%) (Auto) 8.6 % Monocytes (%) (Auto) 9.6 % Eosinophils (%) (Auto) 0.5 % Basophils (%) (Auto) 0.3 % Neutrophils # (Auto) 9.41 K/uL Lymphocytes # (Auto) 1.00 K/uL Monocytes # (Auto) 1.12 K/uL Eosinophils # (Auto) 0.06 K/uL Basophils # (Auto) 0.03 K/uL RDW Standard Deviation 47.2 fL RDW Coefficient of Variation 14.5 % Immature Granulocyte % (Auto) 0.3 % Immature Granulocyte # (Auto) 0.03 K/uL Sodium Level 139 mmol/L Potassium Level 4.0 mmol/L Chloride Level 106 mmol/L Carbon Dioxide Level 24 mmol/L Anion Gap 9.0 mmol/L Blood Urea Nitrogen 35 mg/dl Creatinine 1.05 mg/dl Est Creatinine Clear Calc Drug Dose 39.2 ml/min Estimated GFR () 57.7 Estimated GFR (Non- 49.8 BUN/Creatinine Ratio 33.0 Random Glucose 121 mg/dl Calcium Level 8.7 mg/dl Total Creatine Kinase 1848 U/L Creatine Kinase MB 29.5 ng/ml Creatine Kinase MB Ratio 1.6 Troponin I 0.448 ng/ml Imaging: no new imaging Exam: Gen: alert very restless, move chorea on left side lungs CTA CV RRR follow commands but is very tired and doses between questions and commands Current Inpatient Medications Medications (Trade) Dose Ordered Sig/Krish Route Start Time Stop Time Status Last Admin Dose Admin Acetaminophen (Tylenol Tab) 650 mg Q4H PRN PO 05/14/17 14:15 06/13/17 14:14 05/20/17 13:10 650 MG Magnesium Hydroxide (Milk Of Magnesia Susp) 30 ml Q12H PRN PO 05/14/17 14:15 06/13/17 14:14 Ondansetron HCl (Zofran Inj) 4 mg Q6H PRN IV 05/14/17 14:15 06/13/17 14:14 Nitroglycerin (Nitrostat Tab) 0.4 mg UD PRN SL 05/14/17 14:15 06/13/17 14:14 05/21/17 07:53 0.4 MG Insulin Aspart (novoLOG ASPART) SLIDING SCALE If C... ACHS SC 05/14/17 16:30 06/13/17 16:29 05/21/17 13:40 4 UNITS Glucose (Glucose 40% Gel) 15-30 GRAMS 15 GRAMS... UD PRN PO 05/14/17 14:30 06/13/17 14:29 05/17/17 16:39 15 GM Glucose (Glucose Chew Tab) 4-8 Tablets 4 Tabl... UD PRN PO 05/14/17 14:30 06/13/17 14:29 Dextrose (Dextrose 50% 50ML Syringe) 25-50ML OF 50% DW IV FOR... UD PRN IV 05/14/17 14:30 06/13/17 14:29 Glucagon (Glucagon Inj) 1 mg UD PRN SQ 05/14/17 14:30 06/13/17 14:29 Miscellaneous Information (Consult Glycemic Management Pharmacy) 1 ea UD PRN N/A 05/14/17 15:00 06/13/17 14:59 Aspirin (Aspirin Chew) 81 mg DAILY PO 05/15/17 09:00 06/14/17 08:59 05/21/17 09:14 81 MG Duloxetine HCl (Cymbalta Cap) 60 mg DAILY PO 05/15/17 09:00 06/14/17 08:59 05/21/17 09:15 60 MG Levothyroxine Sodium (Synthroid Tab) 88 mcg DAILYBB PO 05/15/17 06:30 06/14/17 06:29 05/21/17 06:01 88 MCG Midodrine (Proamatine Tab) 10 mg TID@0600,1200,1800 PO 05/14/17 18:00 06/13/17 17:59 Future Hold 05/19/17 12:42 10 MG Cholecalciferol (Vitamin D Tab) 1,000 inter.unit DAILY PO 05/15/17 09:00 06/14/17 08:59 05/21/17 09:14 1,000 INTER.UNIT Multivitamins/ Minerals (Multivitamin W/ Minerals Tab) 1 tab BID PO 05/14/17 21:00 06/13/17 20:59 05/21/17 09:15 1 TAB Metoprolol Tartrate (Lopressor Tab) 25 mg BID PO 05/15/17 07:00 06/14/17 06:59 05/21/17 09:14 25 MG Metoprolol Tartrate (Lopressor Iv) 5 mg Q6 PRN IV 05/14/17 18:45 06/13/17 18:44 05/14/17 19:59 5 MG Clopidogrel Bisulfate (plAVix TAB) 75 mg QAM PO 05/14/17 18:45 06/13/17 18:44 05/21/17 09:14 75 MG Sodium Chloride 1,000 ml @ 100 mls/hr Q10H IV 05/19/17 07:15 06/18/17 07:14 05/21/17 09:20 100 MLS/HR Topiramate (Topamax Tab) 50 mg BID PO 05/19/17 21:00 06/18/17 20:59 05/21/17 09:14 50 MG Ceftriaxone Sodium 1 gm/ Dextrose 50 ml @ 100 mls/hr Q24H IV 05/21/17 14:00 05/30/17 13:59 05/21/17 13:43 100 MLS/HR Haloperidol (Haldol Tab) 1 mg AC PO 05/20/17 16:30 06/19/17 16:29 05/21/17 13:40 1 MG Enoxaparin Sodium (Lovenox Inj) 40 mg QAM SQ 05/21/17 09:00 06/20/17 08:59 05/21/17 09:16 40 MG Morphine Sulfate (MoRPHine SULFATE INJ) 2 mg Q3HWA PRN IV 05/21/17 08:00 06/04/17 07:59 Al Hydrox/Mg Hydrox/Simethicone (Maalox Max Susp) 30 ml Q6H PRN PO 05/21/17 08:15 06/20/17 08:14 Insulin Glargine (Lantus Solostar Pen) 7 units BID SC 05/21/17 09:00 06/20/17 08:59 05/21/17 09:19 7 UNITS Impression 81 year old female with new onset left sided chorea like movement Plan 1. CT head negative for acute findings would be helpful to evaluate for stroke with MRI but patient had pacemaker 2. she appear dry she does have 100 ml NS IV currently 3. EEG - read as normal 4. pacemaker interrogated no issues 5. admission for further work up 6. chorea type movements can be caused by hyperglycemia, hyperthyroid, stroke, lyme. will need further evaluation this is likely stroke. 7. stop klonopin .25mg after tomorrows 1 dose in am and stop gabapentin 100 mg TID done 8. repeat CT head as needed 9. carotid doppler no significant stenosis 10. TTE- ASD not assessed 11. cardiology was consulted and her pacemaker was readjusted for movements and restarted metoprolol 12. start haldol 1 mg currently dosing is TID with meals orally, she has been refusing some doses so it is difficult to determine if she is being helped by the medication. Will switch to IV Haldol 1 mg for now to see if she improves. alternative would be to push topamax, consider keppra and consider depakote disposition is a major issue now as she cannot return to extended or personal care and remains acutely ill with low grade rhabdo and renal failure 13. PT/OT for discharge needs and will likely need some rehab prior to returning to her personal care situation 14. continue aspirin 81 mg and plavix 75 mg added, continue for 3 months and then plavix for a lifetime will need follow up in 2-3 weeks after discharge from rehab with Dr Tracie Esposito or Tracie Parks PAC, neurology I have seen and discussed above patient with Dr Jose Miguel De Los Santos, neurology Continues with left hemichorea but according to one nurse it may have improved in the past few hours afte a single dose of haldol will switch to iv haldol everyh six hours to insure regular dosing and to allow for some potential issues with swallowing meds, continue the topamax for nwo but consideer tryhiign keppra iv every 12 hours at low doses if things do not improve and after that depakote if choreiform movements do not improve after several more days unfortunately haldol or any old school dopamine blocking agent remais the statistically most likely treatment to control these movements and we may really have to push the dosing hard to achieve control ie up to 2-5 mg every six hours or consider outpatient xenazine or even a tertiary care center referral This is obviously not an ideal situation and therapeutic options are limited and will have negative side effects which hopefully wiil be less than those already stemming fromn the movments themselves ( rhabdomyolysis , sleep depivation and renal dysfunction and potentially cardiac stress ) Jose Miguel De Los Santos MD
--- NOTE | 2017-05-21 16:48 | Progress Note ---
Internal Med Progress Note Date of Service: May 21, 2017. Provider Documentation: SUBJECTIVE: having uncontrolled movements of left hand denies any pain no sob afebrile had some chest pain earlier but ok now no nausea answers mostly by nodding head OBJECTIVE: Vital Signs-as noted below Exam: General-alert and awake. ENT-normal hearing Neck-no neck masses Lungs-cta b/l no wheezing or crackles Heart-s1 and s2 heard regular no murmurs Abdomen-soft bowel sounds present non tender no distension Extremities-no edema no erythema Neuro-alert and awake spontaneous left extremity movements Lab data as noted below. 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 As not able to take po changed Haldol to iv today by neurology If not improved trial for trial of IV Keppra or IV Depakote in plan mild rhabdomyolyiss will f/u labs on iv fluids. chest discomfort in am mild elevation of troponin but trending down. could also be from rhabdomyolysis will monitor. elevated leukocytosis may be from stress from the hemiballismus movements vs trauma on Rocephin.will monitor SICK SINUS SYNDROME S/P PACER Tachyarrhythmia vs pacemaker artifacts/error Per Cardiology note 05/15/17: pacemaker s/p device interrogation, device is being confused by her movements and actually firing under its rate responsive program". Metoprolol which patient was not taking at home recent was restarted Diabetes: is on insulin, will monitor Hypothyroidism history: continue levothyroxine History of Orthostatic hypotension: holding midodrine for now History of Depression: continue Cymbalta DVT Prophylaxis: lovenox 40 mg daily PT/OT, physical rehabilitation placement Patient's daughter [phone] is concerned about Haldol therapy for the hemiballismus movements causing confusion DVT PROPHYLAXIS Lovenox DISPOSITION transfer to [facility] as started on iv Haldol Vital Signs: Date Time Temp Pulse Resp B/P (MAP) Pulse Ox O2 Delivery O2 Flow Rate FiO2 05/21/17 15:40 36.9 68 18 138/54 (82) 95 Room Air 05/21/17 15:40 95 Room Air 05/21/17 12:10 36.7 90 20 148/78 (101) 92 Room Air 05/21/17 08:00 84 18 121/69 (86) 05/21/17 08:00 95 Room Air 05/21/17 07:43 86 18 134/79 (97) 95 Room Air 05/21/17 07:30 96 Room Air 05/21/17 07:30 36.7 80 20 128/59 (82) 96 Room Air 05/21/17 00:00 Room Air 05/20/17 23:33 37.3 90 20 133/54 (80) 97 Room Air 05/20/17 21:12 91 129/65 (86) Lab Results: Results Past 24 Hours Test 05/20/17 20:10 05/21/17 08:13 05/21/17 08:14 05/21/17 11:10 Range/Units Bedside Glucose 118 139 170 70-90 mg/dl Troponin I 0.554 0-0.045 ng/ml Test 05/21/17 11:57 05/21/17 15:55 05/21/17 15:58 Range/Units White Blood Count 11.65 4.8-10.8 K/uL Red Blood Count 3.92 4.2-5.4 M/uL Hemoglobin 11.8 12.0-16.0 g/dL Hematocrit 35.7 37-47 % Mean Corpuscular Volume 91.1 80-100 fL Mean Corpuscular Hemoglobin 30.1 25-34 pg Mean Corpuscular Hemoglobin Concent 33.1 32-36 g/dl Platelet Count 245 130-400 K/uL Mean Platelet Volume 11.5 7.4-10.4 fL Neutrophils (%) (Auto) 80.7 % Lymphocytes (%) (Auto) 8.6 % Monocytes (%) (Auto) 9.6 % Eosinophils (%) (Auto) 0.5 % Basophils (%) (Auto) 0.3 % Neutrophils # (Auto) 9.41 1.4-6.5 K/uL Lymphocytes # (Auto) 1.00 1.2-3.4 K/uL Monocytes # (Auto) 1.12 0.11-0.59 K/uL Eosinophils # (Auto) 0.06 0-0.5 K/uL Basophils # (Auto) 0.03 0-0.2 K/uL RDW Standard Deviation 47.2 36.4-46.3 fL RDW Coefficient of Variation 14.5 11.5-14.5 % Immature Granulocyte % (Auto) 0.3 % Immature Granulocyte # (Auto) 0.03 0.00-0.02 K/uL Sodium Level 139 136-145 mmol/L Potassium Level 4.0 3.5-5.1 mmol/L Chloride Level 106 98-107 mmol/L Carbon Dioxide Level 24 21-32 mmol/L Anion Gap 9.0 3-11 mmol/L Blood Urea Nitrogen 35 7-18 mg/dl Creatinine 1.05 0.60-1.20 mg/dl Est Creatinine Clear Calc Drug Dose 39.2 ml/min Estimated GFR () 57.7 Estimated GFR (Non- 49.8 BUN/Creatinine Ratio 33.0 10-20 Random Glucose 121 70-99 mg/dl Calcium Level 8.7 8.5-10.1 mg/dl Total Creatine Kinase 1848 26-192 U/L Creatine Kinase MB 29.5 0.5-3.6 ng/ml Creatine Kinase MB Ratio 1.6 0-3.0 Troponin I 0.448 0-0.045 ng/ml Bedside Glucose 101 70-90 mg/dl
[2017-05-21] MEDS: HALOPERIDOL LACTATE 5 MG/ML 1 ML VIAL IV SCH ×2 (18:52→23:51)
--- NOTE | 2017-05-21 22:27 | DIAGNOSTIC IMAGING REPORT ---
CHEST ONE VIEW PORTABLE CLINICAL HISTORY: Cough. COMPARISON STUDY: Chest radiograph May 14, 2017. FINDINGS: There is a dual lead left subclavian pacemaker, median sternotomy wires and mediastinal surgical clips. There are old bilateral rib fractures. There is no pneumothorax or pleural effusion. There is no evidence for pulmonary edema. Moderate cardiomegaly is noted. Linear left lower lung opacity favors atelectasis. IMPRESSION: 1. No acute cardiopulmonary findings. 2. Linear left lower lung opacity which favors atelectasis. Electronically signed by: Shamir Mariscal M.D. 05/21/2017 10:25 PM Dictated Date/Time: 05/21/2017 10:23 PM
[2017-05-22] VITALS (7 sets, daily range): BP systolic 105–155; BP diastolic 57–85; PULSE 72–88; TEMP 36.5–37; O2SAT 90–93
[2017-05-22] MEDS: HALOPERIDOL LACTATE 5 MG/ML 1 ML VIAL IV SCH ×4 (05:32→23:45)
[2017-05-22] MEDS: LEVOTHYROXINE 88 MCG TAB PO SCH (05:51)
[2017-05-22] MEDS: METOPROLOL TARTRATE 25 MG TAB PO SCH ×2 (08:27→20:38)
[2017-05-22] MEDS: CHOLECALCIFEROL 1000 INTER.UNIT TAB PO SCH (08:28)
[2017-05-22] MEDS: DULOXETINE HCL 60 MG CAP PO SCH (08:28)
[2017-05-22] MEDS: CLOPIDOGREL BISULFATE 75 MG TAB PO SCH (08:28)
[2017-05-22] MEDS: ENOXAPARIN 40 MG/0.4 ML SYR SQ SCH (08:29)
[2017-05-22] MEDS: ASPIRIN 81 MG CHEW PO SCH (08:30)
[2017-05-22] MEDS: CEROVITE ADV FORMULA TAB PO SCH ×2 (08:30→20:38)
[2017-05-22] MEDS: INSULIN ASPART 100 UNITS/ML 3 ML PEN SC SCH ×4 (08:36→20:44)
[2017-05-22] MEDS: INSULIN GLARGINE SOLOSTAR 100 UNITS/ML 3 ML PEN SC SCH ×2 (08:37→20:46)
[2017-05-22] MEDS: TOPIRAMATE 50 MG TAB PO SCH (08:40)
[2017-05-22] MEDS: SODIUM CHLORIDE 0.9% 1000ML 1,000 ML IV SCH ×2 (08:40→23:46)
[2017-05-22 08:42] LABS: BASO % 0.3 %; BASO ABS # 0.03 K/uL (0-0.2); EOS % 3.7 %; EOS ABS # 0.38 K/uL (0-0.5); HEMATOCRIT 35.3 % (37-47); HEMOGLOBIN 11.7 g/dL (12.0-16.0); IG# 0.03 K/uL (0.00-0.02); LYMPH % 11.2 %; LYMPH ABS # 1.14 K/uL (1.2-3.4); MEAN CELL VOLUME 91.2 fL (80-100); MEAN CORPUSCULAR HEMOGLOBIN 30.2 pg (25-34); MEAN CORPUSCULAR HGB CONC 33.1 g/dl (32-36); MEAN PLATELET VOLUME 11.2 fL (7.4-10.4); MONO ABS # 1.12 K/uL (0.11-0.59); NEUT % 73.5 %; NEUT ABS # 7.48 K/uL (1.4-6.5); PLATELET COUNT 239 K/uL (130-400); RED CELL DISTRIBUTION WIDTH CV 14.7 % (11.5-14.5); RED CELL DISTRIBUTION WIDTH SD 47.9 fL (36.4-46.3); WHITE BLOOD COUNT 10.18 K/uL (4.8-10.8)
--- NOTE | 2017-05-22 09:16 | DIAGNOSTIC IMAGING REPORT ---
CHEST ONE VIEW PORTABLE CLINICAL HISTORY: 81 years-old Female presenting with cough. TECHNIQUE: Portable upright AP view of the chest was obtained. COMPARISON: 05/21/2017. FINDINGS: Left subclavian pacer with leads to the right atrium and right ventricular apex. Median sternotomy wires and extensive mediastinal surgical clips again noted. Multiple external leads overlie the thorax degrade image quality. Atherosclerosis of aortic arch. Cardiac silhouette top normal in size. Prominence of pulmonary vasculature suggested. Mildly low lung volumes with hypoventilatory changes. Bandlike opacity in the left midlung and right lung base. No large pleural effusion or pneumothorax. Degenerative changes of the thoracic spine. Upper abdomen normal. IMPRESSION: 1. Mildly low lung volumes with hypoventilatory changes and bilateral bandlike atelectasis. 2. Suggestion of volume overload. No bishop pulmonary edema. 3. Limited radiograph. Electronically signed by: Denny Templeton M.D. 05/22/2017 9:14 AM Dictated Date/Time: 05/22/2017 9:13 AM
[2017-05-22 09:24] LABS: CALCIUM 8.5 mg/dl (8.5-10.1); CREATININE 0.8 mg/dl (0.60-1.20); POTASSIUM 3.6 mmol/L (3.5-5.1)
[2017-05-22] MEDS: ACETAMINOPHEN 325 MG TAB PO PRN (10:10)
--- NOTE | 2017-05-22 11:25 | Pharmacy Progress Note ---
Pharmacy Glycemic Short Note 2 Date of Service May 22, 2017. Outpatient Anti-diabetic Regimen: * Lantus 27 units SQ qAM, 11 units SQ qPM * Humalog 5 units TID plus sliding scale * A1c = 7.9% 05/15/17 (9.7% on 08/29/16) ASSESSMENT: * Yesterday, Ms Garnett's blood sugars were 139, 170, 101, 105 mg/dL. The patient received a total of 23 units of insulin. * 14 units of basal and 9 units of bolus insulin. Patient is consuming minimal carbohydrates. * Fasting BSG of 114 mg/dL is at goal. No change to basal insulin. * Post-prandial BSGs are at goal but trending downward throughout the day, therefore I will loosen car ratio. PLAN FOR INPATIENT GLYCEMIC CONTROL: * Basal insulin * LANTUS 7 units SQ BID * Bolus Insulin * NOVOLOG per scale ACHS or Q6hrs while NPO * Goal Range: Low 110 mg/dL - High 140 mg/dL * Correction Factor: 30 mg/dL/unit * Nutritional / Prandial insulin per carb ratio of 1 unit per 15 grams CHO consumed PLAN FOR DISCHARGE: * Current A1c (7.9%) reflects acceptable glycemic control as an outpatient ( goal range of 7.6-8.0 % per the Elements of Diabetes Care Scoring Scale) * Expect that patient may resume home regimen on discharge. Thank you.
[2017-05-22] MEDS: CEFTRIAXONE SOD INJ 1 GM in DEXTROSE 5% ADD-VANTAGE 50ML 50 ML IV SCH (13:39)
--- NOTE | 2017-05-22 15:35 | Neurology Progress Notes ---
Neurology Progress Note Date of Service May 22, 2017. Rosaline Vo is a 81 year old female who started having left sided movement which she is unable to control. She has a PMH DM, CAD with bipass x 4 2001, pacemaker , orthostatic hypotension,dementia who states she started having issues with movement yesterday. she states she has always had movement at night with her feet but the arm was never effected. Her daughter states they gave her ativan in the ED which put her to sleep and the only movement at that time was her left foot. She denies any new medications but does say she has not felt well lately and does get alot of UTI's. She states her gait is off and she feel unsteady. denies CP, SOB, abdominal pain, numbness tingling, vision changes, N, V, bowel or bladder symptoms. She is lying in bed sleeping OT and PT have tried working with her and nursing said she was OOB to chair this am but someone had to be there with her because she has a hard time staying in chair. She is more calm with sleeping and she is still refusing the haldol periodically. she is very restless and lethargic. she had CP this am and was given ntg. Her troponin was slightly elevated. She did better overnight and slept more restful according to the nursing staff. She ate her breakfast this am with only help cutting into bites. because of current thrashing she pulled out her IV. Nursing states the haldol is helping but it is not a lasting effect. Objective Date Time Temp Pulse Resp B/P (MAP) Pulse Ox O2 Delivery O2 Flow Rate FiO2 05/22/17 15:14 36.6 88 18 105/57 (73) 91 Room Air 05/22/17 12:00 93 Room Air 05/22/17 11:30 37.0 79 16 154/72 (99) 90 Room Air 05/22/17 08:00 93 Room Air 05/22/17 07:06 36.7 72 24 155/64 (94) 93 Room Air 05/22/17 04:00 Room Air 05/22/17 04:00 36.6 79 18 155/69 (97) 93 Room Air 05/21/17 23:59 Room Air 05/21/17 23:49 36.9 82 20 132/59 (83) 92 Room Air 05/21/17 20:20 36.8 83 24 133/61 (85) 94 Room Air 05/21/17 16:00 91 Room Air 05/21/17 15:40 36.9 68 18 138/54 (82) 95 Room Air 05/21/17 15:40 95 Room Air Last 24 Hours Test 05/21/17 15:55 05/21/17 15:58 05/21/17 20:11 05/21/17 20:37 Bedside Glucose 101 mg/dl 105 mg/dl Troponin I 0.455 ng/ml 0.393 ng/ml Test 05/22/17 06:22 05/22/17 06:23 05/22/17 07:22 05/22/17 08:31 Total Creatine Kinase 840 U/L White Blood Count 10.18 K/uL Red Blood Count 3.87 M/uL Hemoglobin 11.7 g/dL Hematocrit 35.3 % Mean Corpuscular Volume 91.2 fL Mean Corpuscular Hemoglobin 30.2 pg Mean Corpuscular Hemoglobin Concent 33.1 g/dl Platelet Count 239 K/uL Mean Platelet Volume 11.2 fL Neutrophils (%) (Auto) 73.5 % Lymphocytes (%) (Auto) 11.2 % Monocytes (%) (Auto) 11.0 % Eosinophils (%) (Auto) 3.7 % Basophils (%) (Auto) 0.3 % Neutrophils # (Auto) 7.48 K/uL Lymphocytes # (Auto) 1.14 K/uL Monocytes # (Auto) 1.12 K/uL Eosinophils # (Auto) 0.38 K/uL Basophils # (Auto) 0.03 K/uL RDW Standard Deviation 47.9 fL RDW Coefficient of Variation 14.7 % Immature Granulocyte % (Auto) 0.3 % Immature Granulocyte # (Auto) 0.03 K/uL Bedside Glucose 114 mg/dl Sodium Level 141 mmol/L Potassium Level 3.6 mmol/L Chloride Level 109 mmol/L Carbon Dioxide Level 21 mmol/L Anion Gap 12.0 mmol/L Blood Urea Nitrogen 28 mg/dl Creatinine 0.80 mg/dl Est Creatinine Clear Calc Drug Dose 51.8 ml/min Estimated GFR () 80.1 Estimated GFR (Non- 69.1 BUN/Creatinine Ratio 35.6 Random Glucose 120 mg/dl Calcium Level 8.5 mg/dl Magnesium Level 2.3 mg/dl Test 05/22/17 11:41 Bedside Glucose 145 mg/dl Imaging: no new imaging Exam: Gen: alert lungs course breath sounds CV RRR uncontrolled thrashing with left side more with UE than LE. very agitated an aware of where she is and what is going on. Current Inpatient Medications Medications (Trade) Dose Ordered Sig/Krish Route Start Time Stop Time Status Last Admin Dose Admin Acetaminophen (Tylenol Tab) 650 mg Q4H PRN PO 05/14/17 14:15 06/13/17 14:14 05/22/17 10:10 650 MG Magnesium Hydroxide (Milk Of Magnesia Susp) 30 ml Q12H PRN PO 05/14/17 14:15 06/13/17 14:14 Ondansetron HCl (Zofran Inj) 4 mg Q6H PRN IV 05/14/17 14:15 06/13/17 14:14 Nitroglycerin (Nitrostat Tab) 0.4 mg UD PRN SL 05/14/17 14:15 06/13/17 14:14 05/21/17 07:53 0.4 MG Insulin Aspart (novoLOG ASPART) SLIDING SCALE If C... ACHS SC 05/14/17 16:30 06/13/17 16:29 05/22/17 13:04 4 UNITS Glucose (Glucose 40% Gel) 15-30 GRAMS 15 GRAMS... UD PRN PO 05/14/17 14:30 06/13/17 14:29 05/17/17 16:39 15 GM Glucose (Glucose Chew Tab) 4-8 Tablets 4 Tabl... UD PRN PO 05/14/17 14:30 06/13/17 14:29 Dextrose (Dextrose 50% 50ML Syringe) 25-50ML OF 50% DW IV FOR... UD PRN IV 05/14/17 14:30 06/13/17 14:29 Glucagon (Glucagon Inj) 1 mg UD PRN SQ 05/14/17 14:30 06/13/17 14:29 Miscellaneous Information (Consult Glycemic Management Pharmacy) 1 ea UD PRN N/A 05/14/17 15:00 06/13/17 14:59 Aspirin (Aspirin Chew) 81 mg DAILY PO 05/15/17 09:00 06/14/17 08:59 05/22/17 08:30 81 MG Duloxetine HCl (Cymbalta Cap) 60 mg DAILY PO 05/15/17 09:00 06/14/17 08:59 05/22/17 08:28 60 MG Levothyroxine Sodium (Synthroid Tab) 88 mcg DAILYBB PO 05/15/17 06:30 06/14/17 06:29 05/22/17 05:51 88 MCG Midodrine (Proamatine Tab) 10 mg TID@0600,1200,1800 PO 05/14/17 18:00 06/13/17 17:59 Future Hold 05/19/17 12:42 10 MG Cholecalciferol (Vitamin D Tab) 1,000 inter.unit DAILY PO 05/15/17 09:00 06/14/17 08:59 05/22/17 08:28 1,000 INTER.UNIT Multivitamins/ Minerals (Multivitamin W/ Minerals Tab) 1 tab BID PO 05/14/17 21:00 06/13/17 20:59 05/22/17 08:30 1 TAB Metoprolol Tartrate (Lopressor Tab) 25 mg BID PO 05/15/17 07:00 06/14/17 06:59 05/22/17 08:27 25 MG Metoprolol Tartrate (Lopressor Iv) 5 mg Q6 PRN IV 05/14/17 18:45 06/13/17 18:44 05/14/17 19:59 5 MG Clopidogrel Bisulfate (plAVix TAB) 75 mg QAM PO 05/14/17 18:45 06/13/17 18:44 05/22/17 08:28 75 MG Sodium Chloride 1,000 ml @ 50 mls/hr Q20H IV 05/19/17 07:15 06/18/17 07:14 05/22/17 08:40 125 MLS/HR Topiramate (Topamax Tab) 50 mg BID PO 05/19/17 21:00 06/18/17 20:59 05/22/17 08:40 50 MG Ceftriaxone Sodium 1 gm/ Dextrose 50 ml @ 100 mls/hr Q24H IV 05/21/17 14:00 05/30/17 13:59 05/22/17 13:39 100 MLS/HR Enoxaparin Sodium (Lovenox Inj) 40 mg QAM SQ 05/21/17 09:00 06/20/17 08:59 05/22/17 08:29 40 MG Morphine Sulfate (MoRPHine SULFATE INJ) 2 mg Q3HWA PRN IV 05/21/17 08:00 06/04/17 07:59 Al Hydrox/Mg Hydrox/Simethicone (Maalox Max Susp) 30 ml Q6H PRN PO 05/21/17 08:15 06/20/17 08:14 Insulin Glargine (Lantus Solostar Pen) 7 units BID SC 05/21/17 09:00 06/20/17 08:59 05/22/17 08:37 7 UNITS Haloperidol Lactate (Haldol Inj) 1 mg Q6 IV 05/21/17 18:00 05/31/17 17:59 05/22/17 12:59 1 MG Impression 81 year old female with new onset left sided chorea like movement Plan 1. CT head negative for acute findings would be helpful to evaluate for stroke with MRI but patient had pacemaker 2. IV accidently removed will need to keep on schedule with haldol 3. EEG - read as normal 4. pacemaker interrogated no issues 5. admission for further work up 6. chorea type movements can be caused by hyperglycemia, hyperthyroid, stroke, lyme. will need further evaluation this is likely stroke. 7. stop klonopin .25mg after tomorrows 1 dose in am and stop gabapentin 100 mg TID- done 8. repeat CT head as needed 9. carotid doppler no significant stenosis 10. TTE- ASD not assessed 11. cardiology was consulted and her pacemaker was readjusted for movements and restarted metoprolol 12. started haldol 1 mg currently dosing is TID with meals orally, she has been refusing some doses so it is difficult to determine if she is being helped by the medication. Will switch to IV Haldol 1 mg for now to see if she improves. alternative would be to push topamax, consider keppra and consider depakote disposition is a major issue now as she cannot return to extended or personal care and remains acutely ill with low grade rhabdo and renal failure 13. PT/OT for discharge needs and will likely need some rehab prior to returning to her personal care situation 14. continue aspirin 81 mg and plavix 75 mg added, continue for 3 months and then plavix for a lifetime will need follow up in 2-3 weeks after discharge from rehab with Dr Tracie Esposito or Tracie Parks PAC, neurology I have seen and discussed above patient with Dr Jose Miguel De Los Santos, neurology Was better this am and actually slept and could use left arm to eat with help but this afternoon is back to left hemiballisms and will need "back end" loading of haldol and increase the topamax to 100 bid for a total haldol of 6 mg per day 1mg at 6am and noon and 2mg a 6 pm and midnight situyation better but still tenuous for discharge anywhere at this time will follow up Jose Miguel De Los Santos MD
--- NOTE | 2017-05-22 18:24 | Progress Note ---
Internal Med Progress Note Date of Service: May 22, 2017. Provider Documentation: SUBJECTIVE: Still having uncontrolled movements of left hand but somewhat better complains of sob worried about fluid built up ate ok afebrile mostly answers by nodding head but speaking sometimes denies any pain or nausea OBJECTIVE: Vital Signs-as noted below Exam: General-alert and awake. ENT-normal hearing Neck-no neck masses Lungs-cta b/l no wheezing or crackles Heart-s1 and s2 heard regular no murmurs Abdomen-soft bowel sounds present non tender no distension Extremities-no edema no erythema Neuro-alert and awake spontaneous left extremity movements Lab data as noted below. 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 As not able to take po changed Haldol to iv by neurology mildly better today Haldol increased today and continue to monitor If not improved trial for trial of IV Keppra or IV Depakote in plan mild rhabdomyolysis will f/u labs cpk 840 today on iv fluids. Pulmonary congestion sob and cough on fluids as above will give a dose of Lasix. f/u cxr in am chest discomfort yesterday mild elevation of troponin but trending down. could also be from rhabdomyolysis no complaints today elevated leukocytosis may be from stress from the hemiballismus movements vs trauma on Rocephin.will monitor SICK SINUS SYNDROME S/P PACER Tachyarrhythmia vs pacemaker artifacts/error Per Cardiology note 05/15/17: pacemaker s/p device interrogation, device is being confused by her movements and actually firing under its rate responsive program". Metoprolol which patient was not taking at home recent was restarted Diabetes: is on insulin, will monitor. fairly controlled Hypothyroidism history: continue levothyroxine History of Orthostatic hypotension: holding midodrine for now History of Depression: continue Cymbalta DVT Prophylaxis: Lovenox 40 mg daily PT/OT, physical rehabilitation placement Patient's daughter [phone] is concerned about Haldol therapy for the hemiballismus movements causing confusion DVT PROPHYLAXIS Lovenox DISPOSITION monitor in tele Vital Signs: Date Time Temp Pulse Resp B/P (MAP) Pulse Ox O2 Delivery O2 Flow Rate FiO2 05/22/17 15:14 36.6 88 18 105/57 (73) 91 Room Air 05/22/17 12:00 93 Room Air 05/22/17 11:30 37.0 79 16 154/72 (99) 90 Room Air 05/22/17 08:00 93 Room Air 05/22/17 07:06 36.7 72 24 155/64 (94) 93 Room Air 05/22/17 04:00 Room Air 05/22/17 04:00 36.6 79 18 155/69 (97) 93 Room Air 05/21/17 23:59 Room Air 05/21/17 23:49 36.9 82 20 132/59 (83) 92 Room Air 05/21/17 20:20 36.8 83 24 133/61 (85) 94 Room Air Lab Results: Results Past 24 Hours Test 05/21/17 20:11 05/21/17 20:37 05/22/17 06:22 05/22/17 06:23 Range/Units Troponin I 0.393 0-0.045 ng/ml Bedside Glucose 105 70-90 mg/dl Total Creatine Kinase 840 26-192 U/L White Blood Count 10.18 4.8-10.8 K/uL Red Blood Count 3.87 4.2-5.4 M/uL Hemoglobin 11.7 12.0-16.0 g/dL Hematocrit 35.3 37-47 % Mean Corpuscular Volume 91.2 80-100 fL Mean Corpuscular Hemoglobin 30.2 25-34 pg Mean Corpuscular Hemoglobin Concent 33.1 32-36 g/dl Platelet Count 239 130-400 K/uL Mean Platelet Volume 11.2 7.4-10.4 fL Neutrophils (%) (Auto) 73.5 % Lymphocytes (%) (Auto) 11.2 % Monocytes (%) (Auto) 11.0 % Eosinophils (%) (Auto) 3.7 % Basophils (%) (Auto) 0.3 % Neutrophils # (Auto) 7.48 1.4-6.5 K/uL Lymphocytes # (Auto) 1.14 1.2-3.4 K/uL Monocytes # (Auto) 1.12 0.11-0.59 K/uL Eosinophils # (Auto) 0.38 0-0.5 K/uL Basophils # (Auto) 0.03 0-0.2 K/uL RDW Standard Deviation 47.9 36.4-46.3 fL RDW Coefficient of Variation 14.7 11.5-14.5 % Immature Granulocyte % (Auto) 0.3 % Immature Granulocyte # (Auto) 0.03 0.00-0.02 K/uL Test 05/22/17 07:22 05/22/17 08:31 05/22/17 11:41 05/22/17 16:20 Range/Units Bedside Glucose 114 145 129 70-90 mg/dl Sodium Level 141 136-145 mmol/L Potassium Level 3.6 3.5-5.1 mmol/L Chloride Level 109 98-107 mmol/L Carbon Dioxide Level 21 21-32 mmol/L Anion Gap 12.0 3-11 mmol/L Blood Urea Nitrogen 28 7-18 mg/dl Creatinine 0.80 0.60-1.20 mg/dl Est Creatinine Clear Calc Drug Dose 51.8 ml/min Estimated GFR () 80.1 Estimated GFR (Non- 69.1 BUN/Creatinine Ratio 35.6 10-20 Random Glucose 120 70-99 mg/dl Calcium Level 8.5 8.5-10.1 mg/dl Magnesium Level 2.3 1.8-2.4 mg/dl
[2017-05-22] MEDS ORDERED: FUROSEMIDE INJ 20 MG in SYRINGE 0 ML IV ONE (18:30)
[2017-05-22] MEDS: TOPIRAMATE 100 MG TAB PO SCH (20:37)
[2017-05-23] VITALS (10 sets, daily range): BP systolic 122–185; BP diastolic 56–85; PULSE 67–96; TEMP 36.4–37.3; O2SAT 91–100
[2017-05-23] MEDS: LEVOTHYROXINE 88 MCG TAB PO SCH (05:43)
[2017-05-23] MEDS ORDERED: HALOPERIDOL LACTATE 5 MG/ML 1 ML VIAL IV SCH (06:00)
[2017-05-23] MEDS: CLOPIDOGREL BISULFATE 75 MG TAB PO SCH (08:09)
[2017-05-23] MEDS: CHOLECALCIFEROL 1000 INTER.UNIT TAB PO SCH (08:09)
[2017-05-23] MEDS: DULOXETINE HCL 60 MG CAP PO SCH (08:09)
[2017-05-23] MEDS: ASPIRIN 81 MG CHEW PO SCH (08:10)
[2017-05-23] MEDS: CEROVITE ADV FORMULA TAB PO SCH ×2 (08:10→20:40)
[2017-05-23] MEDS: METOPROLOL TARTRATE 25 MG TAB PO SCH ×2 (08:10→20:40)
[2017-05-23] MEDS: TOPIRAMATE 100 MG TAB PO SCH (08:11)
[2017-05-23] MEDS: INSULIN ASPART 100 UNITS/ML 3 ML PEN SC SCH ×4 (08:16→20:37)
[2017-05-23] MEDS: INSULIN GLARGINE SOLOSTAR 100 UNITS/ML 3 ML PEN SC SCH ×2 (08:16→16:00)
[2017-05-23] MEDS: ENOXAPARIN 40 MG/0.4 ML SYR SQ SCH (08:17)
[2017-05-23 08:59] LABS: CALCIUM 8.7 mg/dl (8.5-10.1); CREATININE 0.82 mg/dl (0.60-1.20); POTASSIUM 3.6 mmol/L (3.5-5.1)
[2017-05-23] MEDS: VALPROATE SOD IV 500 MG in DEXTROSE 5% 50ML 50 ML IV SCH ×2 (09:35→20:39)
[2017-05-23] MEDS: HALOPERIDOL LACTATE 5 MG/ML 1 ML VIAL IV SCH ×3 (12:47→23:31)
--- NOTE | 2017-05-23 13:34 | Pharmacy Progress Note ---
Pharmacy Glycemic Short Note 2 Date of Service May 23, 2017. Outpatient Anti-diabetic Regimen: * Lantus 27 units SQ qAM, 11 units SQ qPM * Humalog 5 units TID plus sliding scale * A1c = 7.9% 05/15/17 (9.7% on 08/29/16) ASSESSMENT: * Yesterday, Ms Garnett's blood sugars were 114, 145, 129, 114 mg/dL. The patient received a total of 23 units of insulin. * 14 units of basal and 9 units of bolus insulin. Patient is consuming minimal carbohydrates. * Fasting BSG of 130 mg/dL is at goal. No change to basal insulin dose. I will reschedule today's HS dose to be given at dinner and then tomorrow will transition to once daily AM dosing to minimize injections. * Post-prandial BSGs are also at goal. No changes to bolus insulin. PLAN FOR INPATIENT GLYCEMIC CONTROL: * Basal insulin * LANTUS 7 units SQ with breakfast and dinner, then start Lantus 14 units SQ qAM on 05/24 * Bolus Insulin * NOVOLOG per scale ACHS or Q6hrs while NPO * Goal Range: Low 110 mg/dL - High 140 mg/dL * Correction Factor: 30 mg/dL/unit * Nutritional / Prandial insulin per carb ratio of 1 unit per 15 grams CHO consumed PLAN FOR DISCHARGE: * Current A1c (7.9%) reflects acceptable glycemic control as an outpatient ( goal range of 7.6-8.0 % per the Elements of Diabetes Care Scoring Scale) * Expect that patient may resume home regimen on discharge. Current inpatient needs are significantly less. I suspect this may be due to dietary differences. Patient's outpatient regimen is highly basal weighted, therefore Lantus dose is probably covering meals also. May benefit from redistributing regimen to goal of 50% basal and 50% bolus. Thank you.
[2017-05-23] MEDS: CEFTRIAXONE SOD INJ 1 GM in DEXTROSE 5% ADD-VANTAGE 50ML 50 ML IV SCH (14:24)
--- NOTE | 2017-05-23 14:41 | Neurology Progress Notes ---
Neurology Progress Note Date of Service May 23, 2017. Rosaline Vo is a 81 year old female who started having left sided movement which she is unable to control. She has a PMH DM, CAD with bipass x 4 2001, pacemaker , orthostatic hypotension,dementia who states she started having issues with movement yesterday. she states she has always had movement at night with her feet but the arm was never effected. Her daughter states they gave her ativan in the ED which put her to sleep and the only movement at that time was her left foot. She denies any new medications but does say she has not felt well lately and does get alot of UTI's. She states her gait is off and she feel unsteady. denies CP, SOB, abdominal pain, numbness tingling, vision changes, N, V, bowel or bladder symptoms. She is lying in bed sleeping OT and PT have tried working with her and nursing said she was OOB to chair this am but someone had to be there with her because she has a hard time staying in chair. She is more calm with sleeping and she is still refusing the haldol periodically. she is very restless and lethargic. she had CP this am and was given ntg. Her troponin was slightly elevated. She slept again more restful according to the nursing staff. She ate her breakfast this am with only help cutting into bites. There is some slowing of chorea movements but still very bothersome to her at this time. when she sleeps she has minimal movement. Objective Date Time Temp Pulse Resp B/P (MAP) Pulse Ox O2 Delivery O2 Flow Rate FiO2 05/23/17 12:00 91 Room Air 05/23/17 11:41 37.3 81 20 129/56 (80) 91 Room Air 05/23/17 10:22 Room Air 05/23/17 08:00 36.8 86 24 146/71 (96) 100 Room Air 05/23/17 08:00 100 Room Air 05/23/17 04:00 36.8 91 22 133/69 (90) 92 Room Air 05/23/17 04:00 Room Air 05/23/17 00:17 36.5 67 16 134/71 (92) 91 Room Air 05/23/17 00:00 Room Air 05/22/17 20:00 Room Air 05/22/17 19:12 36.5 76 18 129/66 (87) 92 Room Air 05/22/17 16:00 Room Air 05/22/17 15:14 36.6 88 18 105/57 (73) 91 Room Air Last 24 Hours Test 05/22/17 16:20 05/22/17 20:44 05/23/17 07:26 05/23/17 08:08 Bedside Glucose 129 mg/dl 114 mg/dl 130 mg/dl Sodium Level 140 mmol/L Potassium Level 3.6 mmol/L Chloride Level 107 mmol/L Carbon Dioxide Level 22 mmol/L Anion Gap 12.0 mmol/L Blood Urea Nitrogen 28 mg/dl Creatinine 0.82 mg/dl Est Creatinine Clear Calc Drug Dose 51.2 ml/min Estimated GFR () 77.8 Estimated GFR (Non- 67.1 BUN/Creatinine Ratio 34.5 Random Glucose 103 mg/dl Calcium Level 8.7 mg/dl Total Creatine Kinase 385 U/L Test 05/23/17 11:09 Bedside Glucose 75 mg/dl Imaging: no new imaging Exam: Gen: alert with voice commend lungs course breath sounds CV RRR neuro aware [facility], 2018, 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 hip flex 5/5 bilateral sensation intact to light touch continue chorea movements left side, hand numerous bruising on arm and some mild bleeding due to uncontrolled movement Current Inpatient Medications Medications (Trade) Dose Ordered Sig/Krish Route Start Time Stop Time Status Last Admin Dose Admin Acetaminophen (Tylenol Tab) 650 mg Q4H PRN PO 05/14/17 14:15 06/13/17 14:14 05/22/17 10:10 650 MG Magnesium Hydroxide (Milk Of Magnesia Susp) 30 ml Q12H PRN PO 05/14/17 14:15 06/13/17 14:14 Ondansetron HCl (Zofran Inj) 4 mg Q6H PRN IV 05/14/17 14:15 06/13/17 14:14 Nitroglycerin (Nitrostat Tab) 0.4 mg UD PRN SL 05/14/17 14:15 06/13/17 14:14 05/21/17 07:53 0.4 MG Insulin Aspart (novoLOG ASPART) SLIDING SCALE If C... ACHS SC 05/14/17 16:30 06/13/17 16:29 05/23/17 08:16 3 UNITS Glucose (Glucose 40% Gel) 15-30 GRAMS 15 GRAMS... UD PRN PO 05/14/17 14:30 06/13/17 14:29 05/17/17 16:39 15 GM Glucose (Glucose Chew Tab) 4-8 Tablets 4 Tabl... UD PRN PO 05/14/17 14:30 06/13/17 14:29 Dextrose (Dextrose 50% 50ML Syringe) 25-50ML OF 50% DW IV FOR... UD PRN IV 05/14/17 14:30 06/13/17 14:29 Glucagon (Glucagon Inj) 1 mg UD PRN SQ 05/14/17 14:30 06/13/17 14:29 Miscellaneous Information (Consult Glycemic Management Pharmacy) 1 ea UD PRN N/A 05/14/17 15:00 06/13/17 14:59 Aspirin (Aspirin Chew) 81 mg DAILY PO 05/15/17 09:00 06/14/17 08:59 05/23/17 08:10 81 MG Duloxetine HCl (Cymbalta Cap) 60 mg DAILY PO 05/15/17 09:00 06/14/17 08:59 05/23/17 08:09 60 MG Levothyroxine Sodium (Synthroid Tab) 88 mcg DAILYBB PO 05/15/17 06:30 06/14/17 06:29 05/23/17 05:43 88 MCG Midodrine (Proamatine Tab) 10 mg TID@0600,1200,1800 PO 05/14/17 18:00 06/13/17 17:59 Future Hold 05/19/17 12:42 10 MG Cholecalciferol (Vitamin D Tab) 1,000 inter.unit DAILY PO 05/15/17 09:00 06/14/17 08:59 05/23/17 08:09 1,000 INTER.UNIT Multivitamins/ Minerals (Multivitamin W/ Minerals Tab) 1 tab BID PO 05/14/17 21:00 06/13/17 20:59 05/23/17 08:10 1 TAB Metoprolol Tartrate (Lopressor Tab) 25 mg BID PO 05/15/17 07:00 06/14/17 06:59 05/23/17 08:10 25 MG Metoprolol Tartrate (Lopressor Iv) 5 mg Q6 PRN IV 05/14/17 18:45 06/13/17 18:44 05/14/17 19:59 5 MG Clopidogrel Bisulfate (plAVix TAB) 75 mg QAM PO 05/14/17 18:45 06/13/17 18:44 05/23/17 08:09 75 MG Sodium Chloride 1,000 ml @ 50 mls/hr Q20H IV 05/19/17 07:15 06/18/17 07:14 05/22/17 23:46 50 MLS/HR Ceftriaxone Sodium 1 gm/ Dextrose 50 ml @ 100 mls/hr Q24H IV 05/21/17 14:00 05/30/17 13:59 05/23/17 14:24 100 MLS/HR Enoxaparin Sodium (Lovenox Inj) 40 mg QAM SQ 05/21/17 09:00 06/20/17 08:59 05/23/17 08:17 40 MG Morphine Sulfate (MoRPHine SULFATE INJ) 2 mg Q3HWA PRN IV 05/21/17 08:00 06/04/17 07:59 Al Hydrox/Mg Hydrox/Simethicone (Maalox Max Susp) 30 ml Q6H PRN PO 05/21/17 08:15 06/20/17 08:14 Insulin Glargine (Lantus Solostar Pen) 7 units BID SC 05/21/17 09:00 05/23/17 18:00 05/23/17 08:16 7 UNITS Haloperidol Lactate (Haldol Inj) 2 mg Q6 IV 05/23/17 12:00 06/22/17 11:59 05/23/17 12:47 2 MG Valproate Sodium 500 mg/Dextrose 55 ml @ 55 mls/hr Q12H IV 05/23/17 09:00 06/22/17 08:59 05/23/17 09:35 55 MLS/HR Insulin Glargine (Lantus Solostar Pen) 14 units QAM SC 05/24/17 09:00 06/23/17 08:59 Impression 81 year old female with new onset left sided chorea like movement Plan 1. CT head negative for acute findings would be helpful to evaluate for stroke with MRI but patient had pacemaker 2. CK and GFR has improved continue to monitor 3. EEG - read as normal 4. pacemaker interrogated no issues 5. OOB when supervised, continue to help with meals and hydration 6. chorea type movements can be caused by hyperglycemia, hyperthyroid, stroke, lyme. will need further evaluation this is likely stroke. 7. klonopin and gabapentin were tried without improvement in movements 8. repeat CT head as needed 9. carotid doppler no significant stenosis 10. TTE- ASD not assessed 11. cardiology was consulted and her pacemaker was readjusted for movements and restarted metoprolol 12. IV Haldol 2 mg q 6 mg topamax has been stopped and depakote 500 mg q 12h started. Will also add seraquel 12.5 mg am/hs. will need to push haldol as tolerated. if failure of medications alternatives would trial Xenazine ( Tetrabenazaine) to see if chorea can be controlled. 13. PT/OT for discharge needs and will likely need some rehab prior to returning to her personal care situation 14. continue aspirin 81 mg and plavix 75 mg added, continue for 3 months and then plavix for a lifetime will need follow up in 2-3 weeks after discharge from rehab with Dr Tracie Esposito or Tracie Parks PAC, neurology I have seen and discussed above patient with Dr Jose Miguel De Los Santos, neurology MInimal progress at best -she is sleeping at night but movements persist despite haldol and topamax. we will stop the topamax try iv depakote and start bid seroquel to see if an atypical neuroleptic will offer more control coupled with the more traditional dopamine blocking agents and hopefully provide some sedation as well We did discuss situation with [facility] and they feel that our approach is what they would offer there Xenazine would be an option but if effective would not be covered by insurance unless we have exhausted all other options and failed so we will "go through the drill" push neuroleptics and try various aeds starting with depakote and consider keppra next if after two days no changes are seen that could be attributed to the depakote With polypharmacy however it will be difficult to tell which manipulation has had an effect and if movements are controlled at some point we may have to continue the multidrug regimen or withdraw selected agents slowly This lies well in the future however Dr Julian to take over tomorrow and she is well aware of the situation Jose Miguel De Los Santos MS
--- NOTE | 2017-05-23 17:09 | Progress Note ---
Internal Med Progress Note Date of Service: May 23, 2017. Provider Documentation: SUBJECTIVE: Still having uncontrolled movements of left hand but somewhat better than yesterday denies any sob today denies any pain afebrile did not eat much today no nausea OBJECTIVE: Vital Signs-as noted below Exam: General-alert and awake. ENT-normal hearing Neck-no neck masses Lungs-cta b/l no wheezing or crackles Heart-s1 and s2 heard regular no murmurs Abdomen-soft bowel sounds present non tender no distension Extremities-no edema no erythema Neuro-alert and awake spontaneous left extremity movements Lab data as noted below. 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 As not able to take po changed Haldol to iv by neurology mildly better today Haldol increased again today Topamax was stopped and Depakote and Seroquel started. If no improvement plan for Keppra. Neurology discussed with Larry and recommends Xenazine but only after all current options are exhausted. mild rhabdomyolysis will f/u labs cpk 385 today on iv fluids. Pulmonary congestion sob and cough on fluids as above will give a dose of Lasix. sob improved chest discomfort yesterday mild elevation of troponin but trending down. could also be from rhabdomyolysis no complaints today elevated leukocytosis may be from stress from the hemiballismus movements vs trauma on Rocephin.will monitor. cx no growth so far.Leukocytosis improved SICK SINUS SYNDROME S/P PACER Tachyarrhythmia vs pacemaker artifacts/error Per Cardiology note 05/15/17: pacemaker s/p device interrogation, device is being confused by her movements and actually firing under its rate responsive program". Metoprolol which patient was not taking at home recent was restarted Diabetes: is on insulin, will monitor. fairly controlled Hypothyroidism history: continue levothyroxine History of Orthostatic hypotension: holding midodrine for now History of Depression: continue Cymbalta DVT Prophylaxis: Lovenox 40 mg daily PT/OT, physical rehabilitation placement Patient's daughter [phone] is concerned about Haldol therapy for the hemiballismus movements causing confusion DVT PROPHYLAXIS Lovenox DISPOSITION monitor in tele to be determined Vital Signs: Date Time Temp Pulse Resp B/P (MAP) Pulse Ox O2 Delivery O2 Flow Rate FiO2 05/23/17 16:20 Room Air 05/23/17 16:20 37.3 82 22 185/85 (118) 91 Room Air 05/23/17 12:00 91 Room Air 05/23/17 11:41 37.3 81 20 129/56 (80) 91 Room Air 05/23/17 10:22 Room Air 05/23/17 08:00 36.8 86 24 146/71 (96) 100 Room Air 05/23/17 08:00 100 Room Air 05/23/17 04:00 36.8 91 22 133/69 (90) 92 Room Air 05/23/17 04:00 Room Air 05/23/17 00:17 36.5 67 16 134/71 (92) 91 Room Air 05/23/17 00:00 Room Air 05/22/17 20:00 Room Air 05/22/17 19:12 36.5 76 18 129/66 (87) 92 Room Air Lab Results: Results Past 24 Hours Test 05/22/17 20:44 05/23/17 07:26 05/23/17 08:08 05/23/17 11:09 Range/Units Bedside Glucose 114 130 75 70-90 mg/dl Sodium Level 140 136-145 mmol/L Potassium Level 3.6 3.5-5.1 mmol/L Chloride Level 107 98-107 mmol/L Carbon Dioxide Level 22 21-32 mmol/L Anion Gap 12.0 3-11 mmol/L Blood Urea Nitrogen 28 7-18 mg/dl Creatinine 0.82 0.60-1.20 mg/dl Est Creatinine Clear Calc Drug Dose 51.2 ml/min Estimated GFR () 77.8 Estimated GFR (Non- 67.1 BUN/Creatinine Ratio 34.5 10-20 Random Glucose 103 70-99 mg/dl Calcium Level 8.7 8.5-10.1 mg/dl Total Creatine Kinase 385 26-192 U/L Test 05/23/17 16:22 Range/Units Bedside Glucose 56 70-90 mg/dl
[2017-05-23] MEDS: SODIUM CHLORIDE 0.9% 1000ML 1,000 ML IV SCH (20:38)
[2017-05-23] MEDS: QUETIAPINE FUMARATE 25 MG TAB PO SCH (20:39)
[2017-05-23] MEDS ORDERED: INSULIN GLARGINE SOLOSTAR 100 UNITS/ML 3 ML PEN SC ONE (23:00)
[2017-05-24] VITALS (8 sets, daily range): BP systolic 135–179; BP diastolic 51–89; PULSE 61–72; TEMP 36.2–36.8; O2SAT 92–99
[2017-05-24] MEDS: LEVOTHYROXINE 88 MCG TAB PO SCH (05:53)
[2017-05-24] MEDS: HALOPERIDOL LACTATE 5 MG/ML 1 ML VIAL IV SCH ×4 (05:55→23:41)
[2017-05-24 07:23] LABS: HEMATOCRIT 35.5 % (37-47); HEMOGLOBIN 11.9 g/dL (12.0-16.0); MEAN CELL VOLUME 90.6 fL (80-100); MEAN CORPUSCULAR HEMOGLOBIN 30.4 pg (25-34); MEAN CORPUSCULAR HGB CONC 33.5 g/dl (32-36); MEAN PLATELET VOLUME 10.8 fL (7.4-10.4); PLATELET COUNT 278 K/uL (130-400); RED CELL DISTRIBUTION WIDTH CV 15.1 % (11.5-14.5); RED CELL DISTRIBUTION WIDTH SD 48.1 fL (36.4-46.3); WHITE BLOOD COUNT 10.16 K/uL (4.8-10.8)
[2017-05-24 08:00] LABS: CREATININE 0.8 mg/dl (0.60-1.20)
[2017-05-24] MEDS: CLOPIDOGREL BISULFATE 75 MG TAB PO SCH (08:45)
[2017-05-24] MEDS: ASPIRIN 81 MG CHEW PO SCH (08:45)
[2017-05-24] MEDS: CHOLECALCIFEROL 1000 INTER.UNIT TAB PO SCH (08:45)
[2017-05-24] MEDS: VALPROATE SOD IV 500 MG in DEXTROSE 5% 50ML 50 ML IV SCH (08:45)
[2017-05-24] MEDS: CEROVITE ADV FORMULA TAB PO SCH ×2 (08:45→19:39)
[2017-05-24] MEDS: METOPROLOL TARTRATE 25 MG TAB PO SCH ×2 (08:45→19:39)
[2017-05-24] MEDS: ENOXAPARIN 40 MG/0.4 ML SYR SQ SCH (08:46)
[2017-05-24] MEDS: QUETIAPINE FUMARATE 25 MG TAB PO SCH ×2 (08:46→19:39)
[2017-05-24] MEDS: DULOXETINE HCL 60 MG CAP PO SCH (08:46)
[2017-05-24] MEDS ORDERED: INSULIN GLARGINE SOLOSTAR 100 UNITS/ML 3 ML PEN SC SCH (09:00)
[2017-05-24] MEDS: INSULIN ASPART 100 UNITS/ML 3 ML PEN SC SCH ×4 (09:10→20:30)
[2017-05-24] MEDS: INSULIN GLARGINE SOLOSTAR 100 UNITS/ML 3 ML PEN SC SCH (09:11)
--- NOTE | 2017-05-24 09:44 | DIAGNOSTIC IMAGING REPORT ---
CHEST ONE VIEW PORTABLE CLINICAL HISTORY: aspiration dyspnea COMPARISON STUDY: 05/22/2017 FINDINGS: Stable findings of a prior median sternotomy and bipolar cardiac pacemaker placement. Unchanged interstitial prominence throughout both hemithoraces. Diaphragms are smooth. Costophrenic angles are sharp. IMPRESSION: Unchanging findings of pulmonary vascular congestion. Unchanging findings of interstitial change throughout both hemithoraces. The above report was generated using voice recognition software. It may contain grammatical, syntax or spelling errors. Electronically signed by: Jerardo Carrillo M.D. 05/24/2017 9:42 AM Dictated Date/Time: 05/24/2017 9:41 AM
--- NOTE | 2017-05-24 13:29 | Neurology Progress Notes ---
Neurology Progress Note Date of Service May 24, 2017. Rosaline oV is a 81 year old female who started having left sided movement which she is unable to control. She has a PMH DM, CAD with bipass x 4 2001, pacemaker , orthostatic hypotension,dementia who states she started having issues with movement yesterday. she states she has always had movement at night with her feet but the arm was never effected. Her daughter states they gave her ativan in the ED which put her to sleep and the only movement at that time was her left foot. She denies any new medications but does say she has not felt well lately and does get alot of UTI's. She states her gait is off and she feel unsteady. denies CP, SOB, abdominal pain, numbness tingling, vision changes, N, V, bowel or bladder symptoms. She is lying in bed sleeping OT and PT have tried working with her and nursing said she was OOB to chair this am but someone had to be there with her because she has a hard time staying in chair. She is more calm with sleeping and she is still refusing the haldol periodically. she is very restless and lethargic. she had CP this am and was given ntg. Her troponin was slightly elevated. She slept again more restful according to the nursing staff. she ate her breakfast this am and appeared to control some of the movement when taking medications. she is taking the Seroquel as ordered. h is currently sleeping and still. Objective Date Time Temp Pulse Resp B/P (MAP) Pulse Ox O2 Delivery O2 Flow Rate FiO2 05/24/17 11:30 36.6 64 18 165/79 (107) 92 Nasal Cannula 05/24/17 08:30 93 Room Air 05/24/17 07:18 36.8 71 18 179/51 (93) 93 Room Air 05/24/17 04:58 36.8 72 17 163/89 (113) 93 Room Air 05/24/17 04:00 Room Air 05/24/17 00:00 Room Air 05/23/17 23:59 36.4 67 20 149/65 (93) 93 Room Air 05/23/17 20:45 87 130/67 (88) 05/23/17 20:00 Room Air 05/23/17 18:02 36.7 96 20 122/60 (80) 92 Room Air 05/23/17 17:39 144/56 (85) 05/23/17 16:20 Room Air 05/23/17 16:20 37.3 82 22 185/85 (118) 91 Room Air Last 24 Hours Test 05/23/17 16:22 05/23/17 17:35 05/23/17 20:37 05/24/17 06:45 Bedside Glucose 56 mg/dl 81 mg/dl 85 mg/dl White Blood Count 10.16 K/uL Red Blood Count 3.92 M/uL Hemoglobin 11.9 g/dL Hematocrit 35.5 % Mean Corpuscular Volume 90.6 fL Mean Corpuscular Hemoglobin 30.4 pg Mean Corpuscular Hemoglobin Concent 33.5 g/dl RDW Standard Deviation 48.1 fL RDW Coefficient of Variation 15.1 % Platelet Count 278 K/uL Mean Platelet Volume 10.8 fL Creatinine 0.80 mg/dl Est Creatinine Clear Calc Drug Dose 52.2 ml/min Estimated GFR () 80.1 Estimated GFR (Non- 69.1 Test 05/24/17 07:42 05/24/17 11:37 Bedside Glucose 130 mg/dl 257 mg/dl Imaging: CXR-Unchanging findings of pulmonary vascular congestion. Unchanging findings of interstitial change throughout both hemithoraces. Exam: Gen: sleep no chorea movements lungs course breath sounds CV RRR Current Inpatient Medications Medications (Trade) Dose Ordered Sig/Krish Route Start Time Stop Time Status Last Admin Dose Admin Acetaminophen (Tylenol Tab) 650 mg Q4H PRN PO 05/14/17 14:15 06/13/17 14:14 05/22/17 10:10 650 MG Magnesium Hydroxide (Milk Of Magnesia Susp) 30 ml Q12H PRN PO 05/14/17 14:15 06/13/17 14:14 Ondansetron HCl (Zofran Inj) 4 mg Q6H PRN IV 05/14/17 14:15 06/13/17 14:14 Nitroglycerin (Nitrostat Tab) 0.4 mg UD PRN SL 05/14/17 14:15 06/13/17 14:14 05/21/17 07:53 0.4 MG Insulin Aspart (novoLOG ASPART) SLIDING SCALE If C... ACHS SC 05/14/17 16:30 3/22/18 16:29 05/24/17 09:10 3 UNITS Glucose (Glucose 40% Gel) 15-30 GRAMS 15 GRAMS... UD PRN PO 05/14/17 14:30 06/13/17 14:29 05/17/17 16:39 15 GM Glucose (Glucose Chew Tab) 4-8 Tablets 4 Tabl... UD PRN PO 05/14/17 14:30 06/13/17 14:29 Dextrose (Dextrose 50% 50ML Syringe) 25-50ML OF 50% DW IV FOR... UD PRN IV 05/14/17 14:30 06/13/17 14:29 Glucagon (Glucagon Inj) 1 mg UD PRN SQ 05/14/17 14:30 06/13/17 14:29 Miscellaneous Information (Consult Glycemic Management Pharmacy) 1 ea UD PRN N/A 05/14/17 15:00 06/13/17 14:59 Aspirin (Aspirin Chew) 81 mg DAILY PO 05/15/17 09:00 06/14/17 08:59 05/24/17 08:45 81 MG Duloxetine HCl (Cymbalta Cap) 60 mg DAILY PO 05/15/17 09:00 06/14/17 08:59 05/24/17 08:46 60 MG Levothyroxine Sodium (Synthroid Tab) 88 mcg DAILYBB PO 05/15/17 06:30 06/14/17 06:29 05/24/17 05:53 88 MCG Midodrine (Proamatine Tab) 10 mg TID@0600,1200,1800 PO 05/14/17 18:00 06/13/17 17:59 Future Hold 05/19/17 12:42 10 MG Cholecalciferol (Vitamin D Tab) 1,000 inter.unit DAILY PO 05/15/17 09:00 06/14/17 08:59 05/24/17 08:45 1,000 INTER.UNIT Multivitamins/ Minerals (Multivitamin W/ Minerals Tab) 1 tab BID PO 05/14/17 21:00 06/13/17 20:59 05/24/17 08:45 1 TAB Metoprolol Tartrate (Lopressor Tab) 25 mg BID PO 05/15/17 07:00 06/14/17 06:59 05/24/17 08:45 25 MG Metoprolol Tartrate (Lopressor Iv) 5 mg Q6 PRN IV 05/14/17 18:45 06/13/17 18:44 05/14/17 19:59 5 MG Clopidogrel Bisulfate (plAVix TAB) 75 mg QAM PO 05/14/17 18:45 06/13/17 18:44 05/24/17 08:45 75 MG Sodium Chloride 1,000 ml @ 50 mls/hr Q20H IV 05/19/17 07:15 06/18/17 07:14 05/23/17 20:38 50 MLS/HR Ceftriaxone Sodium 1 gm/ Dextrose 50 ml @ 100 mls/hr Q24H IV 05/21/17 14:00 05/30/17 13:59 05/23/17 14:24 100 MLS/HR Enoxaparin Sodium (Lovenox Inj) 40 mg QAM SQ 05/21/17 09:00 06/20/17 08:59 05/24/17 08:46 40 MG Morphine Sulfate (MoRPHine SULFATE INJ) 2 mg Q3HWA PRN IV 05/21/17 08:00 06/04/17 07:59 05/23/17 15:41 2 MG Al Hydrox/Mg Hydrox/Simethicone (Maalox Max Susp) 30 ml Q6H PRN PO 05/21/17 08:15 06/20/17 08:14 Haloperidol Lactate (Haldol Inj) 2 mg Q6 IV 05/23/17 12:00 06/22/17 11:59 05/24/17 12:29 2 MG Valproate Sodium 500 mg/Dextrose 55 ml @ 55 mls/hr Q12H IV 05/23/17 09:00 06/22/17 08:59 05/24/17 08:45 55 MLS/HR Quetiapine Fumarate (seroQUEL TAB) 12.5 mg AMHS PO 05/23/17 21:00 06/22/17 20:59 05/24/17 08:46 12.5 MG Insulin Glargine (Lantus Solostar Pen) SEE PROTOCOL TEXT QAM SC 05/24/17 09:00 06/23/17 08:59 05/24/17 09:11 12 UNITS Impression 81 year old female with new onset left sided chorea like movement Plan 1. CT head negative for acute findings would be helpful to evaluate for stroke with MRI but patient had pacemaker 2. CK and GFR has improved continue to monitor 3. EEG - read as normal 4. pacemaker interrogated no issues 5. OOB when supervised, continue to help with meals and hydration 6. chorea type movements can be caused by hyperglycemia, hyperthyroid, stroke, lyme. will need further evaluation this is likely stroke. 7. klonopin and gabapentin were tried without improvement in movements 8. repeat CT head as needed 9. carotid doppler no significant stenosis 10. TTE- ASD not assessed 11. cardiology was consulted and her pacemaker was readjusted for movements and restarted metoprolol 12. IV Haldol 2 mg q 6 mg topamax has been stopped and depakote 500 mg q 12h started. seraquel 12.5 mg am/hs. will need to push haldol as tolerated. if failure of medications alternatives would trial Xenazine (Tetrabenazaine) to see if chorea can be controlled. 13. PT/OT for discharge needs and will likely need some rehab prior to returning to her personal care situation 14. continue aspirin 81 mg and plavix 75 mg added, continue for 3 months and then plavix for a lifetime will need follow up in 2-3 weeks after discharge from rehab with Dr Tracie Esposito or Tracie Parks PAC, neurology Pt seen, observed still with essentially unchanged L hemichorea/ballistic movement. Rec stopping depakote, start keppra 500 mg IV twice a day. Discussed with daughter. GERI Esposito MD I have seen and discussed above patient with Dr Tracie Esposito, neurology
[2017-05-24] MEDS: CEFTRIAXONE SOD INJ 1 GM in DEXTROSE 5% ADD-VANTAGE 50ML 50 ML IV SCH (13:45)
--- NOTE | 2017-05-24 17:25 | Progress Note ---
Internal Med Progress Note Date of Service: May 24, 2017. Provider Documentation: SUBJECTIVE: Still having uncontrolled movements of left extremities but ok while sleeping sleeping but arousable denies pain or nausea afebrile no cough OBJECTIVE: Vital Signs-as noted below Exam: General-alert and awake. ENT-normal hearing Neck-no neck masses Lungs-cta b/l no wheezing or crackles Heart-s1 and s2 heard regular no murmurs Abdomen-soft bowel sounds present non tender no distension Extremities-no edema no erythema Neuro-alert and awake spontaneous left extremity movements Lab data as noted below. 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 As not able to take po changed Haldol to iv by neurology Topamax was stopped and Depakote and Seroquel started. If no improvement plan for Keppra. Neurology discussed with Larry and recommends Xenazine but only after all current options are exhausted. currently on iv haldol 2mg q 6hrs and iv keppra daughter ok for palliative care consult mild rhabdomyolysis will f/u labs cpk 385 today on iv fluids. Pulmonary congestion sob and cough on fluids as above will give a dose of Lasix. sob improved chest discomfort yesterday mild elevation of troponin but trending down. could also be from rhabdomyolysis no complaints today elevated leukocytosis may be from stress from the hemiballismus movements vs trauma on Rocephin #4 .will monitor. cx no growth so far.Leukocytosis improved SICK SINUS SYNDROME S/P PACER Tachyarrhythmia vs pacemaker artifacts/error Per Cardiology note 05/15/17: pacemaker s/p device interrogation, device is being confused by her movements and actually firing under its rate responsive program". Metoprolol which patient was not taking at home recent was restarted Diabetes: is on insulin, will monitor. fairly controlled Hypothyroidism history: continue levothyroxine History of Orthostatic hypotension: holding midodrine for now History of Depression: continue Cymbalta DVT Prophylaxis: Lovenox 40 mg daily PT/OT, physical rehabilitation placement Patient's daughter [phone] is concerned about Haldol therapy for the hemiballismus movements causing confusion DVT PROPHYLAXIS Lovenox DISPOSITION monitor in tele to be determined Vital Signs: Date Time Temp Pulse Resp B/P (MAP) Pulse Ox O2 Delivery O2 Flow Rate FiO2 05/24/17 17:15 36.5 63 18 166/64 (98) 99 Room Air 05/24/17 16:00 Room Air 05/24/17 12:00 93 Room Air 05/24/17 11:30 36.6 64 18 165/79 (107) 92 Nasal Cannula 05/24/17 08:30 93 Room Air 05/24/17 07:18 36.8 71 18 179/51 (93) 93 Room Air 05/24/17 04:58 36.8 72 17 163/89 (113) 93 Room Air 05/24/17 04:00 Room Air 05/24/17 00:00 Room Air 05/23/17 23:59 36.4 67 20 149/65 (93) 93 Room Air 05/23/17 20:45 87 130/67 (88) 05/23/17 20:00 Room Air 05/23/17 18:02 36.7 96 20 122/60 (80) 92 Room Air 05/23/17 17:39 144/56 (85) Lab Results: Results Past 24 Hours Test 05/23/17 17:35 05/23/17 20:37 05/24/17 06:45 05/24/17 07:42 Range/Units Bedside Glucose 81 85 130 70-90 mg/dl White Blood Count 10.16 4.8-10.8 K/uL Red Blood Count 3.92 4.2-5.4 M/uL Hemoglobin 11.9 12.0-16.0 g/dL Hematocrit 35.5 37-47 % Mean Corpuscular Volume 90.6 80-100 fL Mean Corpuscular Hemoglobin 30.4 25-34 pg Mean Corpuscular Hemoglobin Concent 33.5 32-36 g/dl RDW Standard Deviation 48.1 36.4-46.3 fL RDW Coefficient of Variation 15.1 11.5-14.5 % Platelet Count 278 130-400 K/uL Mean Platelet Volume 10.8 7.4-10.4 fL Creatinine 0.80 0.60-1.20 mg/dl Est Creatinine Clear Calc Drug Dose 52.2 ml/min Estimated GFR () 80.1 Estimated GFR (Non- 69.1 Test 05/24/17 11:37 05/24/17 16:36 Range/Units Bedside Glucose 257 137 70-90 mg/dl
[2017-05-24] MEDS: SODIUM CHLORIDE 0.9% 1000ML 1,000 ML IV SCH (17:53)
[2017-05-24] MEDS: LEVETIRACETAM IV 500 MG in DEXTROSE 5% 100ML 100 ML IV SCH (20:12)
[2017-05-25] VITALS (11 sets, daily range): BP systolic 118–149; BP diastolic 44–92; PULSE 60–89; TEMP 36–37; O2SAT 93–98
[2017-05-25] MEDS: LEVOTHYROXINE 88 MCG TAB PO SCH (05:51)
[2017-05-25] MEDS: HALOPERIDOL LACTATE 5 MG/ML 1 ML VIAL IV SCH ×3 (06:04→18:08)
[2017-05-25 07:27] LABS: BASO % 0.2 %; BASO ABS # 0.02 K/uL (0-0.2); EOS % 7.3 %; EOS ABS # 0.62 K/uL (0-0.5); HEMATOCRIT 37.2 % (37-47); HEMOGLOBIN 11.9 g/dL (12.0-16.0); IG# 0.03 K/uL (0.00-0.02); LYMPH % 11.1 %; LYMPH ABS # 0.94 K/uL (1.2-3.4); MEAN CELL VOLUME 92.1 fL (80-100); MEAN CORPUSCULAR HEMOGLOBIN 29.5 pg (25-34); MEAN PLATELET VOLUME 10.9 fL (7.4-10.4); MONO ABS # 0.68 K/uL (0.11-0.59); NEUT ABS # 6.19 K/uL (1.4-6.5); PLATELET COUNT 292 K/uL (130-400); RED CELL DISTRIBUTION WIDTH CV 15.2 % (11.5-14.5); RED CELL DISTRIBUTION WIDTH SD 50.3 fL (36.4-46.3); WHITE BLOOD COUNT 8.48 K/uL (4.8-10.8)
[2017-05-25 08:06] LABS: CALCIUM 8.7 mg/dl (8.5-10.1); CREATININE 0.77 mg/dl (0.60-1.20); POTASSIUM 4.1 mmol/L (3.5-5.1)
[2017-05-25] MEDS: ASPIRIN 81 MG CHEW PO SCH ×2 (08:23→09:00)
[2017-05-25] MEDS: METOPROLOL TARTRATE 25 MG TAB PO SCH ×3 (08:23→20:42)
[2017-05-25] MEDS: CHOLECALCIFEROL 1000 INTER.UNIT TAB PO SCH ×2 (08:24→09:00)
[2017-05-25] MEDS: CEROVITE ADV FORMULA TAB PO SCH ×3 (08:24→20:43)
[2017-05-25] MEDS: QUETIAPINE FUMARATE 25 MG TAB PO SCH ×3 (08:24→20:49)
[2017-05-25] MEDS: CLOPIDOGREL BISULFATE 75 MG TAB PO SCH ×2 (08:24→09:00)
[2017-05-25] MEDS: DULOXETINE HCL 60 MG CAP PO SCH ×2 (08:24→09:00)
[2017-05-25] MEDS: ENOXAPARIN 40 MG/0.4 ML SYR SQ SCH ×3 (08:25→09:47)
[2017-05-25] MEDS: INSULIN ASPART 100 UNITS/ML 3 ML PEN SC SCH ×4 (08:38→20:50)
[2017-05-25] MEDS: LEVETIRACETAM IV 500 MG in DEXTROSE 5% 100ML 100 ML IV SCH (08:43)
[2017-05-25] MEDS: INSULIN GLARGINE SOLOSTAR 100 UNITS/ML 3 ML PEN SC SCH (08:45)
[2017-05-25] MEDS: NITROGLYCERIN 0.4 MG SL PER TAB CHARGE SL PRN (09:52)
--- NOTE | 2017-05-25 12:27 | NEUROLOGY CONSULTATION ---
DATE OF CONSULTATION: 05/25/2017 HISTORY OF PRESENT ILLNESS: I am seeing Mrs. 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 Currently, she is on Haldol 2 mg intravenously q. 6, Keppra 500 b.i.d. having received 2 doses, Seroquel 12.5 b.i.d. She sleeps well. Nursing is not convinced that there has been any change in her movement with Keppra. OBJECTIVE: On exam, she is sleepy, but arousable. There is a moderate amount of choreoathetotic movement of the left upper extremity and left lower extremity. She is oriented to [place]. There is no obvious facial asymmetry. Her strength seems about the same. VITAL SIGNS: 36.5, 65, 20, 128/44, 98%. 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 PLAN: Recommend increasing Keppra to 750 b.i.d., no change in Haldol or Seroquel at present. I have the sense that she may be mildly better, but I think it is certainly unclear. When I spoke to her daughter yesterday, I discussed the poor prognosis. I would be an advocate for the patient in terms of placement for palliative care or hospice care. Next maneuver will depend on the response to Keppra. One option would be to put her on some tetrabenazine as well or increase the Seroquel. Will follow with you. GIO
[2017-05-25] MEDS: SODIUM CHLORIDE 0.9% 1000ML 1,000 ML IV SCH (12:50)
[2017-05-25] MEDS: CEFTRIAXONE SOD INJ 1 GM in DEXTROSE 5% ADD-VANTAGE 50ML 50 ML IV SCH (14:36)
--- NOTE | 2017-05-25 14:58 | Pharmacy Progress Note ---
Glycemic: Assessment & Plan Date of Service May 25, 2017. Assessment & Plan The patient is currently receiving 21-30 units of insulin per day. BSGs ranging 135 - 262 mg/dl over the past 24hrs. * Basal insulin: Lantus 16 units every 24 hours given in the morning * Correctional Insulin: Novolog Correction per scale ACHS Goal Range: Low 110 mg/dL - High 140 mg/dL Correction Factor: 30 mg/dL/unit * Prandial insulin: Per carb ratio of 1 unit per 12 grams CHO consumed BSGs continue to improve, no changes needed to inpatient regimen at this time. Pharmacy will continue to monitor patient daily and write orders per [facility] inpatient glycemic control protocol. Thanks. * Please note that the plan above was derived based on current level of insulin resistance and hospital stress. These recommendations are appropriate for inpatient admission only. Plan of care upon discharge will need to be reassessed to avoid potential outpatient hypo/hyperglycemia.
--- NOTE | 2017-05-25 16:27 | Progress Note ---
Internal Med Progress Note Date of Service: May 25, 2017. Provider Documentation: SUBJECTIVE: morning complained of some chest pain but later denies it movements of left extremity somewhat better today afebrile denies sob or cough no nausea OBJECTIVE: Vital Signs-as noted below Exam: General-alert and awake. ENT-normal hearing Neck-no neck masses Lungs-cta b/l no wheezing or crackles Heart-s1 and s2 heard regular no murmurs Abdomen-soft bowel sounds present non tender no distension Extremities-no edema no erythema Neuro-alert and awake spontaneous left extremity movements Lab data as noted below. 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 As not able to take po changed Haldol to iv by neurology Topamax was stopped and Depakote and Seroquel started. If no improvement plan for Keppra. Neurology discussed with Larry and recommends Xenazine but only after all current options are exhausted. currently on iv haldol 2mg q 6hrs and iv keppra daughter ok for palliative care consult slightly better today- continue same mild rhabdomyolysis will f/u labs resolved will stop fluids Pulmonary congestion sob and cough on fluids as above will give a dose of Lasix. sob improved chest discomfort mild elevation of troponin but trending down. could also be from rhabdomyolysis will monitor elevated leukocytosis may be from stress from the hemiballismus movements vs trauma on Rocephin #5 .will monitor. cx no growth so far.Leukocytosis improved will d/c abx tomorrow SICK SINUS SYNDROME S/P PACER Tachyarrhythmia vs pacemaker artifacts/error Per Cardiology note 05/15/17: pacemaker s/p device interrogation, device is being confused by her movements and actually firing under its rate responsive program". Metoprolol which patient was not taking at home recent was restarted Diabetes: is on insulin, will monitor. fairly controlled 135/199/262/161 Hypothyroidism history: continue levothyroxine History of Orthostatic hypotension: holding midodrine for now History of Depression: continue Cymbalta DVT Prophylaxis: Lovenox 40 mg daily PT/OT, physical rehabilitation placement Patient's daughter [phone] is concerned about Haldol therapy for the hemiballismus movements causing confusion DVT PROPHYLAXIS Lovenox DISPOSITION monitor in tele to be determined Vital Signs: Date Time Temp Pulse Resp B/P (MAP) Pulse Ox O2 Delivery O2 Flow Rate FiO2 05/25/17 15:20 37.0 69 18 149/82 (104) 94 Room Air 05/25/17 12:15 Room Air 05/25/17 11:53 36.9 79 18 118/61 (80) 96 Room Air 05/25/17 09:20 70 20 142/87 (105) 97 Room Air 05/25/17 08:40 93 Room Air 05/25/17 07:52 36.5 65 20 128/44 (72) 98 Room Air 05/25/17 04:00 Room Air 05/25/17 04:00 36.8 60 22 142/92 (109) 94 Room Air 05/25/17 00:00 Room Air 05/24/17 23:29 36.2 61 18 135/66 (89) 96 Room Air 05/24/17 20:00 Room Air 05/24/17 19:05 36.5 68 18 166/74 (104) 95 Room Air 05/24/17 17:15 36.5 63 18 166/64 (98) 99 Room Air Lab Results: Results Past 24 Hours Test 05/24/17 16:36 05/24/17 20:19 05/25/17 07:19 05/25/17 07:38 Range/Units Bedside Glucose 137 135 262 70-90 mg/dl White Blood Count 8.48 4.8-10.8 K/uL Red Blood Count 4.04 4.2-5.4 M/uL Hemoglobin 11.9 12.0-16.0 g/dL Hematocrit 37.2 37-47 % Mean Corpuscular Volume 92.1 80-100 fL Mean Corpuscular Hemoglobin 29.5 25-34 pg Mean Corpuscular Hemoglobin Concent 32.0 32-36 g/dl Platelet Count 292 130-400 K/uL Mean Platelet Volume 10.9 7.4-10.4 fL Neutrophils (%) (Auto) 73.0 % Lymphocytes (%) (Auto) 11.1 % Monocytes (%) (Auto) 8.0 % Eosinophils (%) (Auto) 7.3 % Basophils (%) (Auto) 0.2 % Neutrophils # (Auto) 6.19 1.4-6.5 K/uL Lymphocytes # (Auto) 0.94 1.2-3.4 K/uL Monocytes # (Auto) 0.68 0.11-0.59 K/uL Eosinophils # (Auto) 0.62 0-0.5 K/uL Basophils # (Auto) 0.02 0-0.2 K/uL RDW Standard Deviation 50.3 36.4-46.3 fL RDW Coefficient of Variation 15.2 11.5-14.5 % Immature Granulocyte % (Auto) 0.4 % Immature Granulocyte # (Auto) 0.03 0.00-0.02 K/uL Sodium Level 142 136-145 mmol/L Potassium Level 4.1 3.5-5.1 mmol/L Chloride Level 109 98-107 mmol/L Carbon Dioxide Level 26 21-32 mmol/L Anion Gap 7.0 3-11 mmol/L Blood Urea Nitrogen 21 7-18 mg/dl Creatinine 0.77 0.60-1.20 mg/dl Est Creatinine Clear Calc Drug Dose 54.6 ml/min Estimated GFR () 83.9 Estimated GFR (Non- 72.4 BUN/Creatinine Ratio 26.8 10-20 Random Glucose 199 70-99 mg/dl Calcium Level 8.7 8.5-10.1 mg/dl Magnesium Level 2.2 1.8-2.4 mg/dl Total Creatine Kinase 154 26-192 U/L Test 05/25/17 09:26 05/25/17 11:51 Range/Units Troponin I 0.034 0-0.045 ng/ml Bedside Glucose 161 70-90 mg/dl
[2017-05-25] MEDS: LEVETIRACETAM IV 750 MG in DEXTROSE 5% 100ML 100 ML IV SCH (20:42)
[2017-05-26] VITALS (8 sets, daily range): BP systolic 128–173; BP diastolic 51–77; PULSE 59–75; TEMP 36.2–37; O2SAT 93–96
[2017-05-26] MEDS: HALOPERIDOL LACTATE 5 MG/ML 1 ML VIAL IV SCH ×5 (00:09→23:54)
[2017-05-26] MEDS: LEVOTHYROXINE 88 MCG TAB PO SCH (06:05)
[2017-05-26 07:38] LABS: BASO % 0.3 %; BASO ABS # 0.02 K/uL (0-0.2); EOS % 6.9 %; EOS ABS # 0.55 K/uL (0-0.5); HEMATOCRIT 35.7 % (37-47); HEMOGLOBIN 11.7 g/dL (12.0-16.0); IG# 0.01 K/uL (0.00-0.02); LYMPH % 12.8 %; LYMPH ABS # 1.02 K/uL (1.2-3.4); MEAN CORPUSCULAR HEMOGLOBIN 30.2 pg (25-34); MEAN CORPUSCULAR HGB CONC 32.8 g/dl (32-36); MEAN PLATELET VOLUME 10.9 fL (7.4-10.4); MONO % 10.5 %; MONO ABS # 0.84 K/uL (0.11-0.59); NEUT % 69.4 %; NEUT ABS # 5.55 K/uL (1.4-6.5); PLATELET COUNT 290 K/uL (130-400); RED CELL DISTRIBUTION WIDTH CV 15.4 % (11.5-14.5); RED CELL DISTRIBUTION WIDTH SD 50.3 fL (36.4-46.3); WHITE BLOOD COUNT 7.99 K/uL (4.8-10.8)
[2017-05-26 08:09] LABS: CREATININE 0.74 mg/dl (0.60-1.20); POTASSIUM 3.6 mmol/L (3.5-5.1)
[2017-05-26] MEDS: INSULIN ASPART 100 UNITS/ML 3 ML PEN SC SCH ×4 (09:00→21:45)
[2017-05-26] MEDS: LEVETIRACETAM IV 750 MG in DEXTROSE 5% 100ML 100 ML IV SCH ×2 (09:07→21:39)
[2017-05-26] MEDS: METOPROLOL TARTRATE 25 MG TAB PO SCH ×2 (09:08→21:39)
[2017-05-26] MEDS: CHOLECALCIFEROL 1000 INTER.UNIT TAB PO SCH (09:08)
[2017-05-26] MEDS: QUETIAPINE FUMARATE 25 MG TAB PO SCH (09:08)
[2017-05-26] MEDS: DULOXETINE HCL 60 MG CAP PO SCH (09:08)
[2017-05-26] MEDS: SODIUM CHLORIDE 0.9% 1000ML 1,000 ML IV SCH (09:11)
[2017-05-26] MEDS: INSULIN GLARGINE SOLOSTAR 100 UNITS/ML 3 ML PEN SC SCH (09:16)
[2017-05-26] MEDS: ENOXAPARIN 40 MG/0.4 ML SYR SQ SCH ×2 (09:36→09:38)
[2017-05-26] MEDS: ASPIRIN 81 MG CHEW PO SCH (09:36)
[2017-05-26] MEDS: CEROVITE ADV FORMULA TAB PO SCH ×2 (09:36→21:39)
[2017-05-26] MEDS: CLOPIDOGREL BISULFATE 75 MG TAB PO SCH (09:37)
[2017-05-26] MEDS: CEFTRIAXONE SOD INJ 1 GM in DEXTROSE 5% ADD-VANTAGE 50ML 50 ML IV SCH (13:53)
--- NOTE | 2017-05-26 13:58 | Pharmacy Progress Note ---
Pharmacy Glycemic Short Note 2 Date of Service May 26, 2017. Outpatient Anti-diabetic Regimen: * Lantus 27 units SQ qAM, 11 units SQ qPM * Humalog 5 units TID plus sliding scale * A1c = 7.9% 05/15/17 (9.7% on 08/29/16) ASSESSMENT: * BSGs over the past 24hrs: 262, 161, 71, 137, 97, 128 * Pt has been receiving ~ 25 units of insulin per day * 12-16 units of basal and ~9 units of bolus insulin. PO intake is sporadic. * Fasting BSG of 97 mg/dL is below goal. Will reduce basal insulin dose. * Post-prandial BSGs are at goal. No changes to bolus insulin. PLAN FOR INPATIENT GLYCEMIC CONTROL: * Basal insulin * Lantus 14 units SQ daily in AM * Bolus Insulin * NovoLog per scale ACHS or Q6hrs while NPO * Goal Range: Low 110 mg/dL - High 140 mg/dL * Correction Factor: 30 mg/dL/unit * Nutritional / Prandial insulin per carb ratio of 1 unit per 12 grams CHO consumed PLAN FOR DISCHARGE: * Current A1c (7.9%) reflects acceptable glycemic control as an outpatient ( goal range of 7.6-8.0 % per the Elements of Diabetes Care Scoring Scale) * Expect that patient may resume home regimen on discharge. Current inpatient needs are significantly less. I suspect this may be due to dietary differences. Patient's outpatient regimen is highly basal weighted, therefore Lantus dose is probably covering meals also. May benefit from redistributing regimen to goal of 50% basal and 50% bolus. Thank you.
[2017-05-26] MEDS ORDERED: POTASSIUM CHLORIDE 10 MEQ TABCR PO STA (16:29)
[2017-05-26] MEDS ORDERED: POLYETHYLENE (MIRALAX) 17 GM PACK PO PRN (16:30)
--- NOTE | 2017-05-26 16:46 | Progress Note ---
Internal Med Progress Note Date of Service: May 26, 2017. Provider Documentation: SUBJECTIVE: some what drowsy afebrile denies any pain or nausea or cough afebrile no bowel movement for last few days OBJECTIVE: Vital Signs-as noted below Exam: General-alert and awake. ENT-normal hearing Neck-no neck masses Lungs-cta b/l no wheezing or crackles Heart-s1 and s2 heard regular no murmurs Abdomen-soft bowel sounds present non tender no distension Extremities-no edema no erythema Neuro-alert and awake spontaneous left extremity movements Lab data as noted below. 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 As not able to take po changed Haldol to iv by neurology Topamax was stopped and Depakote and Seroquel started. If no improvement plan for Keppra. Neurology discussed with Larry and recommends Xenazine but only after all current options are exhausted. currently on iv haldol 2mg q 6hrs and iv keppra daughter ok for palliative care consult to continue same for now mild rhabdomyolysis will f/u labs resolved stopped fluids Pulmonary congestion sob and cough on fluids as above will give a dose of Lasix. sob improved chest discomfort mild elevation of troponin but trending down. could also be from rhabdomyolysis will monitor elevated leukocytosis may be from stress from the hemiballismus movements vs trauma on Rocephin #6 .will monitor. cx no growth so far.Leukocytosis improved will d/c abx tomorrow SICK SINUS SYNDROME S/P PACER Tachyarrhythmia vs pacemaker artifacts/error Per Cardiology note 05/15/17: pacemaker s/p device interrogation, device is being confused by her movements and actually firing under its rate responsive program". Metoprolol which patient was not taking at home recent was restarted Diabetes: is on insulin, will monitor. fairly controlled 93/97/128/159 Hypothyroidism history: continue levothyroxine History of Orthostatic hypotension: holding midodrine for now History of Depression: continue Cymbalta DVT Prophylaxis: Lovenox 40 mg daily PT/OT, physical rehabilitation placement Patient's daughter [phone] is concerned about Haldol therapy for the hemiballismus movements causing confusion DVT PROPHYLAXIS Lovenox DISPOSITION monitor in tele to be determined Vital Signs: Date Time Temp Pulse Resp B/P (MAP) Pulse Ox O2 Delivery O2 Flow Rate FiO2 05/26/17 16:14 96 Room Air 05/26/17 15:18 37.0 65 18 152/77 (102) 96 Room Air 05/26/17 12:00 Room Air 05/26/17 11:35 36.2 62 18 143/63 (89) 95 Room Air 05/26/17 08:30 Room Air 05/26/17 07:16 36.6 68 18 133/51 (78) 96 Room Air 05/26/17 04:13 36.7 59 18 128/65 (86) 95 Room Air 05/26/17 04:00 Room Air 05/25/17 23:35 Room Air 05/25/17 23:32 36.0 61 20 140/57 (84) 93 Room Air 05/25/17 20:41 89 131/55 (80) 05/25/17 20:00 94 Room Air 05/25/17 19:15 36.5 74 19 148/58 (88) 93 Room Air Lab Results: Results Past 24 Hours Test 05/25/17 20:13 05/26/17 07:06 05/26/17 07:46 05/26/17 11:41 Range/Units Bedside Glucose 137 97 128 70-90 mg/dl White Blood Count 7.99 4.8-10.8 K/uL Red Blood Count 3.88 4.2-5.4 M/uL Hemoglobin 11.7 12.0-16.0 g/dL Hematocrit 35.7 37-47 % Mean Corpuscular Volume 92.0 80-100 fL Mean Corpuscular Hemoglobin 30.2 25-34 pg Mean Corpuscular Hemoglobin Concent 32.8 32-36 g/dl Platelet Count 290 130-400 K/uL Mean Platelet Volume 10.9 7.4-10.4 fL Neutrophils (%) (Auto) 69.4 % Lymphocytes (%) (Auto) 12.8 % Monocytes (%) (Auto) 10.5 % Eosinophils (%) (Auto) 6.9 % Basophils (%) (Auto) 0.3 % Neutrophils # (Auto) 5.55 1.4-6.5 K/uL Lymphocytes # (Auto) 1.02 1.2-3.4 K/uL Monocytes # (Auto) 0.84 0.11-0.59 K/uL Eosinophils # (Auto) 0.55 0-0.5 K/uL Basophils # (Auto) 0.02 0-0.2 K/uL RDW Standard Deviation 50.3 36.4-46.3 fL RDW Coefficient of Variation 15.4 11.5-14.5 % Immature Granulocyte % (Auto) 0.1 % Immature Granulocyte # (Auto) 0.01 0.00-0.02 K/uL Sodium Level 143 136-145 mmol/L Potassium Level 3.6 3.5-5.1 mmol/L Chloride Level 110 98-107 mmol/L Carbon Dioxide Level 26 21-32 mmol/L Anion Gap 7.0 3-11 mmol/L Blood Urea Nitrogen 15 7-18 mg/dl Creatinine 0.74 0.60-1.20 mg/dl Est Creatinine Clear Calc Drug Dose 56.8 ml/min Estimated GFR () 88.1 Estimated GFR (Non- 76.0 BUN/Creatinine Ratio 20.6 10-20 Random Glucose 93 70-99 mg/dl Calcium Level 9.0 8.5-10.1 mg/dl Magnesium Level 2.3 1.8-2.4 mg/dl Test 05/26/17 16:17 Range/Units Bedside Glucose 159 70-90 mg/dl
[2017-05-27] VITALS (10 sets, daily range): BP systolic 124–165; BP diastolic 63–83; PULSE 68–87; TEMP 36.4–37.2; O2SAT 91–95
[2017-05-27] MEDS: SODIUM CHLORIDE 0.9% 1000ML 1,000 ML IV SCH ×2 (03:17→23:36)
[2017-05-27] MEDS: HALOPERIDOL LACTATE 5 MG/ML 1 ML VIAL IV SCH ×4 (05:40→23:36)
[2017-05-27] MEDS: LEVOTHYROXINE 88 MCG TAB PO SCH (05:41)
[2017-05-27 07:07] LABS: BASO % 0.3 %; BASO ABS # 0.02 K/uL (0-0.2); EOS % 6.8 %; EOS ABS # 0.49 K/uL (0-0.5); HEMATOCRIT 32.6 % (37-47); HEMOGLOBIN 10.7 g/dL (12.0-16.0); IG# 0.02 K/uL (0.00-0.02); LYMPH % 12.7 %; LYMPH ABS # 0.92 K/uL (1.2-3.4); MEAN CELL VOLUME 91.6 fL (80-100); MEAN CORPUSCULAR HEMOGLOBIN 30.1 pg (25-34); MEAN CORPUSCULAR HGB CONC 32.8 g/dl (32-36); MEAN PLATELET VOLUME 10.7 fL (7.4-10.4); MONO % 11.9 %; MONO ABS # 0.86 K/uL (0.11-0.59); NEUT ABS # 4.92 K/uL (1.4-6.5); PLATELET COUNT 285 K/uL (130-400); RED CELL DISTRIBUTION WIDTH CV 15.6 % (11.5-14.5); RED CELL DISTRIBUTION WIDTH SD 51.8 fL (36.4-46.3); WHITE BLOOD COUNT 7.23 K/uL (4.8-10.8)
[2017-05-27 07:25] LABS: CALCIUM 8.5 mg/dl (8.5-10.1); CREATININE 0.62 mg/dl (0.60-1.20); POTASSIUM 3.7 mmol/L (3.5-5.1)
--- NOTE | 2017-05-27 07:41 | PROGRESS NOTE ---
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 I have increased the Keppra 750 b.i.d. She remains on Haldol 2 mg 4 times a day and some Seroquel. She has been intermittently been refusing meds p.r.n. She has also tried Topamax, gabapentin, clonazepam. It is unclear that there has been any improvement, although with the addition of Keppra, I did increase the dose last evening, so she has only just now received the second dose. She has been intermittently confused. PHYSICAL EXAMINATION: GENERAL: She is mostly sleeping, when awakened, there is some hemichorea hemiballistic movement of the left arm, maybe less intense, but she is not entirely awake. PLAN: Her daughter will monitor over the next couple of hours. She is going to stay after the next dose of Haldol to see if Haldol diminishes the movement while the patient is awake. We will see about adjusting the Keppra, I have stopped the Seroquel because the patient is refusing p.o. meds intermittently. I have consulted with pharmacy, will order tetrabenazine 12.5 mg daily for a week and then 12.5 b.i.d., we may increase it more frequently than that. Will need to monitor the QT interval and I have ordered daily EKGs. Her prognosis is poor. GERI Esposito MD [facility]ITALHenry
[2017-05-27] MEDS: ASPIRIN 81 MG CHEW PO SCH (08:01)
[2017-05-27] MEDS: CLOPIDOGREL BISULFATE 75 MG TAB PO SCH (08:01)
[2017-05-27] MEDS: CHOLECALCIFEROL 1000 INTER.UNIT TAB PO SCH (08:01)
[2017-05-27] MEDS: DULOXETINE HCL 60 MG CAP PO SCH (08:01)
[2017-05-27] MEDS: METOPROLOL TARTRATE 25 MG TAB PO SCH ×2 (08:02→21:04)
[2017-05-27] MEDS: CEROVITE ADV FORMULA TAB PO SCH ×2 (08:08→21:03)
[2017-05-27] MEDS: LEVETIRACETAM IV 750 MG in DEXTROSE 5% 100ML 100 ML IV SCH (08:08)
[2017-05-27] MEDS: ENOXAPARIN 40 MG/0.4 ML SYR SQ SCH (08:09)
[2017-05-27] MEDS: INSULIN ASPART 100 UNITS/ML 3 ML PEN SC SCH ×4 (08:18→21:00)
[2017-05-27] MEDS: INSULIN GLARGINE SOLOSTAR 100 UNITS/ML 3 ML PEN SC SCH (08:18)
--- NOTE | 2017-05-27 12:27 | Progress Note ---
Internal Med Progress Note Date of Service: May 27, 2017. Provider Documentation: SUBJECTIVE: somewhat confused says she is searching for her missed best friend denies any pain says he ad stroke few days back and was in [facility] and having this hand movement since then.Surprised that she is still in [facility] afebrile denies nausea or sob OBJECTIVE: Vital Signs-as noted below Exam: General-alert and awake. ENT-normal hearing Neck-no neck masses Lungs-cta b/l no wheezing or crackles Heart-s1 and s2 heard regular no murmurs Abdomen-soft bowel sounds present non tender no distension Extremities-no edema no erythema Neuro-alert and awake spontaneous left extremity movements Lab data as noted below. ASSESSMENT & PLAN: 81F presented with left extremity spontaneous movements. Numerous meds tired but unsuccessful. 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 As not able to take po changed Haldol to iv by neurology Topamax was stopped and Depakote and Seroquel started. If no improvement plan for Keppra. Neurology discussed with Larry and recommends Xenazine but only after all current options are exhausted. currently on iv haldol 2mg q 6hrs and iv keppra 750mg bid daughter ok for palliative care consult neurology planning for tetrabenazine- needs to monitor ekg for qt prolongation If tghis new medication doenot work family ok for [place] [facility] as per palliative care mild rhabdomyolysis will f/u labs resolved still on gentle fluids Pulmonary congestion sob and cough on fluids as above will give a dose of Lasix. sob improved on gentle fluids will monitor chest discomfort mild elevation of troponin but trending down. could also be from rhabdomyolysis no complaints now elevated leukocytosis may be from stress from the hemiballismus movements vs trauma on Rocephin #6 .will monitor. cx no growth so far.Leukocytosis improved will d/c abx today SICK SINUS SYNDROME S/P PACER Tachyarrhythmia vs pacemaker artifacts/error Per Cardiology note 05/15/17: pacemaker s/p device interrogation, device is being confused by her movements and actually firing under its rate responsive program". Metoprolol which patient was not taking at home recent was restarted Diabetes: is on insulin, will monitor. fairly controlled 143/135/155/165 Hypothyroidism history: continue levothyroxine History of Orthostatic hypotension: holding midodrine for now History of Depression: continue Cymbalta DVT Prophylaxis: Lovenox 40 mg daily PT/OT, physical rehabilitation placement Patient's daughter [phone] is concerned about Haldol therapy for the hemiballismus movements causing confusion DVT PROPHYLAXIS Lovenox DISPOSITION monitor in tele to be determined Vital Signs: Date Time Temp Pulse Resp B/P (MAP) Pulse Ox O2 Delivery O2 Flow Rate FiO2 05/27/17 16:00 92 Room Air 05/27/17 15:33 36.8 87 20 124/63 (83) 92 Room Air 05/27/17 12:00 Room Air 05/27/17 11:40 37.0 73 18 151/63 (92) 91 Room Air 05/27/17 08:15 Room Air 05/27/17 08:09 36.4 74 18 165/79 (107) 93 Room Air 05/27/17 04:00 95 Room Air 05/27/17 02:23 36.8 68 19 161/68 (99) 95 Room Air 05/27/17 00:00 95 Room Air 05/26/17 23:42 36.8 75 19 150/64 (92) 93 Room Air 05/26/17 20:00 95 Room Air 05/26/17 19:54 36.7 62 17 173/66 (101) 95 Room Air Lab Results: Results Past 24 Hours Test 05/26/17 20:10 05/27/17 06:19 05/27/17 07:40 05/27/17 11:49 Range/Units Bedside Glucose 143 155 165 70-90 mg/dl White Blood Count 7.23 4.8-10.8 K/uL Red Blood Count 3.56 4.2-5.4 M/uL Hemoglobin 10.7 12.0-16.0 g/dL Hematocrit 32.6 37-47 % Mean Corpuscular Volume 91.6 80-100 fL Mean Corpuscular Hemoglobin 30.1 25-34 pg Mean Corpuscular Hemoglobin Concent 32.8 32-36 g/dl Platelet Count 285 130-400 K/uL Mean Platelet Volume 10.7 7.4-10.4 fL Neutrophils (%) (Auto) 68.0 % Lymphocytes (%) (Auto) 12.7 % Monocytes (%) (Auto) 11.9 % Eosinophils (%) (Auto) 6.8 % Basophils (%) (Auto) 0.3 % Neutrophils # (Auto) 4.92 1.4-6.5 K/uL Lymphocytes # (Auto) 0.92 1.2-3.4 K/uL Monocytes # (Auto) 0.86 0.11-0.59 K/uL Eosinophils # (Auto) 0.49 0-0.5 K/uL Basophils # (Auto) 0.02 0-0.2 K/uL RDW Standard Deviation 51.8 36.4-46.3 fL RDW Coefficient of Variation 15.6 11.5-14.5 % Immature Granulocyte % (Auto) 0.3 % Immature Granulocyte # (Auto) 0.02 0.00-0.02 K/uL Sodium Level 141 136-145 mmol/L Potassium Level 3.7 3.5-5.1 mmol/L Chloride Level 109 98-107 mmol/L Carbon Dioxide Level 22 21-32 mmol/L Anion Gap 10.0 3-11 mmol/L Blood Urea Nitrogen 14 7-18 mg/dl Creatinine 0.62 0.60-1.20 mg/dl Est Creatinine Clear Calc Drug Dose 68.7 ml/min Estimated GFR () 98.0 Estimated GFR (Non- 84.6 BUN/Creatinine Ratio 23.3 10-20 Random Glucose 135 70-99 mg/dl Calcium Level 8.5 8.5-10.1 mg/dl Magnesium Level 2.1 1.8-2.4 mg/dl Test 05/27/17 16:20 Range/Units Bedside Glucose 113 70-90 mg/dl
[2017-05-27] MEDS: CEFTRIAXONE SOD INJ 1 GM in DEXTROSE 5% ADD-VANTAGE 50ML 50 ML IV SCH (13:49)
--- NOTE | 2017-05-27 14:48 | Neurology Progress Notes ---
Neurology Progress Note Date of Service May 27, 2017. Rosaline Vo is a 81 year old female who started having left sided movement which she is unable to control. She has a PMH DM, CAD with bipass x 4 2001, pacemaker , orthostatic hypotension,dementia who states she started having issues with movement yesterday. she states she has always had movement at night with her feet but the arm was never effected. Her daughter states they gave her ativan in the ED which put her to sleep and the only movement at that time was her left foot. She denies any new medications but does say she has not felt well lately and does get alot of UTI's. She states her gait is off and she feel unsteady. denies CP, SOB, abdominal pain, numbness tingling, vision changes, N, V, bowel or bladder symptoms. She is lying in bed sleeping OT and PT have tried working with her and nursing said she was OOB to chair this am but someone had to be there with her because she has a hard time staying in chair. She is more calm with sleeping and she is still refusing the haldol periodically. she is very restless and lethargic. she had CP this am and was given ntg. Her troponin was slightly elevated. She ate some of her breakfast this am and all of her lunch which she fed herself. Currently she has left sided chorea movements which slow at time but appear very rhythmic. She states she is doing fine. Nursing reports daughter wanted to make sure neurology knows Haldol given stopped the chorea in left arm but she was unable to use right arm for a period of time. Objective Date Time Temp Pulse Resp B/P (MAP) Pulse Ox O2 Delivery O2 Flow Rate FiO2 05/27/17 12:00 Room Air 05/27/17 11:40 37.0 73 18 151/63 (92) 91 Room Air 05/27/17 08:15 Room Air 05/27/17 08:09 36.4 74 18 165/79 (107) 93 Room Air 05/27/17 04:00 95 Room Air 05/27/17 02:23 36.8 68 19 161/68 (99) 95 Room Air 05/27/17 00:00 95 Room Air 05/26/17 23:42 36.8 75 19 150/64 (92) 93 Room Air 05/26/17 20:00 95 Room Air 05/26/17 19:54 36.7 62 17 173/66 (101) 95 Room Air 05/26/17 16:14 96 Room Air 05/26/17 15:18 37.0 65 18 152/77 (102) 96 Room Air Last 24 Hours Test 05/26/17 16:17 05/26/17 20:10 05/27/17 06:19 05/27/17 07:40 Bedside Glucose 159 mg/dl 143 mg/dl 155 mg/dl White Blood Count 7.23 K/uL Red Blood Count 3.56 M/uL Hemoglobin 10.7 g/dL Hematocrit 32.6 % Mean Corpuscular Volume 91.6 fL Mean Corpuscular Hemoglobin 30.1 pg Mean Corpuscular Hemoglobin Concent 32.8 g/dl Platelet Count 285 K/uL Mean Platelet Volume 10.7 fL Neutrophils (%) (Auto) 68.0 % Lymphocytes (%) (Auto) 12.7 % Monocytes (%) (Auto) 11.9 % Eosinophils (%) (Auto) 6.8 % Basophils (%) (Auto) 0.3 % Neutrophils # (Auto) 4.92 K/uL Lymphocytes # (Auto) 0.92 K/uL Monocytes # (Auto) 0.86 K/uL Eosinophils # (Auto) 0.49 K/uL Basophils # (Auto) 0.02 K/uL RDW Standard Deviation 51.8 fL RDW Coefficient of Variation 15.6 % Immature Granulocyte % (Auto) 0.3 % Immature Granulocyte # (Auto) 0.02 K/uL Sodium Level 141 mmol/L Potassium Level 3.7 mmol/L Chloride Level 109 mmol/L Carbon Dioxide Level 22 mmol/L Anion Gap 10.0 mmol/L Blood Urea Nitrogen 14 mg/dl Creatinine 0.62 mg/dl Est Creatinine Clear Calc Drug Dose 68.7 ml/min Estimated GFR () 98.0 Estimated GFR (Non- 84.6 BUN/Creatinine Ratio 23.3 Random Glucose 135 mg/dl Calcium Level 8.5 mg/dl Magnesium Level 2.1 mg/dl Test 05/27/17 11:49 Bedside Glucose 165 mg/dl Imaging: no new imaging Exam: Gen: alert with voice command lungs course breath sounds CV RRR left sided chorea movement shows with intension right and left hand can tender and biceps 5/5 generalize deconditioned Current Inpatient Medications Medications (Trade) Dose Ordered Sig/Krish Route Start Time Stop Time Status Last Admin Dose Admin Acetaminophen (Tylenol Tab) 650 mg Q4H PRN PO 05/14/17 14:15 06/13/17 14:14 05/22/17 10:10 650 MG Magnesium Hydroxide (Milk Of Magnesia Susp) 30 ml Q12H PRN PO 05/14/17 14:15 06/13/17 14:14 Nitroglycerin (Nitrostat Tab) 0.4 mg UD PRN SL 05/14/17 14:15 06/13/17 14:14 05/21/17 07:53 0.4 MG Insulin Aspart (novoLOG ASPART) SLIDING SCALE If C... ACHS SC 05/14/17 16:30 06/13/17 16:29 05/27/17 12:48 3 UNITS Glucose (Glucose 40% Gel) 15-30 GRAMS 15 GRAMS... UD PRN PO 05/14/17 14:30 06/13/17 14:29 05/17/17 16:39 15 GM Glucose (Glucose Chew Tab) 4-8 Tablets 4 Tabl... UD PRN PO 05/14/17 14:30 06/13/17 14:29 Dextrose (Dextrose 50% 50ML Syringe) 25-50ML OF 50% DW IV FOR... UD PRN IV 05/14/17 14:30 06/13/17 14:29 Glucagon (Glucagon Inj) 1 mg UD PRN SQ 05/14/17 14:30 06/13/17 14:29 Miscellaneous Information (Consult Glycemic Management Pharmacy) 1 ea UD PRN N/A 05/14/17 15:00 06/13/17 14:59 Aspirin (Aspirin Chew) 81 mg DAILY PO 05/15/17 09:00 06/14/17 08:59 05/27/17 08:01 81 MG Duloxetine HCl (Cymbalta Cap) 60 mg DAILY PO 05/15/17 09:00 06/14/17 08:59 05/27/17 08:01 60 MG Levothyroxine Sodium (Synthroid Tab) 88 mcg DAILYBB PO 05/15/17 06:30 06/14/17 06:29 05/27/17 05:41 88 MCG Midodrine (Proamatine Tab) 10 mg TID@0600,1200,1800 PO 05/14/17 18:00 06/13/17 17:59 Future Hold 05/19/17 12:42 10 MG Cholecalciferol (Vitamin D Tab) 1,000 inter.unit DAILY PO 05/15/17 09:00 06/14/17 08:59 05/27/17 08:01 1,000 INTER.UNIT Multivitamins/ Minerals (Multivitamin W/ Minerals Tab) 1 tab BID PO 05/14/17 21:00 06/13/17 20:59 05/26/17 21:39 1 TAB Metoprolol Tartrate (Lopressor Tab) 25 mg BID PO 05/15/17 07:00 06/14/17 06:59 05/27/17 08:02 25 MG Metoprolol Tartrate (Lopressor Iv) 5 mg Q6 PRN IV 05/14/17 18:45 06/13/17 18:44 05/14/17 19:59 5 MG Clopidogrel Bisulfate (plAVix TAB) 75 mg QAM PO 05/14/17 18:45 06/13/17 18:44 05/27/17 08:01 75 MG Sodium Chloride 1,000 ml @ 50 mls/hr Q20H IV 05/19/17 07:15 06/18/17 07:14 05/27/17 03:17 50 MLS/HR Ceftriaxone Sodium 1 gm/ Dextrose 50 ml @ 100 mls/hr Q24H IV 05/21/17 14:00 05/30/17 13:59 05/27/17 13:49 100 MLS/HR Enoxaparin Sodium (Lovenox Inj) 40 mg QAM SQ 05/21/17 09:00 06/20/17 08:59 05/27/17 08:09 40 MG Morphine Sulfate (MoRPHine SULFATE INJ) 2 mg Q3HWA PRN IV 05/21/17 08:00 06/04/17 07:59 05/23/17 15:41 2 MG Al Hydrox/Mg Hydrox/Simethicone (Maalox Max Susp) 30 ml Q6H PRN PO 05/21/17 08:15 06/20/17 08:14 Haloperidol Lactate (Haldol Inj) 2 mg Q6 IV 05/23/17 12:00 06/22/17 11:59 05/27/17 12:28 2 MG Levetiracetam 750 mg/Dextrose 107.5 ml @ 440 mls/hr Q12H IV 05/25/17 21:00 06/24/17 20:59 05/27/17 08:08 440 MLS/HR Insulin Glargine (Lantus Solostar Pen) 14 units QAM SC 05/26/17 09:00 06/25/17 08:59 05/27/17 08:18 14 UNITS Polyethylene (Miralax Powder Packet) 17 gm DAILY PRN PO 05/26/17 16:30 06/25/17 16:29 05/26/17 17:20 17 GM Impression 81 year old female with new onset left sided chorea like movement Plan 1. CT head negative for acute findings would be helpful to evaluate for stroke with MRI but patient had pacemaker 2. CK and GFR has improved continue to monitor 3. EEG - read as normal 4. pacemaker interrogated no issues 5. OOB when supervised, continue to help with meals and hydration 6. chorea type movements can be caused by hyperglycemia, hyperthyroid, stroke, lyme. will need further evaluation this is likely stroke. 7. klonopin and gabapentin, seraquel depakote, Keppra were tried without improvement in movements 8. repeat CT head as needed 9. carotid doppler no significant stenosis 10. TTE- ASD not assessed 11. cardiology was consulted and her pacemaker was readjusted for movements and restarted metoprolol 12. IV Haldol 2 mg q 6 mg increased to 3 mg q 6 h. Keppra stopped if failure of medications alternatives would trial Xenazine (Tetrabenazaine) to see if chorea can be controlled has been ordered 13. PT/OT for discharge needs and will likely need some rehab prior to returning to her personal care situation 14. continue aspirin 81 mg and plavix 75 mg added, continue for 3 months and then plavix for a lifetime will need follow up in 2-3 weeks after discharge from rehab with Dr Tracie Esposito or Tracie Parks PAC, neurology I have seen and discussed above patient with Dr Tracie Esposito, neurology Pt seen, sleepy, but interactive, pleasant, unchanged L hemichorea, hemiballismus. P to increase haldol to 3 mg per dose, stop keppra, start tetrabenazine when available. GERI Esposito MD
--- NOTE | 2017-05-27 17:36 | Palliative Care Consultation ---
Consultation Date of Consultation: May 27, 2017. Requesting Physician: Dr Santacruz Attending Physician: Dr Santacruz Reason for Consultation: Assist with Goals of Care History of Present Illness Pt is an 81 yo female who presented to ER on 05/14 with new onset chorea - like movement of her L UE > LLE. Pt was found to have hypodense foci in the L ganglion and R internal capsule. CT also showed lacunar infarcts of indeterminate age. Pt has been seen by Neurology and has been tried on several medications to control movement. Pt is frustrated at times, but with her dementia, she is not distressed by this. Haldol has shown to be most effective so far, pt to be tried on Xenazine when available. Discussed options with daughter and son in law at bedside. They have a good understanding of her current condition and that if Xenazine is not effective that options are limited for her care. They are pursuing options with her current facility as well as other facilities. Discussed that if Xenazine is not effective her only option would be to cont Haldol and accept some sedation. Family agreeable to Hospice if Xenazine does not work. It is very difficult for family to see pt like this, but they also agree that she is less distressed by it than they are. Past Medical/Surgical History Medical History: DM, CAD, orthostatic hypotension, dementia, h/o recurrent UTI's Surgical History: CABG - 2001, pacemaker Family History non contributory Social History Smoking Status: Never Smoker History of Alcohol Use: No Drug Use: none Housing Status: other ([facility] - personal care [facility]) Occupation Status: retired Has daughter who is her HCS, has a son in [place] Review of Systems Unable to obtain - pt not able to answer questions Allergies Coded Allergies: Amoxicillin (Verified Allergy, Unknown, unknown, 05/14/17) Clavulanic Acid (Verified Allergy, Unknown, unknown, 05/14/17) Uncoded Allergies: ANTIBIOTIC (Adverse Reaction, Unknown, CAUSED C-DIFF, 05/14/17) Medications Current Inpatient Medications Medications (Trade) Dose Ordered Sig/Krish Route Start Time Stop Time Status Last Admin Dose Admin Acetaminophen (Tylenol Tab) 650 mg Q4H PRN PO 05/14/17 14:15 06/13/17 14:14 05/22/17 10:10 650 MG Magnesium Hydroxide (Milk Of Magnesia Susp) 30 ml Q12H PRN PO 05/14/17 14:15 06/13/17 14:14 Nitroglycerin (Nitrostat Tab) 0.4 mg UD PRN SL 05/14/17 14:15 06/13/17 14:14 05/21/17 07:53 0.4 MG Insulin Aspart (novoLOG ASPART) SLIDING SCALE If C... ACHS SC 05/14/17 16:30 06/13/17 16:29 05/27/17 12:48 3 UNITS Glucose (Glucose 40% Gel) 15-30 GRAMS 15 GRAMS... UD PRN PO 05/14/17 14:30 06/13/17 14:29 05/17/17 16:39 15 GM Glucose (Glucose Chew Tab) 4-8 Tablets 4 Tabl... UD PRN PO 05/14/17 14:30 06/13/17 14:29 Dextrose (Dextrose 50% 50ML Syringe) 25-50ML OF 50% DW IV FOR... UD PRN IV 05/14/17 14:30 06/13/17 14:29 Glucagon (Glucagon Inj) 1 mg UD PRN SQ 05/14/17 14:30 06/13/17 14:29 Miscellaneous Information (Consult Glycemic Management Pharmacy) 1 ea UD PRN N/A 05/14/17 15:00 06/13/17 14:59 Aspirin (Aspirin Chew) 81 mg DAILY PO 05/15/17 09:00 06/14/17 08:59 05/27/17 08:01 81 MG Duloxetine HCl (Cymbalta Cap) 60 mg DAILY PO 05/15/17 09:00 06/14/17 08:59 05/27/17 08:01 60 MG Levothyroxine Sodium (Synthroid Tab) 88 mcg DAILYBB PO 05/15/17 06:30 06/14/17 06:29 05/27/17 05:41 88 MCG Midodrine (Proamatine Tab) 10 mg TID@0600,1200,1800 PO 05/14/17 18:00 06/13/17 17:59 Future Hold 05/19/17 12:42 10 MG Cholecalciferol (Vitamin D Tab) 1,000 inter.unit DAILY PO 05/15/17 09:00 06/14/17 08:59 05/27/17 08:01 1,000 INTER.UNIT Multivitamins/ Minerals (Multivitamin W/ Minerals Tab) 1 tab BID PO 05/14/17 21:00 06/13/17 20:59 05/26/17 21:39 1 TAB Metoprolol Tartrate (Lopressor Tab) 25 mg BID PO 05/15/17 07:00 06/14/17 06:59 05/27/17 08:02 25 MG Metoprolol Tartrate (Lopressor Iv) 5 mg Q6 PRN IV 05/14/17 18:45 06/13/17 18:44 05/14/17 19:59 5 MG Clopidogrel Bisulfate (plAVix TAB) 75 mg QAM PO 05/14/17 18:45 06/13/17 18:44 05/27/17 08:01 75 MG Sodium Chloride 1,000 ml @ 50 mls/hr Q20H IV 05/19/17 07:15 06/18/17 07:14 05/27/17 03:17 50 MLS/HR Ceftriaxone Sodium 1 gm/ Dextrose 50 ml @ 100 mls/hr Q24H IV 05/21/17 14:00 05/30/17 13:59 05/27/17 13:49 100 MLS/HR Enoxaparin Sodium (Lovenox Inj) 40 mg QAM SQ 05/21/17 09:00 06/20/17 08:59 05/27/17 08:09 40 MG Morphine Sulfate (MoRPHine SULFATE INJ) 2 mg Q3HWA PRN IV 05/21/17 08:00 06/04/17 07:59 05/23/17 15:41 2 MG Al Hydrox/Mg Hydrox/Simethicone (Maalox Max Susp) 30 ml Q6H PRN PO 05/21/17 08:15 06/20/17 08:14 Insulin Glargine (Lantus Solostar Pen) 14 units QAM SC 05/26/17 09:00 06/25/17 08:59 05/27/17 08:18 14 UNITS Polyethylene (Miralax Powder Packet) 17 gm DAILY PRN PO 05/26/17 16:30 06/25/17 16:29 05/26/17 17:20 17 GM Haloperidol Lactate (Haldol Inj) 3 mg Q6 IV 05/27/17 18:00 06/22/17 11:59 Physical Exam Date Time Temp Pulse Resp B/P (MAP) Pulse Ox O2 Delivery O2 Flow Rate FiO2 05/27/17 16:00 92 Room Air 05/27/17 15:33 36.8 87 20 124/63 (83) 92 Room Air 05/27/17 12:00 Room Air 05/27/17 11:40 37.0 73 18 151/63 (92) 91 Room Air 05/27/17 08:15 Room Air 05/27/17 08:09 36.4 74 18 165/79 (107) 93 Room Air 05/27/17 04:00 95 Room Air 05/27/17 02:23 36.8 68 19 161/68 (99) 95 Room Air 05/27/17 00:00 95 Room Air 05/26/17 23:42 36.8 75 19 150/64 (92) 93 Room Air 05/26/17 20:00 95 Room Air 05/26/17 19:54 36.7 62 17 173/66 (101) 95 Room Air General Appearance: + mild distress (havng choreaform movements) Eyes: EOMI ENT: + pertinent finding (mild [place]) Neck: supple Respiratory: no respiratory distress Cardiovascular: regular rate, rhythm Abdomen: soft Musculoskeletal: pertinent finding (able to use R side, choreaform movements of LUE) Neurologic/Psychiatric: + pertinent finding (awake, not oriented) Skin: warm/dry Laboratory Results Last 24 Hours Test 05/26/17 20:10 05/27/17 06:19 05/27/17 07:40 05/27/17 11:49 Bedside Glucose 143 mg/dl 155 mg/dl 165 mg/dl White Blood Count 7.23 K/uL Red Blood Count 3.56 M/uL Hemoglobin 10.7 g/dL Hematocrit 32.6 % Mean Corpuscular Volume 91.6 fL Mean Corpuscular Hemoglobin 30.1 pg Mean Corpuscular Hemoglobin Concent 32.8 g/dl Platelet Count 285 K/uL Mean Platelet Volume 10.7 fL Neutrophils (%) (Auto) 68.0 % Lymphocytes (%) (Auto) 12.7 % Monocytes (%) (Auto) 11.9 % Eosinophils (%) (Auto) 6.8 % Basophils (%) (Auto) 0.3 % Neutrophils # (Auto) 4.92 K/uL Lymphocytes # (Auto) 0.92 K/uL Monocytes # (Auto) 0.86 K/uL Eosinophils # (Auto) 0.49 K/uL Basophils # (Auto) 0.02 K/uL RDW Standard Deviation 51.8 fL RDW Coefficient of Variation 15.6 % Immature Granulocyte % (Auto) 0.3 % Immature Granulocyte # (Auto) 0.02 K/uL Sodium Level 141 mmol/L Potassium Level 3.7 mmol/L Chloride Level 109 mmol/L Carbon Dioxide Level 22 mmol/L Anion Gap 10.0 mmol/L Blood Urea Nitrogen 14 mg/dl Creatinine 0.62 mg/dl Est Creatinine Clear Calc Drug Dose 68.7 ml/min Estimated GFR () 98.0 Estimated GFR (Non- 84.6 BUN/Creatinine Ratio 23.3 Random Glucose 135 mg/dl Calcium Level 8.5 mg/dl Magnesium Level 2.1 mg/dl Test 05/27/17 16:20 Bedside Glucose 113 mg/dl Assessment & Plan Palliative Performance Scale: 30 % (1) Palliative care encounter Assessment & Plan: Will cont to follow pt and assist with decision making. (2) Movement disorder Status: Acute Assessment & Plan: Haldol effective , but sedating . Pt able to take some PO when alert Will wait and see if Xenazine works and will continue to support daughter in decision making. Counseling and Coordination Total time 70 min with > 50% of time spent counseling and providing support to family and pt.
[2017-05-28] VITALS (9 sets, daily range): BP systolic 109–150; BP diastolic 42–81; PULSE 66–88; TEMP 36.3–37.9; O2SAT 90–96
[2017-05-28] MEDS: LEVOTHYROXINE 88 MCG TAB PO SCH (06:09)
[2017-05-28] MEDS: HALOPERIDOL LACTATE 5 MG/ML 1 ML VIAL IV SCH ×4 (06:09→23:32)
[2017-05-28] MEDS: CEROVITE ADV FORMULA TAB PO SCH ×2 (08:14→20:22)
[2017-05-28] MEDS: DULOXETINE HCL 60 MG CAP PO SCH (08:14)
[2017-05-28] MEDS: ASPIRIN 81 MG CHEW PO SCH (08:15)
[2017-05-28] MEDS: METOPROLOL TARTRATE 25 MG TAB PO SCH ×2 (08:15→20:22)
[2017-05-28] MEDS: CLOPIDOGREL BISULFATE 75 MG TAB PO SCH (08:15)
[2017-05-28] MEDS: CHOLECALCIFEROL 1000 INTER.UNIT TAB PO SCH (08:16)
[2017-05-28] MEDS: INSULIN GLARGINE SOLOSTAR 100 UNITS/ML 3 ML PEN SC SCH (08:20)
[2017-05-28] MEDS: ENOXAPARIN 40 MG/0.4 ML SYR SQ SCH (08:21)
[2017-05-28] MEDS: INSULIN ASPART 100 UNITS/ML 3 ML PEN SC SCH ×4 (08:21→20:27)
--- NOTE | 2017-05-28 09:46 | Pharmacy Progress Note ---
Pharmacy Glycemic Short Note 2 Date of Service May 28, 2017. Outpatient Anti-diabetic Regimen: * Lantus 27 units SQ qAM, 11 units SQ qPM * Humalog 5 units TID plus sliding scale * A1c = 7.9% 05/15/17 (9.7% on 08/29/16) ASSESSMENT: * Yesterday, Ms Garnett's blood sugars were [phone] mg/dL and her fasting today was 89 mg/dL. The patient received a total of 21 units of insulin with 14 units of basal. * Today's fasting indicates that the patient may require slightly LESS than 14 units of basal but more than 10 units. Scheduled 12 units. * For Novolog, the patient's blood sugars appeared well controlled and trend downwards. This is most likely secondary to too much basal plus too aggressive carbohydrate coverage. Loosened Novolog parameters. * Ms Garnett is an 80yo F with a PMH of CAD s/p CABG and pacer for SSS, diabetic neuropathy, depression, and reasonably well controlled type 2 diabetes ( currently HbA1C is 7.9% with a goal range of 7.6-8.0 % per the Elements of Diabetes Care Scoring Scale) who presents with seizure-like activity.She continues to be hospitalized for chorea-type movements. PLAN FOR INPATIENT GLYCEMIC CONTROL: * Basal insulin * Lantus 12 units SQ daily in AM * Bolus Insulin * NovoLog per scale ACHS or Q6hrs while NPO * Goal Range: Low 110 mg/dL - High 140 mg/dL * Correction Factor: 45 mg/dL/unit * Nutritional / Prandial insulin per carb ratio of 1 unit per 15 grams CHO consumed PLAN FOR DISCHARGE: * Current A1c (7.9%) reflects acceptable glycemic control as an outpatient ( goal range of 7.6-8.0 % per the Elements of Diabetes Care Scoring Scale) * Expect that patient may resume home regimen on discharge. Current inpatient needs are significantly less. I suspect this may be due to dietary differences. Patient's outpatient regimen is highly basal weighted, therefore Lantus dose is probably covering meals also. May benefit from redistributing regimen to goal of 50% basal and 50% bolus. Thank you.
--- NOTE | 2017-05-28 15:23 | Neurology Progress Notes ---
Neurology Progress Note Date of Service May 28, 2017. Rosaline Vo is a 81 year old female who started having left sided movement which she is unable to control. She has a PMH DM, CAD with bipass x 4 2001, pacemaker , orthostatic hypotension,dementia who states she started having issues with movement yesterday. she states she has always had movement at night with her feet but the arm was never effected. Her daughter states they gave her ativan in the ED which put her to sleep and the only movement at that time was her left foot. She denies any new medications but does say she has not felt well lately and does get alot of UTI's. She states her gait is off and she feel unsteady. denies CP, SOB, abdominal pain, numbness tingling, vision changes, N, V, bowel or bladder symptoms. She is lying in bed sleeping OT and PT have tried working with her and nursing said she was OOB to chair this am but someone had to be there with her because she has a hard time staying in chair. She is more calm with sleeping and she is still refusing the haldol periodically. she is very restless and lethargic. she had CP this am and was given ntg. Her troponin was slightly elevated. She appears very frustrated and but states she is ok. Continuous chorea movements. denies pain. Objective Date Time Temp Pulse Resp B/P (MAP) Pulse Ox O2 Delivery O2 Flow Rate FiO2 05/28/17 11:41 37.6 85 16 116/69 (85) 93 Room Air 05/28/17 08:00 94 Room Air 05/28/17 07:43 37.9 66 16 109/42 (64) 94 Room Air 05/28/17 04:33 36.9 88 16 142/56 (84) 96 Room Air 05/28/17 04:00 Room Air 05/28/17 00:00 Room Air 05/27/17 21:08 84 134/66 (88) 93 Room Air 05/27/17 20:00 93 Room Air 05/27/17 19:45 37.2 75 18 147/83 (104) 93 Room Air 05/27/17 16:00 92 Room Air 05/27/17 15:33 36.8 87 20 124/63 (83) 92 Room Air Last 24 Hours Test 3/5/18 16:20 05/27/17 20:20 05/28/17 07:11 05/28/17 11:28 Bedside Glucose 113 mg/dl 97 mg/dl 89 mg/dl 84 mg/dl Imaging: no new imaging Exam: Gen: alert NAD lungs course breath sounds CV RRR generalized weakness lip smacking, chorea movements on the left UE, left LE continually sliding and lifting of foot Current Inpatient Medications Medications (Trade) Dose Ordered Sig/Krish Route Start Time Stop Time Status Last Admin Dose Admin Acetaminophen (Tylenol Tab) 650 mg Q4H PRN PO 05/14/17 14:15 06/13/17 14:14 05/22/17 10:10 650 MG Magnesium Hydroxide (Milk Of Magnesia Susp) 30 ml Q12H PRN PO 05/14/17 14:15 06/13/17 14:14 Nitroglycerin (Nitrostat Tab) 0.4 mg UD PRN SL 05/14/17 14:15 06/13/17 14:14 05/21/17 07:53 0.4 MG Insulin Aspart (novoLOG ASPART) SLIDING SCALE If C... ACHS SC 05/14/17 16:30 06/13/17 16:29 05/28/17 08:21 2 UNITS Glucose (Glucose 40% Gel) 15-30 GRAMS 15 GRAMS... UD PRN PO 05/14/17 14:30 06/13/17 14:29 05/17/17 16:39 15 GM Glucose (Glucose Chew Tab) 4-8 Tablets 4 Tabl... UD PRN PO 05/14/17 14:30 06/13/17 14:29 Dextrose (Dextrose 50% 50ML Syringe) 25-50ML OF 50% DW IV FOR... UD PRN IV 05/14/17 14:30 06/13/17 14:29 Glucagon (Glucagon Inj) 1 mg UD PRN SQ 05/14/17 14:30 06/13/17 14:29 Miscellaneous Information (Consult Glycemic Management Pharmacy) 1 ea UD PRN N/A 05/14/17 15:00 06/13/17 14:59 Aspirin (Aspirin Chew) 81 mg DAILY PO 05/15/17 09:00 06/14/17 08:59 05/28/17 08:15 81 MG Duloxetine HCl (Cymbalta Cap) 60 mg DAILY PO 05/15/17 09:00 06/14/17 08:59 05/28/17 08:14 60 MG Levothyroxine Sodium (Synthroid Tab) 88 mcg DAILYBB PO 05/15/17 06:30 06/14/17 06:29 05/28/17 06:09 88 MCG Midodrine (Proamatine Tab) 10 mg TID@0600,1200,1800 PO 05/14/17 18:00 06/13/17 17:59 Future Hold 05/19/17 12:42 10 MG Cholecalciferol (Vitamin D Tab) 1,000 inter.unit DAILY PO 05/15/17 09:00 06/14/17 08:59 05/28/17 08:16 1,000 INTER.UNIT Multivitamins/ Minerals (Multivitamin W/ Minerals Tab) 1 tab BID PO 05/14/17 21:00 06/13/17 20:59 05/28/17 08:14 1 TAB Metoprolol Tartrate (Lopressor Tab) 25 mg BID PO 05/15/17 07:00 06/14/17 06:59 05/28/17 08:15 25 MG Metoprolol Tartrate (Lopressor Iv) 5 mg Q6 PRN IV 05/14/17 18:45 06/13/17 18:44 05/14/17 19:59 5 MG Clopidogrel Bisulfate (plAVix TAB) 75 mg QAM PO 05/14/17 18:45 06/13/17 18:44 05/28/17 08:15 75 MG Sodium Chloride 1,000 ml @ 50 mls/hr Q20H IV 05/19/17 07:15 06/18/17 07:14 05/27/17 23:36 50 MLS/HR Enoxaparin Sodium (Lovenox Inj) 40 mg QAM SQ 05/21/17 09:00 06/20/17 08:59 05/28/17 08:21 40 MG Morphine Sulfate (MoRPHine SULFATE INJ) 2 mg Q3HWA PRN IV 05/21/17 08:00 06/04/17 07:59 05/23/17 15:41 2 MG Al Hydrox/Mg Hydrox/Simethicone (Maalox Max Susp) 30 ml Q6H PRN PO 05/21/17 08:15 06/20/17 08:14 Polyethylene (Miralax Powder Packet) 17 gm DAILY PRN PO 05/26/17 16:30 06/25/17 16:29 05/26/17 17:20 17 GM Haloperidol Lactate (Haldol Inj) 3 mg Q6 IV 05/27/17 18:00 06/22/17 11:59 05/28/17 12:47 3 MG Insulin Glargine (Lantus Solostar Pen) 12 units QAM SC 05/28/17 09:00 06/27/17 08:59 05/28/17 08:20 12 UNITS Impression 81 year old female with new onset left sided chorea like movement Plan 1. CT head negative for acute findings would be helpful to evaluate for stroke with MRI but patient had pacemaker 2. CK and GFR has improved continue to monitor 3. EEG - read as normal 4. pacemaker interrogated no issues 5. OOB when supervised, continue to help with meals and hydration 6. chorea type movements can be caused by hyperglycemia, hyperthyroid, stroke, lyme. will need further evaluation this is likely stroke. 7. klonopin and gabapentin, seraquel depakote, Keppra were tried without improvement in movements 8. repeat CT head as needed may do CT head with contrast if needed 9. carotid doppler no significant stenosis 10. TTE- ASD not assessed 11. cardiology was consulted and her pacemaker was readjusted for movements and restarted metoprolol 12. IV Haldol 2 mg q 6 mg increased to 3 mg q 6 h. Keppra stopped if failure of medications alternatives would trial Xenazine (Tetrabenazaine) to see if chorea can be controlled has been ordered 13. PT/OT for discharge needs and will likely need some rehab prior to returning to her personal care situation 14. continue aspirin 81 mg and plavix 75 mg added, continue for 3 months and then plavix for a lifetime checked with pharmacy to see when the tetrabenazaine can be expected - they will advise. will need follow up in 2-3 weeks after discharge from rehab with Dr Tracie Esposito or Tracie Parks PAC, neurology I have seen and discussed above patient with Dr Tracie Esposito, neurology Pt seen and examined, appears unchanged, appears mildly encephalopathic which may improve as time passes from dc keppra. Hospital has acquired tetrabenazine and will begin. Will continue to monitor QT interval. May consider taper of haldol as it appears to have not been helpful, however has improved sleep. GERI Esposito MD
--- NOTE | 2017-05-28 16:58 | Progress Note ---
Internal Med Progress Note Date of Service: May 28, 2017. Provider Documentation: SUBJECTIVE: Patient patient seen and examined, Continues to have involuntary movement of left upper extremity and left leg, Denies of any pain or discomfort Wants to when she can be discharged to rehab. OBJECTIVE: Vital Signs-as noted below Exam: General-no apparent distress moving L arm and leg in voluntarily Eyes-sclera nonicteric, PERRLA/EOMI ENT-moist oral mucosa Neck-no JVD, no carotid bruit Lungs-clear to auscultation no wheezes rales Heart-regular S1-S2 Abdomen-soft nontender Extremities-multiple skin tears noted in both Left upper and lower ext due to constant flailing movement Neuro-L involuntary constant movement of left arm, and left lower extremity, awake and alert , oriented to surroundings, no dysarthria Lab data as noted below. ASSESSMENT & PLAN: Left sided hemiballisitic movement : possible due to acute CVA MRI of brain could not be done due to presence of pacemaker pt continues to have left sided flailing movement appreciate input form Neurology started on schedule Haldol , Klonopin, gabapentin, Seroquel, Depakote, Keppra -multiple medication tried without any improvement of involuntary flailing movement Trial of Xenazine ordered to assess if Choreotic movement will improve -She will continue with aspirin 81 mg and Plavix 75 mg will continue 3 months with double antiplatelet DC aspirin after 3 months Then continue Plavix for lifetime if no bleeding complication noted Mild rhabdomyolysis : resolved after IV hydration hx of sick sinus syndrome S/p Pacemaker placement : Cardiology eval appreciated Pacemaker interrogation shows no arrhythmia beta radha dose adjusted DNR/DNI very poor prognosis DVT PROPHYLAXIS Moderate to high risk Subcu Lovenox DISPOSITION Plan to discharge to rehab awaiting placement Patient will be transitioned to palliative care hospice Vital Signs: Date Time Temp Pulse Resp B/P (MAP) Pulse Ox O2 Delivery O2 Flow Rate FiO2 05/28/17 20:00 Room Air 05/28/17 19:40 36.9 81 18 147/72 (97) 96 Room Air 05/28/17 16:00 94 Room Air 05/28/17 15:36 36.3 77 18 128/81 (97) 95 Room Air 05/28/17 12:00 94 Room Air 05/28/17 11:41 37.6 85 16 116/69 (85) 93 Room Air 05/28/17 08:00 94 Room Air 05/28/17 07:43 37.9 66 16 109/42 (64) 94 Room Air 05/28/17 04:33 36.9 88 16 142/56 (84) 96 Room Air 05/28/17 04:00 Room Air 05/28/17 00:00 Room Air Lab Results: Results Past 24 Hours Test 05/28/17 07:11 05/28/17 11:28 05/28/17 16:17 05/28/17 20:27 Range/Units Bedside Glucose 89 84 79 74 70-90 mg/dl
[2017-05-28] MEDS: TETRABENAZINE 12.5 MG PO SCH (18:01)
[2017-05-28] MEDS: SODIUM CHLORIDE 0.9% 1000ML 1,000 ML IV SCH (19:47)
[2017-05-29] VITALS (9 sets, daily range): BP systolic 96–182; BP diastolic 50–83; PULSE 68–90; TEMP 36.3–37; O2SAT 92–98
[2017-05-29] MEDS: HALOPERIDOL LACTATE 5 MG/ML 1 ML VIAL IV SCH ×3 (05:43→21:44)
[2017-05-29] MEDS: LEVOTHYROXINE 88 MCG TAB PO SCH (05:43)
[2017-05-29] MEDS: METOPROLOL TARTRATE 25 MG TAB PO SCH ×2 (07:48→21:35)
[2017-05-29] MEDS: CHOLECALCIFEROL 1000 INTER.UNIT TAB PO SCH (07:48)
[2017-05-29] MEDS: CEROVITE ADV FORMULA TAB PO SCH ×2 (07:48→21:35)
[2017-05-29] MEDS: ASPIRIN 81 MG CHEW PO SCH (07:48)
[2017-05-29] MEDS: CLOPIDOGREL BISULFATE 75 MG TAB PO SCH (07:48)
[2017-05-29] MEDS: DULOXETINE HCL 60 MG CAP PO SCH (07:49)
[2017-05-29] MEDS: ENOXAPARIN 40 MG/0.4 ML SYR SQ SCH (07:49)
[2017-05-29] MEDS: TETRABENAZINE 12.5 MG PO SCH (07:50)
[2017-05-29] MEDS: INSULIN GLARGINE SOLOSTAR 100 UNITS/ML 3 ML PEN SC SCH (07:56)
[2017-05-29] MEDS: INSULIN ASPART 100 UNITS/ML 3 ML PEN SC SCH ×4 (08:02→21:00)
--- NOTE | 2017-05-29 13:46 | Pharmacy Progress Note ---
Pharmacy Glycemic Short Note 2 Date of Service May 29, 2017. Outpatient Anti-diabetic Regimen: * Lantus 27 units SQ qAM, 11 units SQ qPM * Humalog 5 units TID plus sliding scale * A1c = 7.9% 05/15/17 (9.7% on 08/29/16) ASSESSMENT: * Yesterday, Ms Garnett's blood sugars were 89-84-79-74 mg/dL and her fasting today was 108 mg/dL. The patient received a total of 14 units of insulin with 12 units of basal. * Today's fasting is improved but lunch blood sugar was lower. Decrease Lantus to a scale of 10 or 11 units (most likely patient requires 10 units). * For Novolog, the patient only received 2 units at breakfast. The subsequent lunch blood sugar was 5 points lower. Continue loosened parameters. Goal range is higher for patient as she appears to have declining appetite. Did start tetrabenazine yesterday - side effects include anorexia and diarrhea (incidence of 1-10%). * Ms Garnett is an 80yo F with a PMH of CAD s/p CABG and pacer for SSS, diabetic neuropathy, depression, and reasonably well controlled type 2 diabetes ( currently HbA1C is 7.9% with a goal range of 7.6-8.0 % per the Elements of Diabetes Care Scoring Scale) who presents with seizure-like activity.She continues to be hospitalized for chorea-type movements. PLAN FOR INPATIENT GLYCEMIC CONTROL: * Basal insulin * Lantus 10-11 units SQ daily in AM (Lantus 10 units if blood sugar less than 120 mg/dL) * Bolus Insulin * NovoLog per scale ACHS or Q6hrs while NPO * Goal Range: Low 110 mg/dL - High 140 mg/dL * Correction Factor: 45 mg/dL/unit * Nutritional / Prandial insulin per carb ratio of 1 unit per 15 grams CHO consumed PLAN FOR DISCHARGE: * Current A1c (7.9%) reflects acceptable glycemic control as an outpatient ( goal range of 7.6-8.0 % per the Elements of Diabetes Care Scoring Scale) * Expect that patient may resume home regimen on discharge. Current inpatient needs are significantly less. I suspect this may be due to dietary differences. Patient's outpatient regimen is highly basal weighted, therefore Lantus dose is probably covering meals also. May benefit from redistributing regimen to goal of 50% basal and 50% bolus. Thank you.
--- NOTE | 2017-05-29 14:57 | Neurology Progress Notes ---
Neurology Progress Note Date of Service May 29, 2017. Rosaline Vo is a 81 year old female who started having left sided movement which she is unable to control. She has a PMH DM, CAD with bipass x 4 2001, pacemaker , orthostatic hypotension,dementia who states she started having issues with movement yesterday. she states she has always had movement at night with her feet but the arm was never effected. Her daughter states they gave her ativan in the ED which put her to sleep and the only movement at that time was her left foot. She denies any new medications but does say she has not felt well lately and does get alot of UTI's. She states her gait is off and she feel unsteady. denies CP, SOB, abdominal pain, numbness tingling, vision changes, N, V, bowel or bladder symptoms. She is lying in bed sleeping OT and PT have tried working with her and nursing said she was OOB to chair this am but someone had to be there with her because she has a hard time staying in chair. She is more calm with sleeping and she is still refusing the haldol periodically. she is very restless and lethargic. she had CP this am and was given ntg. Her troponin was slightly elevated. Today she is still having chorea like movement on left. she seems in better spirit today and states she is hanging in. Objective Date Time Temp Pulse Resp B/P (MAP) Pulse Ox O2 Delivery O2 Flow Rate FiO2 05/29/17 12:00 Room Air 05/29/17 11:17 36.5 68 16 96/60 (72) 92 Room Air 05/29/17 08:00 Room Air 05/29/17 07:28 36.5 69 18 136/69 (91) 94 Room Air 05/29/17 04:44 37.0 70 20 126/60 (82) 93 Room Air 05/29/17 04:30 Room Air 05/29/17 00:00 Room Air 05/28/17 23:38 37.1 69 17 150/62 (91) 90 Room Air 05/28/17 20:00 Room Air 05/28/17 19:40 36.9 81 18 147/72 (97) 96 Room Air 05/28/17 16:00 94 Room Air 05/28/17 15:36 36.3 77 18 128/81 (97) 95 Room Air Last 24 Hours Test 05/28/17 16:17 05/28/17 20:27 05/29/17 04:15 05/29/17 07:28 Bedside Glucose 79 mg/dl 74 mg/dl 105 mg/dl 108 mg/dl Test 05/29/17 11:34 Bedside Glucose 79 mg/dl Imaging: EKG -QT interval 438/ QTc 444 Exam: Gen: alert oriented to self and place lungs course breath sounds CV RRR left sided chorea type movement in arm and leg multiple areas of skin breakdown. Current Inpatient Medications Medications (Trade) Dose Ordered Sig/Krish Route Start Time Stop Time Status Last Admin Dose Admin Acetaminophen (Tylenol Tab) 650 mg Q4H PRN PO 05/14/17 14:15 06/13/17 14:14 05/22/17 10:10 650 MG Magnesium Hydroxide (Milk Of Magnesia Susp) 30 ml Q12H PRN PO 05/14/17 14:15 06/13/17 14:14 Nitroglycerin (Nitrostat Tab) 0.4 mg UD PRN SL 05/14/17 14:15 06/13/17 14:14 05/21/17 07:53 0.4 MG Insulin Aspart (novoLOG ASPART) SLIDING SCALE If C... ACHS SC 05/14/17 16:30 06/13/17 16:29 05/28/17 08:21 2 UNITS Glucose (Glucose 40% Gel) 15-30 GRAMS 15 GRAMS... UD PRN PO 05/14/17 14:30 06/13/17 14:29 05/17/17 16:39 15 GM Glucose (Glucose Chew Tab) 4-8 Tablets 4 Tabl... UD PRN PO 05/14/17 14:30 06/13/17 14:29 Dextrose (Dextrose 50% 50ML Syringe) 25-50ML OF 50% DW IV FOR... UD PRN IV 05/14/17 14:30 06/13/17 14:29 Glucagon (Glucagon Inj) 1 mg UD PRN SQ 05/14/17 14:30 06/13/17 14:29 Miscellaneous Information (Consult Glycemic Management Pharmacy) 1 ea UD PRN N/A 05/14/17 15:00 06/13/17 14:59 Aspirin (Aspirin Chew) 81 mg DAILY PO 05/15/17 09:00 06/14/17 08:59 05/29/17 07:48 81 MG Duloxetine HCl (Cymbalta Cap) 60 mg DAILY PO 05/15/17 09:00 06/14/17 08:59 05/29/17 07:49 60 MG Levothyroxine Sodium (Synthroid Tab) 88 mcg DAILYBB PO 05/15/17 06:30 06/14/17 06:29 05/29/17 05:43 88 MCG Midodrine (Proamatine Tab) 10 mg TID@0600,1200,1800 PO 05/14/17 18:00 06/13/17 17:59 Future Hold 05/19/17 12:42 10 MG Cholecalciferol (Vitamin D Tab) 1,000 inter.unit DAILY PO 05/15/17 09:00 06/14/17 08:59 05/29/17 07:48 1,000 INTER.UNIT Multivitamins/ Minerals (Multivitamin W/ Minerals Tab) 1 tab BID PO 05/14/17 21:00 06/13/17 20:59 05/29/17 07:48 1 TAB Metoprolol Tartrate (Lopressor Tab) 25 mg BID PO 05/15/17 07:00 06/14/17 06:59 05/29/17 07:48 25 MG Metoprolol Tartrate (Lopressor Iv) 5 mg Q6 PRN IV 05/14/17 18:45 06/13/17 18:44 05/14/17 19:59 5 MG Clopidogrel Bisulfate (plAVix TAB) 75 mg QAM PO 05/14/17 18:45 06/13/17 18:44 05/29/17 07:48 75 MG Enoxaparin Sodium (Lovenox Inj) 40 mg QAM SQ 05/21/17 09:00 06/20/17 08:59 05/29/17 07:49 40 MG Morphine Sulfate (MoRPHine SULFATE INJ) 2 mg Q3HWA PRN IV 05/21/17 08:00 06/04/17 07:59 05/23/17 15:41 2 MG Al Hydrox/Mg Hydrox/Simethicone (Maalox Max Susp) 30 ml Q6H PRN PO 05/21/17 08:15 06/20/17 08:14 Polyethylene (Miralax Powder Packet) 17 gm DAILY PRN PO 05/26/17 16:30 06/25/17 16:29 05/26/17 17:20 17 GM Haloperidol Lactate (Haldol Inj) 3 mg Q6 IV 05/27/17 18:00 06/22/17 11:59 05/29/17 11:51 3 MG Tetrabenazine (Tetrabenazine) 12.5 mg DAILY PO 05/28/17 17:15 06/27/17 17:14 05/29/17 07:50 12.5 MG Insulin Glargine (Lantus Solostar Pen) SEE PROTOCOL TEXT QAM SC 05/30/17 09:00 06/29/17 08:59 Impression 81 year old female with new onset left sided chorea like movement Plan 1. CT head negative for acute findings would be helpful to evaluate for stroke with MRI but patient had pacemaker 2. CK and GFR has improved continue to monitor 3. EEG - read as normal 4. pacemaker interrogated no issues 5. OOB when supervised, continue to help with meals and hydration 6. chorea type movements can be caused by hyperglycemia, hyperthyroid, stroke, lyme. will need further evaluation this is likely stroke. 7. klonopin and gabapentin, seraquel depakote, Keppra, Haldol were tried without improvement in movements 8. repeat CT head as needed may do CT head with contrast if needed 9. carotid doppler no significant stenosis 10. TTE- ASD not assessed 11. cardiology was consulted and her pacemaker was readjusted for movements and restarted metoprolol 12. IV Haldol 2 mg q 6 mg increased to 3 mg q 6 h. Keppra stopped if failure of medications alternatives would trial Xenazine (Tetrabenazaine) patient had received 2 doses of 12.5 mg will need a longer trial to see if effective and will need titrated if discharged. 13. PT/OT for discharge needs and will likely need some rehab prior to returning to her personal care situation 14. continue aspirin 81 mg and plavix 75 mg added, continue for 3 months and then plavix for a lifetime 15. Haldol decreased from QID to TID and then can further ok to then substitute with seroquel to transition for sleep working toward discharge Pt seen, examined, remains unchanged, plan as above. GERI Esposito MD will need follow up in 2-3 weeks after discharge from rehab with Dr Tracie Esposito or Tracie Parks PAC, neurology I have seen and discussed above patient with Dr Tracie Esposito neurology Pt seen and examined. Agree with management as above, It would be burdensome for the pt to be transported from the [facility]. I would be glad to speak to the [place] physician if they would desire. The pt prognosis is poor. GERI Esposito MD
[2017-05-29] MEDS ORDERED: PLV75 PO (16:20)
[2017-05-29] MEDS ORDERED: [UNRECOGNIZED DRUG - CODE] PO (16:20)
[2017-05-29] MEDS ORDERED: LPR25 PO (16:20)
[2017-05-29] MEDS ORDERED: ALBUT/IPRATROP 3MG/0.5MG NEB 3 ML VIAL INH PRN (17:00)
[2017-05-29] MEDS ORDERED: ALBUTEROL HFA 8 GM INHALER INH PRN (17:00)
--- NOTE | 2017-05-29 19:16 | Progress Note ---
Internal Med Progress Note Date of Service: May 29, 2017. Provider Documentation: SUBJECTIVE: More anxious today Continue to have left upper and lower extremity flailing movements No significant improvement after trial of Xenazine Plan of care discussed with patient's daughter, who was present at bedside today Understands the poor prognosis OBJECTIVE: Vital Signs-as noted below Exam: General- L arm and leg in voluntarily; anxious Eyes-sclera nonicteric, PERRLA/EOMI ENT-moist oral mucosa Neck-no JVD, no carotid bruit Lungs-clear to auscultation no wheezes rales Heart-regular S1-S2 Abdomen-soft nontender Extremities-multiple skin tears noted in both Left upper and lower ext due to constant flailing movement Neuro-L involuntary constant movement of left arm, and left lower extremity, awake and alert , oriented to surroundings, no dysarthria Lab data as noted below. ASSESSMENT & PLAN: Left sided hemiballisms/choreoathetoid movement : possible due to acute CVA MRI of brain could not be done due to presence of pacemaker pt continues to have left sided flailing movement appreciate input form Neurology started on schedule Haldol , Trial of Xenazine ordered to assess if Choreotic movement will improve -Was noted to have minimal movement while sleeping -Per nursing has not been able to sleep for the last 2 days -We will do trial of Seroquel 25 mg at bedtime tonight -Haldol dose will be reduced to prevent QTC prolongation -Patient will continue will continue with aspirin 81 mg and Plavix 75 mg will continue 3 months with double antiplatelet DC aspirin after 3 months Then continue Plavix for lifetime if no bleeding complication noted Mild rhabdomyolysis : resolved after IV hydration hx of sick sinus syndrome S/p Pacemaker placement : Cardiology eval appreciated Pacemaker interrogation shows no arrhythmia beta radha dose adjusted DNR/DNI very poor prognosis DVT PROPHYLAXIS Moderate to high risk Subcu Lovenox DISPOSITION Possible transfer to skilled rehab tomorrow Vital Signs: Date Time Temp Pulse Resp B/P (MAP) Pulse Ox O2 Delivery O2 Flow Rate FiO2 05/30/17 11:25 36.7 82 20 156/78 (104) 91 Room Air 05/30/17 08:00 Room Air 05/30/17 07:23 36.7 77 18 175/81 (112) 95 Room Air 05/30/17 04:00 Room Air 05/30/17 00:00 Room Air 05/29/17 23:06 36.8 69 20 121/50 (73) 98 Room Air 05/29/17 21:31 90 131/63 (85) 05/29/17 20:00 96 Room Air 05/29/17 19:37 36.6 69 20 135/83 (100) 95 Room Air 05/29/17 16:00 96 Room Air 05/29/17 15:22 36.3 80 18 182/74 (110) 96 Room Air Lab Results: Results Past 24 Hours Test 05/29/17 16:28 05/29/17 20:43 05/30/17 07:20 05/30/17 07:42 Range/Units Bedside Glucose 71 80 137 70-90 mg/dl White Blood Count 8.77 4.8-10.8 K/uL Red Blood Count 3.98 4.2-5.4 M/uL Hemoglobin 11.8 12.0-16.0 g/dL Hematocrit 37.3 37-47 % Mean Corpuscular Volume 93.7 80-100 fL Mean Corpuscular Hemoglobin 29.6 25-34 pg Mean Corpuscular Hemoglobin Concent 31.6 32-36 g/dl RDW Standard Deviation 52.0 36.4-46.3 fL RDW Coefficient of Variation 15.4 11.5-14.5 % Platelet Count 344 130-400 K/uL Mean Platelet Volume 10.9 7.4-10.4 fL Creatinine 0.81 0.60-1.20 mg/dl Est Creatinine Clear Calc Drug Dose 52.0 ml/min Estimated GFR () 78.9 Estimated GFR (Non- 68.1 Test 05/30/17 11:17 Range/Units Bedside Glucose 170 70-90 mg/dl
[2017-05-29] MEDS: QUETIAPINE FUMARATE 25 MG TAB PO SCH (21:35)
[2017-05-30] VITALS (8 sets, daily range): BP systolic 105–175; BP diastolic 50–81; PULSE 69–83; TEMP 36.7–37.2; O2SAT 91–95
[2017-05-30] MEDS: HALOPERIDOL LACTATE 5 MG/ML 1 ML VIAL IV SCH (06:03)
[2017-05-30] MEDS: LEVOTHYROXINE 88 MCG TAB PO SCH (06:04)
[2017-05-30] MEDS: METOPROLOL TARTRATE 25 MG TAB PO SCH ×2 (07:27→21:50)
[2017-05-30 07:47] LABS: HEMATOCRIT 37.3 % (37-47); HEMOGLOBIN 11.8 g/dL (12.0-16.0); MEAN CELL VOLUME 93.7 fL (80-100); MEAN CORPUSCULAR HEMOGLOBIN 29.6 pg (25-34); MEAN CORPUSCULAR HGB CONC 31.6 g/dl (32-36); MEAN PLATELET VOLUME 10.9 fL (7.4-10.4); PLATELET COUNT 344 K/uL (130-400); RED CELL DISTRIBUTION WIDTH CV 15.4 % (11.5-14.5); WHITE BLOOD COUNT 8.77 K/uL (4.8-10.8)
[2017-05-30 08:05] LABS: CREATININE 0.81 mg/dl (0.60-1.20)
[2017-05-30] MEDS: INSULIN ASPART 100 UNITS/ML 3 ML PEN SC SCH ×4 (09:21→20:57)
[2017-05-30] MEDS: DULOXETINE HCL 60 MG CAP PO SCH (09:21)
[2017-05-30] MEDS: CEROVITE ADV FORMULA TAB PO SCH ×2 (09:22→21:00)
[2017-05-30] MEDS: ASPIRIN 81 MG CHEW PO SCH (09:22)
[2017-05-30] MEDS: CLOPIDOGREL BISULFATE 75 MG TAB PO SCH (09:22)
[2017-05-30] MEDS: CHOLECALCIFEROL 1000 INTER.UNIT TAB PO SCH (09:22)
[2017-05-30] MEDS: ENOXAPARIN 40 MG/0.4 ML SYR SQ SCH (09:24)
[2017-05-30] MEDS: INSULIN GLARGINE SOLOSTAR 100 UNITS/ML 3 ML PEN SC SCH (09:36)
[2017-05-30] MEDS: TETRABENAZINE 12.5 MG PO SCH (09:58)
--- NOTE | 2017-05-30 14:36 | Neurology Progress Notes ---
Neurology Progress Note Date of Service May 30, 2017. Rosaline Vo is a 81 year old female who started having left sided movement which she is unable to control. She has a PMH DM, CAD with bipass x 4 2001, pacemaker , orthostatic hypotension,dementia who states she started having issues with movement yesterday. she states she has always had movement at night with her feet but the arm was never effected. Her daughter states they gave her ativan in the ED which put her to sleep and the only movement at that time was her left foot. She denies any new medications but does say she has not felt well lately and does get alot of UTI's. She states her gait is off and she feel unsteady. denies CP, SOB, abdominal pain, numbness tingling, vision changes, N, V, bowel or bladder symptoms. She is lying in bed sleeping OT and PT have tried working with her and nursing said she was OOB to chair this am but someone had to be there with her because she has a hard time staying in chair. She is more calm with sleeping and she is still refusing the haldol periodically. she is very restless and lethargic. she had CP this am and was given ntg. Her troponin was slightly elevated. She is still having continuous chorea movements. She states she is tired and worn down. Objective Date Time Temp Pulse Resp B/P (MAP) Pulse Ox O2 Delivery O2 Flow Rate FiO2 05/30/17 12:00 Room Air 05/30/17 11:25 36.7 82 20 156/78 (104) 91 Room Air 05/30/17 08:00 Room Air 05/30/17 07:23 36.7 77 18 175/81 (112) 95 Room Air 05/30/17 04:00 Room Air 05/30/17 00:00 Room Air 05/29/17 23:06 36.8 69 20 121/50 (73) 98 Room Air 05/29/17 21:31 90 131/63 (85) 05/29/17 20:00 96 Room Air 05/29/17 19:37 36.6 69 20 135/83 (100) 95 Room Air 05/29/17 16:00 96 Room Air 05/29/17 15:22 36.3 80 18 182/74 (110) 96 Room Air Last 24 Hours Test 05/29/17 16:28 05/29/17 20:43 05/30/17 07:20 05/30/17 07:42 Bedside Glucose 71 mg/dl 80 mg/dl 137 mg/dl White Blood Count 8.77 K/uL Red Blood Count 3.98 M/uL Hemoglobin 11.8 g/dL Hematocrit 37.3 % Mean Corpuscular Volume 93.7 fL Mean Corpuscular Hemoglobin 29.6 pg Mean Corpuscular Hemoglobin Concent 31.6 g/dl RDW Standard Deviation 52.0 fL RDW Coefficient of Variation 15.4 % Platelet Count 344 K/uL Mean Platelet Volume 10.9 fL Creatinine 0.81 mg/dl Est Creatinine Clear Calc Drug Dose 52.0 ml/min Estimated GFR () 78.9 Estimated GFR (Non- 68.1 Test 05/30/17 11:17 Bedside Glucose 170 mg/dl Imaging: EKG QT/QTc 458/464 Exam: Gen: alert appears fatigued, states tired lungs course breath sounds CV RRR neuro: oriented to self and [facility] left sided chorea movement Current Inpatient Medications Medications (Trade) Dose Ordered Sig/Krish Route Start Time Stop Time Status Last Admin Dose Admin Acetaminophen (Tylenol Tab) 650 mg Q4H PRN PO 05/14/17 14:15 06/13/17 14:14 05/22/17 10:10 650 MG Magnesium Hydroxide (Milk Of Magnesia Susp) 30 ml Q12H PRN PO 05/14/17 14:15 06/13/17 14:14 Nitroglycerin (Nitrostat Tab) 0.4 mg UD PRN SL 05/14/17 14:15 06/13/17 14:14 05/21/17 07:53 0.4 MG Insulin Aspart (novoLOG ASPART) SLIDING SCALE If C... ACHS SC 05/14/17 16:30 06/13/17 16:29 05/30/17 12:50 5 UNITS Glucose (Glucose 40% Gel) 15-30 GRAMS 15 GRAMS... UD PRN PO 05/14/17 14:30 06/13/17 14:29 05/17/17 16:39 15 GM Glucose (Glucose Chew Tab) 4-8 Tablets 4 Tabl... UD PRN PO 05/14/17 14:30 06/13/17 14:29 Dextrose (Dextrose 50% 50ML Syringe) 25-50ML OF 50% DW IV FOR... UD PRN IV 05/14/17 14:30 06/13/17 14:29 Glucagon (Glucagon Inj) 1 mg UD PRN SQ 05/14/17 14:30 06/13/17 14:29 Miscellaneous Information (Consult Glycemic Management Pharmacy) 1 ea UD PRN N/A 05/14/17 15:00 06/13/17 14:59 Aspirin (Aspirin Chew) 81 mg DAILY PO 05/15/17 09:00 06/14/17 08:59 05/30/17 09:22 81 MG Duloxetine HCl (Cymbalta Cap) 60 mg DAILY PO 05/15/17 09:00 06/14/17 08:59 05/30/17 09:21 60 MG Levothyroxine Sodium (Synthroid Tab) 88 mcg DAILYBB PO 05/15/17 06:30 06/14/17 06:29 05/30/17 06:04 88 MCG Midodrine (Proamatine Tab) 10 mg TID@0600,1200,1800 PO 05/14/17 18:00 06/13/17 17:59 Future Hold 05/19/17 12:42 10 MG Cholecalciferol (Vitamin D Tab) 1,000 inter.unit DAILY PO 05/15/17 09:00 06/14/17 08:59 05/30/17 09:22 1,000 INTER.UNIT Multivitamins/ Minerals (Multivitamin W/ Minerals Tab) 1 tab BID PO 05/14/17 21:00 06/13/17 20:59 05/30/17 09:22 1 TAB Metoprolol Tartrate (Lopressor Tab) 25 mg BID PO 05/15/17 07:00 06/14/17 06:59 05/30/17 07:27 25 MG Metoprolol Tartrate (Lopressor Iv) 5 mg Q6 PRN IV 05/14/17 18:45 06/13/17 18:44 05/14/17 19:59 5 MG Clopidogrel Bisulfate (plAVix TAB) 75 mg QAM PO 05/14/17 18:45 06/13/17 18:44 05/30/17 09:22 75 MG Enoxaparin Sodium (Lovenox Inj) 40 mg QAM SQ 05/21/17 09:00 06/20/17 08:59 05/30/17 09:24 40 MG Al Hydrox/Mg Hydrox/Simethicone (Maalox Max Susp) 30 ml Q6H PRN PO 05/21/17 08:15 06/20/17 08:14 Polyethylene (Miralax Powder Packet) 17 gm DAILY PRN PO 05/26/17 16:30 06/25/17 16:29 05/26/17 17:20 17 GM Tetrabenazine (Tetrabenazine) 12.5 mg DAILY PO 05/28/17 17:15 06/27/17 17:14 05/30/17 09:58 12.5 MG Insulin Glargine (Lantus Solostar Pen) SEE PROTOCOL TEXT QAM SC 05/30/17 09:00 06/29/17 08:59 05/30/17 09:36 11 UNITS Albuterol (Ventolin Hfa Inhaler) 2 puffs Q4 PRN INH 05/29/17 17:00 06/28/17 16:59 Albuterol/ Ipratropium (Duoneb) 3 ml Q4R PRN INH 05/29/17 17:00 06/28/17 16:59 Quetiapine Fumarate (seroQUEL TAB) 25 mg HSZ PO 05/29/17 22:00 06/28/17 21:59 05/29/17 21:35 25 MG Lorazepam (Ativan Tab) 0.5 mg Q6 PRN PO 05/29/17 17:15 06/28/17 17:14 Haloperidol Lactate (Haldol Inj) 3 mg Q12 IV 05/30/17 21:00 06/22/17 11:59 Impression 81 year old female with new onset left sided chorea like movement Plan 1. CT head negative for acute findings would be helpful to evaluate for stroke with MRI but patient had pacemaker 2. CK and GFR has improved continue to monitor 3. EEG - read as normal 4. pacemaker interrogated no issues 5. OOB when supervised, continue to help with meals and hydration 6. chorea type movements can be caused by hyperglycemia, hyperthyroid, stroke, lyme. will need further evaluation this is likely stroke. 7. klonopin and gabapentin, seraquel depakote, Keppra, Haldol were tried without improvement in movements 8. repeat CT head as needed may do CT head with contrast if needed 9. carotid doppler no significant stenosis 10. TTE- ASD not assessed 11. cardiology was consulted and her pacemaker was readjusted for movements and restarted metoprolol 12. IV Haldol 2 mg q 6 mg increased to 3 mg q 6 h. Keppra stopped if failure of medications alternatives would trial Xenazine (Tetrabenazaine) patient had received 2 doses of 12.5 mg will need a longer trial to see if effective and will need titrated if discharged. 13. PT/OT for discharge needs and will likely need some rehab prior to returning to her personal care situation 14. continue aspirin 81 mg and plavix 75 mg added, continue for 3 months and then plavix for a lifetime 15. Haldol decreased from QID to TID and then can further ok to then substitute with seraquel to transition for sleep working toward discharge 16. discussion with hospitalist team plans are to discharge to [facility] , switching from Haldol to Seraquel today. Narda from Care Team checking on Tetrabenazaine to see if they can accommodate the medication at discharge. will need follow up in 2-3 weeks after discharge from rehab with Dr Tracie Esposito or Tracie Parks PAC, neurology I have seen and discussed above patient with Dr Tracie Esposito, neurology PT seen and examined. Pt likely going to [place] tomorrow. If pt insurance,/[place] won't over tetrabenazine pt daughter will contact my office and will attempt to obtain from the machined parts metal sprayer. As it would be burdensome for the pt to come to [place] for office visits the [place] physician can contact me for advise. GERI Esposito MD
--- NOTE | 2017-05-30 15:44 | Progress Note ---
Internal Med Progress Note Date of Service: May 30, 2017. Provider Documentation: SUBJECTIVE: Able to sleep last night after starting on Seroquel Per nursing no involuntary movement of left arm or leg noted while asleep Awake-improvement of involuntary movement of left upper extremity OBJECTIVE: Vital Signs-as noted below Exam: General-no sign of distress Eyes-sclera nonicteric, PERRLA/EOMI ENT-moist oral mucosa Neck-no JVD, no carotid bruit Lungs-clear to auscultation no wheezes rales Heart-regular S1-S2 Abdomen-soft nontender Extremities-multiple skin tears noted in both Left upper and lower ext due to constant flailing movement Neuro-mild improvement of involuntary movement on left extremity, Lab data as noted below. ASSESSMENT & PLAN: Left sided hemiballisms/choreoathetoid movement : possible due to acute CVA MRI of brain could not be done due to presence of pacemaker pt continues to have left sided flailing movement appreciate input form Neurology Trial of Xenazine ordered to assess if Choreotic movement will improve -Improvement of sleep and involuntary movement noted with trial of Seroquel 25 mg at bedtime -Patient will continue will continue with aspirin 81 mg and Plavix 75 mg will continue 3 months with double antiplatelet DC aspirin after 3 months Then continue Plavix for lifetime if no bleeding complication noted hx of sick sinus syndrome S/p Pacemaker placement : Cardiology eval appreciated Pacemaker interrogation shows no arrhythmia beta radha dose adjusted DNR/DNI very poor prognosis DVT PROPHYLAXIS Moderate to high risk Subcu Lovenox DISPOSITION Accepted at rehab in [place] Possible transfer to skilled rehab tomorrow 3pm Appreciate input from social service Vital Signs: Date Time Temp Pulse Resp B/P (MAP) Pulse Ox O2 Delivery O2 Flow Rate FiO2 05/30/17 21:48 83 143/80 (101) 05/30/17 20:00 92 Room Air 05/30/17 19:54 36.8 78 20 127/69 (88) 91 Room Air 05/30/17 16:00 92 Room Air 05/30/17 14:42 36.7 82 18 123/50 (74) 92 Room Air 05/30/17 12:00 Room Air 05/30/17 11:25 36.7 82 20 156/78 (104) 91 Room Air 05/30/17 08:00 Room Air 05/30/17 07:23 36.7 77 18 175/81 (112) 95 Room Air 05/30/17 04:00 Room Air 05/30/17 00:00 Room Air 05/29/17 23:06 36.8 69 20 121/50 (73) 98 Room Air Lab Results: Results Past 24 Hours Test 05/30/17 07:20 05/30/17 07:42 05/30/17 11:17 05/30/17 16:32 Range/Units White Blood Count 8.77 4.8-10.8 K/uL Red Blood Count 3.98 4.2-5.4 M/uL Hemoglobin 11.8 12.0-16.0 g/dL Hematocrit 37.3 37-47 % Mean Corpuscular Volume 93.7 80-100 fL Mean Corpuscular Hemoglobin 29.6 25-34 pg Mean Corpuscular Hemoglobin Concent 31.6 32-36 g/dl RDW Standard Deviation 52.0 36.4-46.3 fL RDW Coefficient of Variation 15.4 11.5-14.5 % Platelet Count 344 130-400 K/uL Mean Platelet Volume 10.9 7.4-10.4 fL Creatinine 0.81 0.60-1.20 mg/dl Est Creatinine Clear Calc Drug Dose 52.0 ml/min Estimated GFR () 78.9 Estimated GFR (Non- 68.1 Bedside Glucose 137 170 183 70-90 mg/dl Test 05/30/17 20:35 Range/Units Bedside Glucose 127 70-90 mg/dl
[2017-05-30] MEDS ORDERED: QUETIAPINE FUMARATE 25 MG TAB PO PRN (20:45)
[2017-05-30] MEDS ORDERED: HALOPERIDOL LACTATE 5 MG/ML 1 ML VIAL IV SCH (21:00)
[2017-05-30] MEDS ORDERED: NURSING VERBAL MED ORDER ONE (21:45)
[2017-05-30] MEDS: QUETIAPINE FUMARATE 25 MG TAB PO SCH (21:50)
[2017-05-31 03:32] VITALS: BP 98/51; PULSE 70; TEMP 36.7; O2SAT 92
[2017-05-31] MEDS: LEVOTHYROXINE 88 MCG TAB PO SCH (04:59)
[2017-05-31 07:17] VITALS: BP 118/63; PULSE 94; TEMP 36.8; O2SAT 91
[2017-05-31 07:24] LABS: ALBUMIN 2.6 gm/dl (3.4-5.0); CREATININE 0.81 mg/dl (0.60-1.20); POTASSIUM 3.9 mmol/L (3.5-5.1)
[2017-05-31 07:27] LABS: TOTAL PROTEIN 6.1 gm/dl (6.4-8.2)
[2017-05-31] MEDS: METOPROLOL TARTRATE 25 MG TAB PO SCH ×2 (08:06→20:21)
[2017-05-31] MEDS: CHOLECALCIFEROL 1000 INTER.UNIT TAB PO SCH (08:06)
[2017-05-31] MEDS: CEROVITE ADV FORMULA TAB PO SCH ×2 (08:06→20:22)
[2017-05-31] MEDS: DULOXETINE HCL 60 MG CAP PO SCH (08:06)
[2017-05-31] MEDS: CLOPIDOGREL BISULFATE 75 MG TAB PO SCH (08:06)
[2017-05-31] MEDS: ASPIRIN 81 MG CHEW PO SCH (08:07)
[2017-05-31] MEDS: INSULIN ASPART 100 UNITS/ML 3 ML PEN SC SCH ×4 (08:09→20:32)
[2017-05-31] MEDS: INSULIN GLARGINE SOLOSTAR 100 UNITS/ML 3 ML PEN SC SCH (08:10)
[2017-05-31] MEDS: ENOXAPARIN 40 MG/0.4 ML SYR SQ SCH (08:11)
[2017-05-31] MEDS: TETRABENAZINE 12.5 MG PO SCH (09:56)
[2017-05-31 11:22] VITALS: BP 131/77; PULSE 80; TEMP 36.5; O2SAT 93
[2017-05-31] MEDS: ACETAMINOPHEN 325 MG TAB PO PRN (11:44)
[2017-05-31] MEDS: LORAZEPAM 0.5 MG TAB PO PRN ×2 (11:44→20:22)
--- NOTE | 2017-05-31 12:43 | Pharmacy Progress Note ---
Glycemic: Assessment & Plan Date of Service May 31, 2017. Assessment & Plan The patient is currently receiving 11-18 units of insulin per day. BSGs ranging 127 - 183 mg/dl over the past 24hrs. * Basal insulin: Lantus 11 units every 24 hours (12 units for BSG > 120mg/dl) * Correctional Insulin: Novolog Correction per scale ACHS Goal Range: Low 120 mg/dL - High 160 mg/dL Correction Factor: 45 mg/dL/unit * Prandial insulin: Discontinued yesterday BSGs continue to improve, no changes needed to inpatient regimen at this time. Pharmacy will continue to monitor patient daily and write orders per [facility] inpatient glycemic control protocol. Thanks. * Please note that the plan above was derived based on current level of insulin resistance and hospital stress. These recommendations are appropriate for inpatient admission only. Plan of care upon discharge will need to be reassessed to avoid potential outpatient hypo/hyperglycemia.
[2017-05-31] MEDS ORDERED: SRQ25 PO ×2 (12:44)
--- NOTE | 2017-05-31 12:45 | Discharge Instructions ---
Discharge Instructions Date of Service May 31, 2017. Admission Reason for Admission: Movement Disorder Discharge Discharge Diagnosis / Problem: INVOLUNTARY MOVEMENT OF LEFT ARM AND LEG /CVA Discharge Goals Goal(s): Decrease discomfort, Increase independence, Diagnostic testing, Therapeutic intervention Activity Recommendations Activity Level: Assistance Required Therapies: Physical Therapy, Occupational Therapy . Additional Information Patient informed of condition: Yes Advance Directives: Yes DNR: Yes Level of Care: Skilled Communicable Disease: No Prognosis: Deteriorating [place]ta Catheter: No Instructions / Follow-Up Instructions / Follow-Up continue with aspirin 81 mg and Plavix 75 mg FOR 3 MONTHS aspirin should be discontinued after 3 months Then continue Plavix for lifetime if no bleeding complication noted follow up in 2-3 weeks after discharge from rehab with Dr Tracie Esposito or Tracie Parks PAC, neurology Current Hospital Diet Patient's current hospital diet: Diabetes Type 2 Diet, AHA Diet (Heart Healthy) Discharge Diet Recommended Diet: Regular Diet Pending Studies Studies pending at discharge: no Laboratory Results Hemoglobin A1c Test 05/15/17 05:37 Range/Units Estimated Average Glucose 180 mg/dl Hemoglobin A1c 7.9 H 4.5-5.6 % Medical Emergencies . Who to Call and When: Medical Emergencies: If at any time you feel your situation is an emergency, please call 911 immediately. . Non-Emergent Contact Non-Emergency issues call your: Primary Care Provider . . "Provider Documentation" section prepared by Anastasiya See. . Core Measure Problem Core Measures: Stroke Stroke Core Measures Reason no t-PA for Stroke: Treatment not indicated Reason no antithrom by day 2: Treatment provided - N/A Reason no antithrom at D/C: Treatment provided - N/A Reason no statin at D/C: Treatment provided - N/A Reason no anticoag w/a fib: Treatment not indicated
[2017-05-31 12:54] VITALS: TEMP 36.5; O2SAT 93
[2017-05-31] MEDS ORDERED: TETR25TA2 PO (15:10)
[2017-05-31] MEDS ORDERED: [UNRECOGNIZED DRUG - CODE] PO (15:10)
--- NOTE | 2017-05-31 15:14 | Progress Note ---
Progress Note Date of Service May 31, 2017. Progress Note Discussed with neuro Patient will be discharged to skilled rehab today On tetrabenazine 12.5 mg daily Recommend increase to dose to 25 mg daily starting from June 04, 2017 Patient will be followed at the neurology office 3 weeks after discharge from rehab
--- NOTE | 2017-05-31 16:47 | Discharge Summary ---
Discharge Summary Date of Service May 31, 2017. Discharge Summary Admission Date: May 14, 2017 at 14:17 Discharge Date: May 31, 2017 Discharge Disposition: retirement facility Principal Diagnosis: INVOLUNTARY MOVEMENT OF LEFT ARM AND LEG /CVA Procedures: Echo: Technically difficult study due to patient body movements. Small, underfilled LV chamber size with mild concentric LVH. Hyperdynamic LV systolic function, EF >70%. No segmental left ventricular wall motion abnormalities are noted. Grade I diastolic dysfunction. No significant valvular pathology. EEG: Interpretation This is a normal awake only routine EEG. There was no electrographic seizures or epileptiform discharges. CT head without contrast Impression: 1. No acute territorial infarct. 2. Subcentimeter hypodense foci within the left basal ganglia and posterior limb of the right internal capsule. 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 Consultations: Neurology Cardiology Medication Reconciliation New Medications: Tetrabenazine (Tetrabenazine) 25 Mg Tab 1 TAB PO DAILY for 30 Days START ON 25 MG DAILY DOSE ON 06/04/17 Clopidogrel Bisulfate (Clopidogrel) 75 Mg Tab 75 MG PO QAM for 30 Days, #30 TAB Metoprolol Tartrate (Lopressor) 25 Mg Tab 25 MG PO BID for 30 Days, #60 TAB Quetiapine Fumarate (Quetiapine Fumarate) 25 Mg Tab 12.5 MG PO Q8 PRN for agitation , #30 TAB Quetiapine Fumarate (Quetiapine Fumarate) 25 Mg Tab 25 MG PO HSZ for 30 Days, TAB Tetrabenazine (Tetrabenazine) 12.5 Mg Tab 12.5 MG PO DAILY for 4 Days, #4 TAB increase dose to 25 mg daily on 06/04/17 Continued Medications: Aspirin (Aspirin Chewable) 81 Mg Chew 81 MG PO DAILY Biotin (Biotin) 1,000 Mcg Tab 1000 MCG PO DAILY Cholecalciferol (Vitamin D3) 1,000 Unit Cap 1000 UNITS PO DAILY Duloxetine Hcl (Cymbalta) 60 Mg Cap 60 MG PO DAILY Insulin Glargine (Lantus) 100 Unit/Ml Inj 27 UNITS SQ QAM Insulin Glargine (Lantus) 100 Unit/Ml Inj 11 UNITS SC QPM Insulin Lispro (Human) (Humalog) 100 Unit/Ml Inj 5 UNITS SC TID Insulin Lispro (Human) (Humalog Kwikpen) 100 Unit/Ml Inj UNITS SQ QID SLIDING SCALE Lactobacillus (Acidophilus) 1 Cap Cap 1 CAP PO DAILY Levothyroxine Sodium (Synthroid) 88 Mcg Tab 88 MCG PO DAILY Midodrine (Midodrine HCl) 10 Mg Tab 10 MG PO TID Multiple Vitamins W/ Minerals (Preservision Areds) 1 Cap Cap 1 CAP PO BID Referrals At Discharge Follow up Referrals: Neurologist Referral - Within 6 Weeks with Tracie Esposito M.D. Admission Information HPI (per Admitting provider): Pt is 81 y/o F with PMH CAD s/p CABG, pacemaker for sick sinus syndrome, DM with neuropathy, orthostatic hypotension, hyperlipidemia, hypothyroidism, communication deficit, depression, presented to ER with c/o L arm and leg involuntary movement since yesterday. 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 Daughter reports that when she visited pt yesterday she noticed that that L arm and leg movements were not this severe. In ER pt given ativan and daughter reports that pt fell asleep and that there was slight movement of toes but overall movements of L arm and leg stopped. Feels is more off balance than usual. Typically uses walker to ambulate. Daughter feels like pt is as articulate with her speech today. Reports hx incidentally found stroke on previous head imaging in past. Pt was unaware of any stroke symptoms. Denies hx seizure disorder. Reports hx syncopal episode in 1970's that she had neuro workup for at that time which pt reports as negative and denies recurrent syncope. She states is "restless sleeper" and moves around at night. She is unsure of her movements at night but states will wake up with socks off and bed sheets messed up. Pt reports been told in past has dementia, however then later told that was a mis-diagnosis. Reports FH seizure disorder. Denies fever/chills , diaphoresis, N/V/D/C, KOHLI, dizziness, syncope, vision changes, neck pain, CP, SOB, orthopnea, palpitations, cough, sore throat, choking, otalgia, rhinorrhea, abdominal pain, paresthesias, extremity edema, rashes, urinary symptoms. Physical Exam (per Admitting): General Appearance: WD/WN, + pertinent finding (+movements noted of L arm and L leg) Head: normocephalic, atraumatic Eyes: normal inspection, PERRL, EOMI, sclerae normal ENT: hearing grossly normal, pharynx normal, + pertinent finding (mucous membranes moist) Neck: supple, trachea midline Respiratory/Chest: lungs clear, normal breath sounds, no respiratory distress, no accessory muscle use Cardiovascular: regular rate, rhythm, normal peripheral pulses Abdomen/GI: normal bowel sounds, non tender, soft Back: no CVA tenderness Extremities/Musculoskelatal: no calf tenderness, normal capillary refill, no pedal edema, non-tender Neurologic/Psych: alert, normal mood/affect, oriented x 3, + pertinent finding (+movement to L arm and to L leg. Movement of L arm decreases and practically stops when pt gripping with L hand. 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 Equal and good strength to bilateral arms and legs. unsteady gait, no facial drooping or grimacing. tongue midline) Skin: normal color, warm/dry Hospital Course Physical exam Exam: General-no sign of distress Eyes-sclera nonicteric, PERRLA/EOMI ENT-moist oral mucosa Neck-no JVD, no carotid bruit Lungs-clear to auscultation no wheezes rales Heart-regular S1-S2 Abdomen-soft nontender Extremities-multiple skin tears noted in both Left upper and lower ext due to constant flailing movement Neuro-mild improvement of involuntary movement on left extremity, Assessment and plan: left sided hemiballisms/choreoathetoid movement : possible due to acute CVA MRI of brain could not be done due to presence of pacemaker pt continues to have left sided flailing movement appreciate input form Neurology Trial of Xenazine -Improvement of sleep and involuntary movement noted with trial of Seroquel 25 mg at bedtime -Patient will continue will continue with aspirin 81 mg and Plavix 75 mg will continue 3 months with double antiplatelet DC aspirin after 3 months Then continue Plavix for lifetime if no bleeding complication noted hx of sick sinus syndrome S/p Pacemaker placement : Cardiology eval appreciated Pacemaker interrogation shows no arrhythmia beta radha dose adjusted DNR/DNI very poor prognosis DVT PROPHYLAXIS Moderate to high risk Subcu Lovenox DISPOSITION Accepted at rehab in [place] Discussed with neuro Patient will be discharged to skilled rehab today On tetrabenazine 12.5 mg daily Recommend increase to dose to 25 mg daily starting from June 04, 2017 Patient will be followed at the neurology office 3 weeks after discharge from rehab Total time spent on discharge = 38 minutes This includes examination of the patient, discharge planning, medication reconciliation, and communication with other providers. Discharge Instructions DI: Transfer Non Acute v4 Discharge Instructions Date of Service May 31, 2017. Admission Reason for Admission: Movement Disorder Discharge Discharge Diagnosis / Problem: INVOLUNTARY MOVEMENT OF LEFT ARM AND LEG /CVA Discharge Goals Goal(s): Decrease discomfort, Increase independence, Diagnostic testing, Therapeutic intervention Activity Recommendations Activity Level: Assistance Required Therapies: Physical Therapy, Occupational Therapy . Additional Information Patient informed of condition: Yes Advance Directives: Yes DNR: Yes Level of Care: Skilled Communicable Disease: No Prognosis: Deteriorating [place] Catheter: No Instructions / Follow-Up Instructions / Follow-Up continue with aspirin 81 mg and Plavix 75 mg FOR 3 MONTHS aspirin should be discontinued after 3 months Then continue Plavix for lifetime if no bleeding complication noted follow up in 2-3 weeks after discharge from rehab with Dr Tracie Esposito or Tracie Parks PAC, neurology Current Hospital Diet Patient's current hospital diet: Diabetes Type 2 Diet, AHA Diet (Heart Healthy) Discharge Diet Recommended Diet: Regular Diet Pending Studies Studies pending at discharge: no Laboratory Results Hemoglobin A1c Test 05/15/17 05:37 Range/Units Estimated Average Glucose 180 mg/dl Hemoglobin A1c 7.9 H 4.5-5.6 % Medical Emergencies . Who to Call and When: Medical Emergencies: If at any time you feel your situation is an emergency, please call 911 immediately. . Non-Emergent Contact Non-Emergency issues call your: Primary Care Provider . . "Provider Documentation" section prepared by Anastasiya See. . Core Measure Problem Core Measures: Stroke Stroke Core Measures Reason no t-PA for Stroke: Treatment not indicated Reason no antithrom by day 2: Treatment provided - N/A Reason no antithrom at D/C: Treatment provided - N/A Reason no statin at D/C: Treatment provided - N/A Reason no anticoag w/a fib: Treatment not indicated
[2017-05-31 20:21] VITALS: BP 121/71; PULSE 79
[2017-05-31] MEDS: QUETIAPINE FUMARATE 25 MG TAB PO SCH (20:22)
== END 2017-05-31 22:30 | DRG 65 ==
LOC: C.EDB 09:17 → C.MED 14:17 → ENRESERV 14:54 → C.MED 05-16 10:28
PROVIDERS: ADMIT Hospitalist; ATTEND Hospitalist
DX: I63.9 Cerebral infarction, unspecified (principal); M62.82 Rhabdomyolysis; E11.40 Type 2 diabetes mellitus with diabetic neuropathy, unspecified; G25.5 Other chorea; I25.10 Atherosclerotic heart disease of native coronary artery without angina pectoris; I95.1 Orthostatic hypotension; E78.5 Hyperlipidemia, unspecified; E03.9 Hypothyroidism, unspecified; K21.9 Gastro-esophageal reflux disease without esophagitis; Z66 Do not resuscitate; F32.9 Major depressive disorder, single episode, unspecified; R00.0 Tachycardia, unspecified; F03.90 Unspecified dementia, unspecified severity, without behavioral disturbance, psychotic disturbance, mood disturbance, and anxiety; Z95.1 Presence of aortocoronary bypass graft; Z88.8 Allergy status to other drugs, medicaments and biological substances; Z53.09 Procedure and treatment not carried out because of other contraindication; Z88.1 Allergy status to other antibiotic agents; Z79.4 Long term (current) use of insulin; Z95.0 Presence of cardiac pacemaker; Z79.82 Long term (current) use of aspirin